=== PATIENT | female | born 1935 | race African-American/Black ===

== ENCOUNTER → 2016-11-19 | Outpatient (CLI) | payer MEDICARE, OTHER ==
[~2016-11-19] VITALS: Ht 160 cm; Wt 87.5 kg
[~2016-11-19] MED LIST: ALBU8.5H IH; ATOR10TA84 PO; AUD NEB; CHOL200018 PO; DIGO125T PO; DILT120C48 PO; DOCU250C91 PO; ESOM20CA31 PO; FERR-89 PO; FLUT1BLS PO; FURO20 PO; INSU3INS3 SQ; INSU3INS5 SQ; IPRNEB IH; LATA2.5D2 OS; LEVO112T4 PO; LISI-662 PO; ONDA4 PO; OXYB5 PO; PARO10TA89 PO; PRED5 PO; PREDAOS OS; RIVA15T PO; UMEC62.5 PO
[2016-11-19 11:46] VITALS: BP 151/80
[2016-11-19 14:46] LABS: GLUCOSE COMMENT 1 Doctor Notified; GLUCOSE,POINT OF CARE 135 MG/DL (70-110)
== END | disposition home or self-care (01) ==
LOC: SRCNTR 11:10
PROVIDERS: ATTEND Hospitalist
DX: J44.9 Chronic obstructive pulmonary disease, unspecified (principal); I10 Essential (primary) hypertension; E04.1 Nontoxic single thyroid nodule; E11.40 Type 2 diabetes mellitus with diabetic neuropathy, unspecified; I73.9 Peripheral vascular disease, unspecified; I48.91 Unspecified atrial fibrillation; Z85.038 Personal history of other malignant neoplasm of large intestine; N63 Unspecified lump in breast; R91.1 Solitary pulmonary nodule; N39.0 Urinary tract infection, site not specified; E78.5 Hyperlipidemia, unspecified; I77.1 Stricture of artery
CPT/HCPCS: 82962; G0463

== ENCOUNTER → 2016-11-30 | Outpatient (CLI) | payer MEDICARE, OTHER ==
[~2016-11-30] MED LIST changes: -PREDAOS OS
[2016-11-30 11:04] VITALS: BP 105/82
[2016-11-30 14:07] LABS: GLUCOSE COMMENT 1 Doctor Notified; GLUCOSE,POINT OF CARE 149 MG/DL (70-110)
== END | disposition home or self-care (01) ==
LOC: SRCNTR 10:52
PROVIDERS: ATTEND Hospitalist
DX: J44.9 Chronic obstructive pulmonary disease, unspecified (principal); I10 Essential (primary) hypertension; I48.91 Unspecified atrial fibrillation; E11.9 Type 2 diabetes mellitus without complications; E03.9 Hypothyroidism, unspecified; E78.5 Hyperlipidemia, unspecified
CPT/HCPCS: 82962; G0463

== ENCOUNTER → 2016-11-30 | Outpatient (CLI) | payer MEDICARE, OTHER | END | disposition home or self-care (01) | LOC: RADPV 09:02 | PROVIDERS: ATTEND Hospitalist | DX: J18.9 Pneumonia, unspecified organism (principal); I70.0 Atherosclerosis of aorta; I89.8 Other specified noninfective disorders of lymphatic vessels and lymph nodes; L92.8 Other granulomatous disorders of the skin and subcutaneous tissue | CPT/HCPCS: 71020 ==

== ENCOUNTER → 2016-11-30 | Outpatient (CLI) | payer MEDICARE, OTHER ==
[~2016-11-30] MED LIST changes: -FERR-89 PO; +FERS325 PO
[2016-11-30 12:26] LABS: BASOPHILS % (AUTO) 0.4 % (0.0-2.0); EOSINOPHILS % (AUTO) 2.4 % (1.0-6.0); HEMATOCRIT 42.7 % (36-46); HEMOGLOBIN 13.4 g/dL (12.0-16.0); LYMPHOCYTES # (AUTO) 1.9 K/uL (1.0-4.8); LYMPHOCYTES % (AUTO) 12.1 % (22.0-44.0); MEAN CORPUSCULAR HEMOGLOBIN 25.4 pg (26.0-34.0); MEAN CORPUSCULAR HGB CONC 31.3 G/dL (31.0-37.0); MEAN CORPUSCULAR VOLUME 81 fL (80-100); MONOCYTES # (AUTO) 0.7 K/uL (0.1-1.0); MONOCYTES % (AUTO) 4.6 % (2.0-9.0); NEUTROPHILS # (AUTO) 12.5 K/uL (1.8-7.7); NEUTROPHILS % (AUTO) 80.5 % (40.0-70.0); PLATELET COUNT (AUTO) 286 K/uL (150-450); RED BLOOD CELL COUNT(AUTO) 5.26 MIL/uL (4.00-5.20); RED CELL DISTRIBUTION WIDTH 19.4 % (11.5-14.5); WHITE BLOOD COUNT (AUTO) 15.5 K/uL (4.5-11.0)
[2016-11-30 12:40] LABS: ALANINE AMINOTRANSFERASE 17 U/L (12-78); ALBUMIN 2.5 g/dL (3.4-5.0); ANION GAP 5 mmol/L (8-16); ASPARTATE AMINOTRANSFERASE 34 U/L (15-37); BILIRUBIN,TOTAL 0.5 mg/dL (0.1-1.0); CALCIUM, TOTAL 9.1 mg/dL (8.8-10.5); CARBON DIOXIDE 32 mmol/L (22-29); CHLORIDE 101 mmol/L (98-107); CHOL/HDL RATIO 3.2 (3.9-5.7); CREATININE 1.03 mg/dL (0.60-1.30); GLOMERULAR FILTR. RATE CALC > 60 mL/min (>60); POTASSIUM 4.4 mmol/L (3.5-5.1); SODIUM SERUM 138 mmol/L (136-145); THYROID STIMULATING HORMONE 5.99 uIU/mL (0.36-3.74); UREA NITROGEN, BLOOD 10 mg/dL (7-18)
[2016-11-30 12:44] LABS: RBC MORPHOLOGY COMMENT ABNORMAL RBC MORPH
[2016-11-30 13:12] LABS: HEMOGLOBIN A1C 8.1 % (4.5-6.2)
== END | disposition home or self-care (01) ==
LOC: LABPV 08:59
PROVIDERS: ATTEND Internal Medicine Cardiovascular Disease
DX: I11.0 Hypertensive heart disease with heart failure (principal); I50.9 Heart failure, unspecified; E11.8 Type 2 diabetes mellitus with unspecified complications; M81.0 Age-related osteoporosis without current pathological fracture
CPT/HCPCS: 82306; 83036; 84439; 84443

== ENCOUNTER → 2016-12-13 | Outpatient (CLI) | payer MEDICARE, OTHER ==
[~2016-12-13] VITALS: Ht 160 cm; Wt 82.0 kg
[~2016-12-13] MED LIST changes: +FERR-89 PO; -FERS325 PO
[2016-12-13 11:16] VITALS: BP 89/67
== END | disposition home or self-care (01) ==
LOC: SRCNTR 11:09
PROVIDERS: ATTEND Internal Medicine Critical Care Medicine
DX: I10 Essential (primary) hypertension (principal); J44.9 Chronic obstructive pulmonary disease, unspecified; G47.33 Obstructive sleep apnea (adult) (pediatric); J96.10 Chronic respiratory failure, unspecified whether with hypoxia or hypercapnia; E03.9 Hypothyroidism, unspecified; E11.9 Type 2 diabetes mellitus without complications; C18.9 Malignant neoplasm of colon, unspecified; E66.01 Morbid (severe) obesity due to excess calories
CPT/HCPCS: G0463

== ENCOUNTER → 2016-12-31 | Outpatient (CLI) | payer MEDICARE, OTHER ==
[2016-12-31 11:21] VITALS: BP 136/62
[2016-12-31 14:07] LABS: GLUCOSE,POINT OF CARE 106 MG/DL (70-110)
== END | disposition home or self-care (01) ==
LOC: SRCNTR 11:07
PROVIDERS: ATTEND Hospitalist
DX: J44.9 Chronic obstructive pulmonary disease, unspecified (principal); I10 Essential (primary) hypertension; E03.9 Hypothyroidism, unspecified; E66.01 Morbid (severe) obesity due to excess calories; G47.33 Obstructive sleep apnea (adult) (pediatric); E78.5 Hyperlipidemia, unspecified; E11.40 Type 2 diabetes mellitus with diabetic neuropathy, unspecified; I73.9 Peripheral vascular disease, unspecified; I48.91 Unspecified atrial fibrillation; R91.1 Solitary pulmonary nodule; N63 Unspecified lump in breast; N39.0 Urinary tract infection, site not specified; I77.1 Stricture of artery; Z85.038 Personal history of other malignant neoplasm of large intestine
CPT/HCPCS: 82962; G0463

== ENCOUNTER → 2017-02-11 | Outpatient (CLI) | payer MEDICARE, OTHER ==
[~2017-02-11] VITALS: Ht 160 cm; Wt 81.5 kg
[2017-02-11 10:20] VITALS: BP 113/65
[2017-02-11 10:42] LABS: GLUCOSE,POINT OF CARE 118 MG/DL (70-110)
== END | disposition home or self-care (01) ==
LOC: SRCNTR 10:11
PROVIDERS: ATTEND Hospitalist
DX: E11.65 Type 2 diabetes mellitus with hyperglycemia (principal); J44.9 Chronic obstructive pulmonary disease, unspecified; I10 Essential (primary) hypertension; E78.5 Hyperlipidemia, unspecified; E11.40 Type 2 diabetes mellitus with diabetic neuropathy, unspecified; I73.9 Peripheral vascular disease, unspecified; I48.91 Unspecified atrial fibrillation; E04.1 Nontoxic single thyroid nodule; N63 Unspecified lump in breast; G47.33 Obstructive sleep apnea (adult) (pediatric); R91.8 Other nonspecific abnormal finding of lung field; Z99.81 Dependence on supplemental oxygen; Z85.038 Personal history of other malignant neoplasm of large intestine
CPT/HCPCS: 82962; G0463

== ENCOUNTER → 2017-03-18 | Outpatient (CLI) | payer MEDICARE, OTHER ==
[2017-03-18 12:59] LABS: HEMOGLOBIN A1C 7.3 % (4.5-6.2)
[2017-03-18 13:02] LABS: EOSINOPHILS % (AUTO) 0.3 % (1.0-6.0); HEMATOCRIT 48.3 % (36-46); HEMOGLOBIN 15.4 g/dL (12.0-16.0); LYMPHOCYTES # (AUTO) 0.9 K/uL (1.0-4.8); MEAN CORPUSCULAR HEMOGLOBIN 25.5 pg (26.0-34.0); MEAN CORPUSCULAR HGB CONC 31.9 G/dL (31.0-37.0); MEAN CORPUSCULAR VOLUME 80 fL (80-100); MONOCYTES # (AUTO) 0.5 K/uL (0.1-1.0); MONOCYTES % (AUTO) 2.3 % (2.0-9.0); NEUTROPHILS # (AUTO) 21.7 K/uL (1.8-7.7); NEUTROPHILS % (AUTO) 93.4 % (40.0-70.0); PLATELET COUNT (AUTO) 331 K/uL (150-450); RBC MORPHOLOGY COMMENT ABNORMAL RBC MORPH; RED BLOOD CELL COUNT(AUTO) 6.04 MIL/uL (4.00-5.20); RED CELL DISTRIBUTION WIDTH 19.7 % (11.5-14.5); WHITE BLOOD COUNT (AUTO) 23.2 K/uL (4.5-11.0)
[2017-03-18 13:48] LABS: ALANINE AMINOTRANSFERASE 40 U/L (12-78); ALBUMIN 2.6 g/dL (3.4-5.0); ANION GAP 5 mmol/L (8-16); ASPARTATE AMINOTRANSFERASE 28 U/L (15-37); BILIRUBIN,TOTAL 0.5 mg/dL (0.1-1.0); CALCIUM, TOTAL 9.3 mg/dL (8.8-10.5); CARBON DIOXIDE 32 mmol/L (22-29); CHLORIDE 101 mmol/L (98-107); CHOL/HDL RATIO 3.6 (3.9-5.7); CREATININE 0.91 mg/dL (0.60-1.30); GLOMERULAR FILTR. RATE CALC > 60 mL/min (>60); POTASSIUM 3.8 mmol/L (3.5-5.1); SODIUM SERUM 138 mmol/L (136-145); THYROID STIMULATING HORMONE 1.04 uIU/mL (0.36-3.74); TOTAL PROTEIN, SERUM 7.7 g/dL (6.4-8.2); UREA NITROGEN, BLOOD 18 mg/dL (7-18)
[2017-03-18 13:49] LABS: DIGOXIN < 0.20 ng/mL (0.90-2.00)
== END | disposition home or self-care (01) ==
LOC: LABPV 11:31
PROVIDERS: ATTEND Internal Medicine Cardiovascular Disease
DX: I11.0 Hypertensive heart disease with heart failure (principal); I50.9 Heart failure, unspecified; E55.9 Vitamin D deficiency, unspecified; E11.8 Type 2 diabetes mellitus with unspecified complications
CPT/HCPCS: 82306; 83036; 83735; 84439; 84443

== ENCOUNTER → 2017-03-25 | Outpatient (CLI) | payer MEDICARE, OTHER ==
[~2017-03-25] VITALS: Ht 160 cm; Wt 76.8 kg
[2017-03-25 11:21] VITALS: BP 114/66
[2017-03-25 16:32] LABS: GLUCOSE COMMENT 1 Received Meds; GLUCOSE COMMENT 3 Doctor Notified; GLUCOSE,POINT OF CARE 197 MG/DL (70-110)
== END | disposition home or self-care (01) ==
LOC: SRCNTR 11:12
PROVIDERS: ATTEND Hospitalist
DX: I10 Essential (primary) hypertension (principal); J44.9 Chronic obstructive pulmonary disease, unspecified; E11.65 Type 2 diabetes mellitus with hyperglycemia; E78.5 Hyperlipidemia, unspecified
CPT/HCPCS: 82962; G0463

== ENCOUNTER → 2017-05-03 | Outpatient (CLI) | payer MEDICARE, OTHER ==
[~2017-05-03] MED LIST changes: -LATA2.5D2 OS
[2017-05-03 13:36] LABS: BASOPHILS # (AUTO) 0.01 K/uL (0.00-0.20); BASOPHILS % (AUTO) 0.1 % (0.0-2.0); EOSINOPHILS # (AUTO) 0.15 K/uL (0.00-0.70); EOSINOPHILS % (AUTO) 0.72 % (1.0-6.0); HEMATOCRIT 43.3 % (36-46); HEMOGLOBIN 13.8 g/dL (12.0-16.0); LYMPHOCYTES # (AUTO) 1.3 K/uL (1.0-4.8); LYMPHOCYTES % (AUTO) 6.3 % (22.0-44.0); MEAN CORPUSCULAR HEMOGLOBIN 26.6 pg (26.0-34.0); MEAN CORPUSCULAR HGB CONC 31.9 G/dL (31.0-37.0); MEAN CORPUSCULAR VOLUME 83 fL (80-100); MONOCYTES # (AUTO) 0.9 K/uL (0.1-1.0); MONOCYTES % (AUTO) 4.5 % (2.0-9.0); NEUTROPHILS # (AUTO) 18.1 K/uL (1.8-7.7); PLATELET COUNT (AUTO) 267 K/uL (150-450); RED CELL DISTRIBUTION WIDTH 21.8 % (11.5-14.5); WHITE BLOOD COUNT (AUTO) 20.5 K/uL (4.5-11.0)
[2017-05-03 13:37] LABS: NEUTROPHILS % (AUTO) 88.4 % (40.0-70.0); RBC MORPHOLOGY COMMENT ABNORMAL RBC MORPH
[2017-05-03 13:50] LABS: HEMOGLOBIN A1C 9.1 % (4.5-6.2)
[2017-05-03 13:53] LABS: ALANINE AMINOTRANSFERASE 25 U/L (12-78); ALBUMIN 2.7 g/dL (3.4-5.0); ANION GAP 7 mmol/L (8-16); ASPARTATE AMINOTRANSFERASE 21 U/L (15-37); BILIRUBIN,TOTAL 0.5 mg/dL (0.1-1.0); CALCIUM, TOTAL 9.6 mg/dL (8.8-10.5); CARBON DIOXIDE 31 mmol/L (22-29); CHLORIDE 101 mmol/L (98-107); CHOL/HDL RATIO 2.7 (3.9-5.7); CREATININE 0.85 mg/dL (0.60-1.30); GLOMERULAR FILTR. RATE CALC > 60 mL/min (>60); POTASSIUM 3.7 mmol/L (3.5-5.1); SODIUM SERUM 139 mmol/L (136-145); THYROID STIMULATING HORMONE 3.85 uIU/mL (0.36-3.74); TOTAL PROTEIN, SERUM 7.8 g/dL (6.4-8.2); UREA NITROGEN, BLOOD 9 mg/dL (7-18)
== END | disposition home or self-care (01) ==
LOC: LABPV 11:31
PROVIDERS: ATTEND Internal Medicine Cardiovascular Disease
DX: I11.0 Hypertensive heart disease with heart failure (principal); I50.9 Heart failure, unspecified; E11.8 Type 2 diabetes mellitus with unspecified complications; E55.9 Vitamin D deficiency, unspecified
CPT/HCPCS: 82306; 83036; 83735; 84439; 84443

== ENCOUNTER 2017-07-18 09:49 | Inpatient (IN) | payer MEDICARE, OTHER ==
[~2017-07-18] VITALS: Ht 154.9 cm; Wt 83.7 kg
[~2017-07-18 09:49] MED LIST changes: +ACET-784 PO; -ALBU8.5H IH; +ALBU8.5H8 IH; -ATOR10TA84 PO; +CARB15DR94 OD; +CEFA1IV IV; +NTP TD; +ROSU10 PO
[2017-07-18 10:44] LABS: HEMATOCRIT 32.9 % (36-46); HEMOGLOBIN 10.7 g/dL (12.0-16.0); MEAN CORPUSCULAR HEMOGLOBIN 27.5 pg (26.0-34.0); MEAN CORPUSCULAR HGB CONC 32.5 G/dL (31.0-37.0); MEAN CORPUSCULAR VOLUME 85 fL (80-100); PLATELET COUNT (AUTO) 249 K/uL (150-450); RED BLOOD CELL COUNT(AUTO) 3.89 MIL/uL (4.00-5.20); RED CELL DISTRIBUTION WIDTH 17.9 % (11.5-14.5)
[2017-07-18 10:47] LABS: WHITE BLOOD COUNT (AUTO) 33.4 K/uL (4.5-11.0)
[2017-07-18 10:54] LABS: ANION GAP 2 mmol/L (8-16); CALCIUM, TOTAL 8.9 mg/dL (8.8-10.5); CARBON DIOXIDE 31 mmol/L (22-29); CHLORIDE 99 mmol/L (98-107); CREATININE 0.77 mg/dL (0.60-1.30); GLOMERULAR FILTR. RATE CALC > 60 mL/min (>60); POTASSIUM 4.4 mmol/L (3.5-5.1); SODIUM SERUM 132 mmol/L (136-145); UREA NITROGEN, BLOOD 18 mg/dL (7-18)
[2017-07-18 10:59] LABS: ALANINE AMINOTRANSFERASE 18 U/L (12-78); ALBUMIN 1.9 g/dL (3.4-5.0); ASPARTATE AMINOTRANSFERASE 13 U/L (15-37); BILIRUBIN,TOTAL 0.4 mg/dL (0.1-1.0)
[2017-07-18 11:01] LABS: BAND NEUTROPHILS % (MANUAL) 8 % (1-5); LYMPHOCYTES % (MANUAL) 4 % (22-44); TOTAL CELLS COUNTED 100
[2017-07-18 11:02] LABS: RBC MORPHOLOGY COMMENT ABNORMAL RBC MORPH
[2017-07-18 11:03] LABS: GLUCOSE,POINT OF CARE 217 MG/DL (70-110)
[2017-07-18 11:04] LABS: LACTIC ACID 1.3 mmol/L (0.4-2.0)
[2017-07-18 11:12] LABS: APPEARANCE,URINE CLOUDY (CLEAR); GLUCOSE, URINE (UA) NEGATIVE (NEGATIVE); KETONES,URINE NEGATIVE (NEGATIVE); LEUKOCYTE ESTERASE ,URINE LARGE (NEGATIVE); OCCULT BLOOD,URINE SMALL (NEGATIVE); PH,URINE 5.5 (5.0-8.0); PROTEIN,URINE SEE CONFIRM (NEGATIVE)
[2017-07-18 11:22] LABS: SULFOSALICYLIC ACID,URINE 3+ (Negative)
[2017-07-18 11:23] LABS: SQUAMOUS EPITHELIAL CELL,UR Few /LPF (None Seen); WBC,URINE 51-100 /HPF (0-5)
[2017-07-18] MEDS ORDERED: CefTRIAXone 1 GM/DEXTROSE 50 ML IV ONE (11:45)
[2017-07-18] MEDS ORDERED: ACETAMINOPHEN 325 MG TABLET PO PRN ×2 (13:15→13:45)
[2017-07-18] MEDS ORDERED: ONDANSETRON HCL 4 MG/2 ML VIAL IVP PRN (13:15)
[2017-07-18] MEDS ORDERED: ALBUTEROL SULFATE 2.5 MG/0.5 ML NEB SOLUTION NEB PRN (13:45)
[2017-07-18] MEDS ORDERED: POTASSIUM CHL 10 MEQ/WATER 50 ML IV PRN (13:45)
[2017-07-18] MEDS ORDERED: DEXTROSE 50%-WATER 25 GM/50 ML SYRINGE IVP PRN (13:45)
[2017-07-18] MEDS ORDERED: POTASSIUM CHLORIDE 20 MEQ ER TABLET PO PRN (13:45)
[2017-07-18 14:26] VITALS: BP 100/73
[2017-07-18] MEDS: DILTIAZEM HCL CD 120 MG ER CAPSULE PO SCH (14:53)
[2017-07-18 15:54] VITALS: BP 110/69
[2017-07-18] MEDS: RIVAROXABAN 15 MG TABLET PO SCH (17:39)
[2017-07-18] MEDS: INSULIN ASPART 100 UNITS/ML SQ PRN ×2 (17:46→22:04)
[2017-07-18 19:26] VITALS: BP 120/74
[2017-07-18] MEDS: DOCUSATE SODIUM 100 MG CAPSULE PO SCH (20:11)
[2017-07-18] MEDS: ROSUVASTATIN CALCIUM 10 MG TABLET PO SCH (20:11)
[2017-07-18 23:13] VITALS: BP 105/88
[2017-07-19 05:09] VITALS: BP 112/68
[2017-07-19] MEDS: INSULIN ASPART 100 UNITS/ML SQ PRN ×3 (05:59→18:03)
[2017-07-19 06:53] LABS: GLUCOSE COMMENT 1 Juice/Food/D50 Given; GLUCOSE,POINT OF CARE 177 MG/DL (70-110)
[2017-07-19 06:53] LABS: GLUCOSE,POINT OF CARE 162 MG/DL (70-110)
[2017-07-19 07:50] VITALS: BP 130/73
[2017-07-19] MEDS: PANTOPRAZOLE SODIUM 40 MG DR TABLET PO SCH (09:20)
[2017-07-19] MEDS: DOCUSATE SODIUM 100 MG CAPSULE PO SCH ×2 (09:20→20:31)
[2017-07-19] MEDS: DILTIAZEM HCL CD 120 MG ER CAPSULE PO SCH (09:20)
[2017-07-19] MEDS: CHOLECALCIFEROL (VIT D3) 1,000 UNITS TABLET PO SCH (09:20)
[2017-07-19] MEDS: DIGOXIN 125 MCG TABLET PO SCH (09:20)
[2017-07-19] MEDS ORDERED: SODIUM CHLORIDE 0.9% 250 ML IV ONE (09:22)
[2017-07-19] MEDS: CefTRIAXone 1 GM/DEXTROSE 50 ML IV SCH (09:23)
[2017-07-19 11:15] VITALS: BP 133/73
[2017-07-19] MEDS ORDERED: INFLUENZA VIRUS VACCINE QVS 2017-18 (3YR+)/PF 60 MCG/0.5 ML SYRINGE IM ONE (16:00)
[2017-07-19] MEDS: RIVAROXABAN 15 MG TABLET PO SCH (18:01)
[2017-07-19 20:00] VITALS: BP 156/63
[2017-07-19] MEDS: MAGNESIUM HYDROXIDE SUSPENSION 30 ML UDCUP PO PRN (20:30)
[2017-07-19] MEDS: ROSUVASTATIN CALCIUM 10 MG TABLET PO SCH (20:30)
[2017-07-20] VITALS (7 sets, daily range): BP systolic 128–173; BP diastolic 56–94
[2017-07-20 06:07] LABS: EOSINOPHILS % (AUTO) 1.2 % (1.0-6.0); HEMATOCRIT 34.6 % (36-46); HEMOGLOBIN 11.2 g/dL (12.0-16.0); LYMPHOCYTES # (AUTO) 1.4 K/uL (1.0-4.8); LYMPHOCYTES % (AUTO) 6.7 % (22.0-44.0); MEAN CORPUSCULAR HEMOGLOBIN 27.4 pg (26.0-34.0); MEAN CORPUSCULAR HGB CONC 32.4 G/dL (31.0-37.0); MEAN CORPUSCULAR VOLUME 85 fL (80-100); MONOCYTES # (AUTO) 0.7 K/uL (0.1-1.0); MONOCYTES % (AUTO) 3.3 % (2.0-9.0); NEUTROPHILS # (AUTO) 18.2 K/uL (1.8-7.7); PLATELET COUNT (AUTO) 276 K/uL (150-450); RED BLOOD CELL COUNT(AUTO) 4.08 MIL/uL (4.00-5.20); RED CELL DISTRIBUTION WIDTH 17.7 % (11.5-14.5); WHITE BLOOD COUNT (AUTO) 20.6 K/uL (4.5-11.0)
[2017-07-20] MEDS: INSULIN ASPART 100 UNITS/ML SQ PRN ×4 (06:35→20:52)
[2017-07-20 06:36] LABS: ANION GAP 3 mmol/L (8-16); CALCIUM, TOTAL 8.5 mg/dL (8.8-10.5); CARBON DIOXIDE 32 mmol/L (22-29); CHLORIDE 98 mmol/L (98-107); GLOMERULAR FILTR. RATE CALC > 60 mL/min (>60); POTASSIUM 3.9 mmol/L (3.5-5.1); SODIUM SERUM 133 mmol/L (136-145); UREA NITROGEN, BLOOD 9 mg/dL (7-18)
[2017-07-20 06:38] LABS: GLUCOSE,POINT OF CARE 205 MG/DL (70-110)
[2017-07-20 06:48] LABS: GLUCOSE,POINT OF CARE 169 MG/DL (70-110)
[2017-07-20 06:48] LABS: GLUCOSE,POINT OF CARE 225 MG/DL (70-110)
[2017-07-20 06:48] LABS: GLUCOSE,POINT OF CARE 189 MG/DL (70-110)
[2017-07-20 06:59] LABS: NEUTROPHILS % (AUTO) 88.8 % (40.0-70.0)
[2017-07-20] MEDS: DOCUSATE SODIUM 100 MG CAPSULE PO SCH ×2 (08:04→20:43)
[2017-07-20] MEDS: DILTIAZEM HCL CD 120 MG ER CAPSULE PO SCH (08:06)
[2017-07-20] MEDS: PANTOPRAZOLE SODIUM 40 MG DR TABLET PO SCH (08:06)
[2017-07-20] MEDS: CHOLECALCIFEROL (VIT D3) 1,000 UNITS TABLET PO SCH (08:06)
[2017-07-20] MEDS: DIGOXIN 125 MCG TABLET PO SCH (08:07)
[2017-07-20 08:50] LABS: RBC MORPHOLOGY COMMENT ABNORMAL RBC MORPH
[2017-07-20] MEDS: CefTRIAXone 1 GM/DEXTROSE 50 ML IV SCH (09:58)
[2017-07-20] MEDS: RIVAROXABAN 15 MG TABLET PO SCH (17:07)
[2017-07-20 17:13] LABS: GLUCOSE,POINT OF CARE 330 MG/DL (70-110)
[2017-07-20] MEDS ORDERED: BISACODYL 5 MG EC TABLET PO PRN (18:15)
[2017-07-20] MEDS: MAGNESIUM HYDROXIDE SUSPENSION 30 ML UDCUP PO PRN (20:43)
[2017-07-20] MEDS: ROSUVASTATIN CALCIUM 10 MG TABLET PO SCH (22:00)
[2017-07-20 23:33] LABS: GLUCOSE,POINT OF CARE 299 MG/DL (70-110)
[2017-07-21 05:06] VITALS: BP 124/88
[2017-07-21] MEDS: INSULIN ASPART 100 UNITS/ML SQ PRN ×4 (06:26→20:27)
[2017-07-21 06:27] LABS: BASOPHILS % (AUTO) 0.2 % (0.0-2.0); EOSINOPHILS % (AUTO) 1.2 % (1.0-6.0); HEMATOCRIT 36.3 % (36-46); HEMOGLOBIN 11.6 g/dL (12.0-16.0); LYMPHOCYTES # (AUTO) 2.2 K/uL (1.0-4.8); LYMPHOCYTES % (AUTO) 10.3 % (22.0-44.0); MEAN CORPUSCULAR HEMOGLOBIN 27.2 pg (26.0-34.0); MEAN CORPUSCULAR VOLUME 85 fL (80-100); MONOCYTES # (AUTO) 1.2 K/uL (0.1-1.0); MONOCYTES % (AUTO) 5.5 % (2.0-9.0); NEUTROPHILS # (AUTO) 17.6 K/uL (1.8-7.7); NEUTROPHILS % (AUTO) 82.8 % (40.0-70.0); PLATELET COUNT (AUTO) 299 K/uL (150-450); RED BLOOD CELL COUNT(AUTO) 4.27 MIL/uL (4.00-5.20); RED CELL DISTRIBUTION WIDTH 17.7 % (11.5-14.5); WHITE BLOOD COUNT (AUTO) 21.3 K/uL (4.5-11.0)
[2017-07-21 07:33] VITALS: BP 116/68
[2017-07-21] MEDS: DOCUSATE SODIUM 100 MG CAPSULE PO SCH ×2 (08:18→20:23)
[2017-07-21] MEDS: CHOLECALCIFEROL (VIT D3) 1,000 UNITS TABLET PO SCH (08:18)
[2017-07-21] MEDS: PANTOPRAZOLE SODIUM 40 MG DR TABLET PO SCH (08:18)
[2017-07-21] MEDS: DIGOXIN 125 MCG TABLET PO SCH (08:18)
[2017-07-21] MEDS: DILTIAZEM HCL CD 120 MG ER CAPSULE PO SCH (08:18)
[2017-07-21 08:51] LABS: RBC MORPHOLOGY COMMENT ABNORMAL RBC MORPH
[2017-07-21 10:02] LABS: GLUCOSE,POINT OF CARE 235 MG/DL (70-110)
[2017-07-21] MEDS: CefTRIAXone 1 GM/DEXTROSE 50 ML IV SCH (10:46)
[2017-07-21] MEDS: INSULIN DETEMIR 100 UNITS/ML SQ SCH (10:52)
[2017-07-21 11:11] LABS: GLUCOSE,POINT OF CARE 191 MG/DL (70-110)
[2017-07-21 11:46] VITALS: BP 99/62
[2017-07-21 15:50] VITALS: BP 154/62
[2017-07-21] MEDS: RIVAROXABAN 15 MG TABLET PO SCH (16:34)
[2017-07-21 16:48] LABS: GLUCOSE,POINT OF CARE 234 MG/DL (70-110)
[2017-07-21 19:31] VITALS: BP 153/70
[2017-07-21] MEDS: ROSUVASTATIN CALCIUM 10 MG TABLET PO SCH (20:23)
[2017-07-21 22:02] LABS: GLUCOSE,POINT OF CARE 247 MG/DL (70-110)
[2017-07-21 23:40] VITALS: BP 154/57
[2017-07-22 04:49] VITALS: BP 160/73
[2017-07-22] MEDS: INSULIN ASPART 100 UNITS/ML SQ PRN ×2 (05:44→12:26)
[2017-07-22 06:40] LABS: BASOPHILS % (AUTO) 0.1 % (0.0-2.0); EOSINOPHILS % (AUTO) 2.3 % (1.0-6.0); HEMATOCRIT 36.1 % (36-46); HEMOGLOBIN 11.6 g/dL (12.0-16.0); LYMPHOCYTES # (AUTO) 1.7 K/uL (1.0-4.8); LYMPHOCYTES % (AUTO) 10.2 % (22.0-44.0); MEAN CORPUSCULAR HEMOGLOBIN 27.1 pg (26.0-34.0); MEAN CORPUSCULAR HGB CONC 32.1 G/dL (31.0-37.0); MEAN CORPUSCULAR VOLUME 85 fL (80-100); MONOCYTES # (AUTO) 0.7 K/uL (0.1-1.0); MONOCYTES % (AUTO) 4.4 % (2.0-9.0); NEUTROPHILS # (AUTO) 13.8 K/uL (1.8-7.7); PLATELET COUNT (AUTO) 284 K/uL (150-450); RED BLOOD CELL COUNT(AUTO) 4.27 MIL/uL (4.00-5.20); RED CELL DISTRIBUTION WIDTH 17.7 % (11.5-14.5); WHITE BLOOD COUNT (AUTO) 16.7 K/uL (4.5-11.0)
[2017-07-22 07:55] VITALS: BP 162/69
[2017-07-22] MEDS: CHOLECALCIFEROL (VIT D3) 1,000 UNITS TABLET PO SCH (08:41)
[2017-07-22] MEDS: PANTOPRAZOLE SODIUM 40 MG DR TABLET PO SCH (08:41)
[2017-07-22] MEDS: DILTIAZEM HCL CD 120 MG ER CAPSULE PO SCH (08:41)
[2017-07-22] MEDS: DOCUSATE SODIUM 100 MG CAPSULE PO SCH (08:41)
[2017-07-22] MEDS: DIGOXIN 125 MCG TABLET PO SCH (08:41)
[2017-07-22] MEDS: INSULIN DETEMIR 100 UNITS/ML SQ SCH (08:42)
[2017-07-22 09:06] LABS: RBC MORPHOLOGY COMMENT ABNORMAL RBC MORPH
[2017-07-22] MEDS: CefTRIAXone 1 GM/DEXTROSE 50 ML IV SCH (11:17)
[2017-07-22 11:18] LABS: GLUCOSE COMMENT 1 Received Meds; GLUCOSE,POINT OF CARE 173 MG/DL (70-110)
[2017-07-22 11:18] LABS: GLUCOSE,POINT OF CARE 249 MG/DL (70-110)
[2017-07-22 11:20] VITALS: BP 153/74
[2017-07-22] MEDS ORDERED: SODIUM CHLORIDE 0.9% 250 ML IV ONE (11:20)
[2017-07-23] MEDS ORDERED: INSULIN DETEMIR 100 UNITS/ML SQ SCH (09:00)
[2017-09-09] MEDS ORDERED: INSU3INS3 SQ (13:20)
[2017-09-09] MEDS ORDERED: INSU100I3 SQ (13:20)
[2017-09-09] MEDS ORDERED: UMEC62.5 PO (13:20)
[2017-09-09] MEDS ORDERED: FLUT1BLS IH (13:20)
[2017-09-09] MEDS ORDERED: OXYB5 PO (13:20)
[2017-09-09] MEDS ORDERED: FURO20 PO (13:20)
[2017-09-09] MEDS ORDERED: ALBU8.5H8 IH (13:27)
[2017-09-09] MEDS ORDERED: ESOM20CA31 PO (13:27)
[2017-09-09] MEDS ORDERED: ONDA4 PO (13:27)
[2017-09-09] MEDS ORDERED: FERR-89 PO (13:27)
[2017-09-09] MEDS ORDERED: PARO10TA89 PO (13:27)
[2017-09-09] MEDS ORDERED: LISI-662 PO (13:27)
[2017-09-09] MEDS ORDERED: PRED5 PO (13:27)
[2017-09-09] MEDS ORDERED: ROSU10 PO (13:32)
[2017-09-09] MEDS ORDERED: CALC-1038 PO (13:32)
[2017-09-09] MEDS ORDERED: ASCO500 PO (13:32)
== END 2017-07-22 17:15 | DRG 689 ==
LOC: EMS 09:51 → 6N 12:45
PROVIDERS: ADMIT Internal Medicine; ATTEND Internal Medicine
DX: N39.0 Urinary tract infection, site not specified (principal); G92 Toxic encephalopathy; E43 Unspecified severe protein-calorie malnutrition; I50.42 Chronic combined systolic (congestive) and diastolic (congestive) heart failure; E11.40 Type 2 diabetes mellitus with diabetic neuropathy, unspecified; I11.0 Hypertensive heart disease with heart failure; I48.2 Chronic atrial fibrillation; J44.9 Chronic obstructive pulmonary disease, unspecified; B96.20 Unspecified Escherichia coli [E. coli] as the cause of diseases classified elsewhere; E03.9 Hypothyroidism, unspecified; E55.9 Vitamin D deficiency, unspecified; E78.00 Pure hypercholesterolemia, unspecified; Z79.4 Long term (current) use of insulin; Z87.891 Personal history of nicotine dependence; Z79.01 Long term (current) use of anticoagulants; Z79.899 Other long term (current) drug therapy; Z90.49 Acquired absence of other specified parts of digestive tract; Z87.81 Personal history of (healed) traumatic fracture; Z68.34 Body mass index [BMI] 34.0-34.9, adult
CPT/HCPCS: 51701; 82962; 83605; 87081; 87086; 93005; 96374; 97163; 97530; 99285; J0696; J7050

== ENCOUNTER → 2017-09-09 | Outpatient (CLI) | payer MEDICARE, OTHER ==
[~2017-09-09] MED LIST changes: +ASCO500 PO; +CALC-1038 PO; -CEFA1IV IV; +FLUT1BLS IH; -FLUT1BLS PO; +INSU100I3 SQ; -INSU3INS5 SQ; -NTP TD
[2017-09-09 12:26] VITALS: BP 92/56
[2017-09-09 16:27] LABS: GLUCOSE,POINT OF CARE 113 MG/DL (70-110)
== END | disposition home or self-care (01) ==
LOC: SRCNTR 11:57
PROVIDERS: ATTEND Hospitalist
DX: I11.0 Hypertensive heart disease with heart failure (principal); I50.9 Heart failure, unspecified; J44.9 Chronic obstructive pulmonary disease, unspecified; G47.30 Sleep apnea, unspecified; E11.9 Type 2 diabetes mellitus without complications; I48.0 Paroxysmal atrial fibrillation; E11.40 Type 2 diabetes mellitus with diabetic neuropathy, unspecified; E04.1 Nontoxic single thyroid nodule; N63.10 Unspecified lump in the right breast, unspecified quadrant; Z90.49 Acquired absence of other specified parts of digestive tract; Z85.038 Personal history of other malignant neoplasm of large intestine
CPT/HCPCS: 82962; G0463

== ENCOUNTER → 2017-11-05 | Outpatient (CLI) | payer MEDICARE, OTHER ==
[~2017-11-05] VITALS: Ht 160 cm; Wt 76.0 kg
[2017-11-05 10:52] VITALS: BP 111/87
== END | disposition home or self-care (01) ==
LOC: SRCNTR 10:31
PROVIDERS: ATTEND Internal Medicine Critical Care Medicine
DX: G47.33 Obstructive sleep apnea (adult) (pediatric) (principal); I10 Essential (primary) hypertension; J44.1 Chronic obstructive pulmonary disease with (acute) exacerbation; J96.10 Chronic respiratory failure, unspecified whether with hypoxia or hypercapnia; E03.9 Hypothyroidism, unspecified; E11.9 Type 2 diabetes mellitus without complications; C18.9 Malignant neoplasm of colon, unspecified; E66.01 Morbid (severe) obesity due to excess calories
CPT/HCPCS: G0463

== ENCOUNTER → 2017-11-14 | Outpatient (CLI) | payer MEDICARE, OTHER ==
[~2017-11-14] VITALS: Ht 160 cm; Wt 76.0 kg
[~2017-11-14] MED LIST changes: +DIGO-44 PO; -DIGO125T PO
[2017-11-14 10:30] VITALS: BP 129/60
[2017-11-14 14:27] LABS: GLUCOMETER DEV NAME(LOC) SHC; GLUCOSE,POINT OF CARE 206 MG/DL (70-110)
== END | disposition home or self-care (01) ==
LOC: SRCNTR 10:04
PROVIDERS: ATTEND Hospitalist
DX: E11.65 Type 2 diabetes mellitus with hyperglycemia (principal); J44.9 Chronic obstructive pulmonary disease, unspecified; I10 Essential (primary) hypertension; E03.9 Hypothyroidism, unspecified; K21.9 Gastro-esophageal reflux disease without esophagitis; E66.9 Obesity, unspecified; G47.33 Obstructive sleep apnea (adult) (pediatric); I48.91 Unspecified atrial fibrillation; E11.51 Type 2 diabetes mellitus with diabetic peripheral angiopathy without gangrene; E04.1 Nontoxic single thyroid nodule; N63.11 Unspecified lump in the right breast, upper outer quadrant; S72.009A Fracture of unspecified part of neck of unspecified femur, initial encounter for closed fracture; X58.XXXA Exposure to other specified factors, initial encounter; Y93.89 Activity, other specified; Y92.89 Other specified places as the place of occurrence of the external cause; Y99.8 Other external cause status; Z85.038 Personal history of other malignant neoplasm of large intestine
CPT/HCPCS: 82962; G0463

== ENCOUNTER → 2017-11-14 | Outpatient (CLI) | payer MEDICARE, OTHER ==
[2017-11-14 10:52] LABS: BASOPHILS % (AUTO) 0.4 % (0.0-2.0); EOSINOPHILS % (AUTO) 1.8 % (1.0-6.0); HEMOGLOBIN 12.5 g/dL (12.0-16.0); LYMPHOCYTES # (AUTO) 2.2 K/uL (1.0-4.8); LYMPHOCYTES % (AUTO) 14.9 % (22.0-44.0); MEAN CORPUSCULAR HEMOGLOBIN 24.4 pg (26.0-34.0); MEAN CORPUSCULAR HGB CONC 31.2 G/dL (31.0-37.0); MEAN CORPUSCULAR VOLUME 78 fL (80-100); MONOCYTES # (AUTO) 0.8 K/uL (0.1-1.0); MONOCYTES % (AUTO) 5.3 % (2.0-9.0); NEUTROPHILS # (AUTO) 11.3 K/uL (1.8-7.7); NEUTROPHILS % (AUTO) 77.6 % (40.0-70.0); PLATELET COUNT (AUTO) 252 K/uL (150-450); RED BLOOD CELL COUNT(AUTO) 5.12 MIL/uL (4.00-5.20); RED CELL DISTRIBUTION WIDTH 19.7 % (11.5-14.5)
[2017-11-14 11:18] LABS: ALANINE AMINOTRANSFERASE 18 U/L (12-78); ALBUMIN 2.5 g/dL (3.4-5.0); ALKALINE PHOSPHATASE 109 U/L (46-116); ANION GAP 4 mmol/L (8-16); ASPARTATE AMINOTRANSFERASE 26 U/L (15-37); BILIRUBIN,TOTAL 0.3 mg/dL (0.1-1.0); CALCIUM, TOTAL 9.4 mg/dL (8.8-10.5); CARBON DIOXIDE 33 mmol/L (22-29); CHLORIDE 102 mmol/L (98-107); CHOL/HDL RATIO 2.6 (3.9-5.7); CHOLESTEROL 145 mg/dL (131-200); DIGOXIN 0.81 ng/mL (0.90-2.00); FREE T4 (FREE THYROXINE) 1.37 ng/dL (0.76-1.46); GLOMERULAR FILTR. RATE CALC > 60 mL/min (>60); GLUCOSE,RANDOM 186 mg/dL (70-110); HDL CHOLESTEROL 56 mg/dL (40-60); LDL CHOL (CALC.) 75 mg/dL (0-130); POTASSIUM 4.4 mmol/L (3.5-5.1); SODIUM SERUM 139 mmol/L (136-145); THYROID STIMULATING HORMONE 8.17 uIU/mL (0.36-3.74); TOTAL PROTEIN, SERUM 7.9 g/dL (6.4-8.2); TRIGLYCERIDES 72 mg/dL (15-150); UREA NITROGEN, BLOOD 13 mg/dL (7-18)
[2017-11-14 11:49] LABS: HEMOGLOBIN A1C 10.5 % (4.5-6.2)
== END | disposition home or self-care (01) ==
LOC: LABPV 08:55
PROVIDERS: ATTEND Internal Medicine Cardiovascular Disease
DX: I11.0 Hypertensive heart disease with heart failure (principal); I50.9 Heart failure, unspecified; E11.8 Type 2 diabetes mellitus with unspecified complications; E55.9 Vitamin D deficiency, unspecified
CPT/HCPCS: 82306; 83036; 83735; 84439; 84443

== ENCOUNTER 2018-02-01 12:45 | Inpatient (IN) | payer MEDICARE, OTHER ==
[~2018-02-01] VITALS: Ht 162.6 cm; Wt 78.8 kg
[2018-02-01] MEDS ORDERED: ESOM40CA54 PO (13:02)
[2018-02-01] MEDS ORDERED: SODIUM CHLORIDE 0.9% 1,000 ML IV ONE ×2 (13:15→15:45)
[2018-02-01 14:19] LABS: BASOPHILS % (AUTO) 0.9 % (0.0-2.0); EOSINOPHILS % (AUTO) 3.2 % (1.0-6.0); HEMATOCRIT 44.8 % (36-46); HEMOGLOBIN 14.4 g/dL (12.0-16.0); LYMPHOCYTES # (AUTO) 1.6 K/uL (1.0-4.8); LYMPHOCYTES % (AUTO) 12.8 % (22.0-44.0); MEAN CORPUSCULAR HEMOGLOBIN 25.3 pg (26.0-34.0); MEAN CORPUSCULAR HGB CONC 32.2 G/dL (31.0-37.0); MEAN CORPUSCULAR VOLUME 79 fL (80-100); MONOCYTES # (AUTO) 0.7 K/uL (0.1-1.0); MONOCYTES % (AUTO) 5.8 % (2.0-9.0); NEUTROPHILS # (AUTO) 9.8 K/uL (1.8-7.7); NEUTROPHILS % (AUTO) 77.3 % (40.0-70.0); PLATELET COUNT (AUTO) 252 K/uL (150-450); RED BLOOD CELL COUNT(AUTO) 5.69 MIL/uL (4.00-5.20); RED CELL DISTRIBUTION WIDTH 18.8 % (11.5-14.5)
[2018-02-01 14:30] LABS: ANION GAP 2 mmol/L (8-16); CALCIUM, TOTAL 9.3 mg/dL (8.8-10.5); CARBON DIOXIDE 34 mmol/L (22-29); CHLORIDE 100 mmol/L (98-107); CREATININE 0.82 mg/dL (0.60-1.30); GLOMERULAR FILTR. RATE CALC > 60 mL/min (>60); GLUCOSE,RANDOM 176 mg/dL (70-110); POTASSIUM 3.6 mmol/L (3.5-5.1); SODIUM SERUM 136 mmol/L (136-145); UREA NITROGEN, BLOOD 10 mg/dL (7-18)
[2018-02-01 14:36] LABS: ALANINE AMINOTRANSFERASE 19 U/L (12-78); ALBUMIN 2.3 g/dL (3.4-5.0); ALKALINE PHOSPHATASE 92 U/L (46-116); ASPARTATE AMINOTRANSFERASE 25 U/L (15-37); BILIRUBIN,TOTAL 0.5 mg/dL (0.1-1.0); CREATINE KINASE, TOTAL 31 U/L (26-192); TOTAL PROTEIN, SERUM 7.9 g/dL (6.4-8.2)
[2018-02-01 15:10] LABS: APPEARANCE,URINE TURBID (CLEAR); BILIRUBIN,URINE NEGATIVE (NEGATIVE); GLUCOSE, URINE (UA) NEGATIVE (NEGATIVE); KETONES,URINE TRACE mg/dL (NEGATIVE); LEUKOCYTE ESTERASE ,URINE SMALL (NEGATIVE); NITRATE,URINE NEGATIVE (NEGATIVE); OCCULT BLOOD,URINE SMALL (NEGATIVE); PROTEIN,URINE SEE CONFIRM (NEGATIVE)
[2018-02-01 15:17] LABS: BACTERIA,URINE Many /HPF (None Seen); SQUAMOUS EPITHELIAL CELL,UR Few /LPF (None Seen); SULFOSALICYLIC ACID,URINE 3+ (Negative)
[2018-02-01] MEDS ORDERED: CefTRIAXone SODIUM 1 GM in DEXTROSE 5%-WATER 10 ML IV ONE ×2 (15:30→18:30)
[2018-02-01] MEDS ORDERED: ONDANSETRON HCL 4 MG/2 ML VIAL IVP PRN (15:45)
[2018-02-01] MEDS ORDERED: ACETAMINOPHEN 325 MG TABLET PO PRN ×2 (15:45→16:15)
[2018-02-01] MEDS ORDERED: POTASSIUM CHLORIDE 20 MEQ ER TABLET PO ONE (16:00)
[2018-02-01] MEDS ORDERED: ALBUTEROL SULFATE HFA 90 MCG/PUFF 8 GM INHALER IH PRN (16:15)
[2018-02-01] MEDS ORDERED: ONDANSETRON HCL 4 MG TABLET PO PRN (16:15)
[2018-02-01] MEDS ORDERED: BISACODYL 10 MG RECTAL RECTAL SUPPOSITORY PR PRN (16:30)
[2018-02-01] MEDS ORDERED: MAGNESIUM HYDROXIDE SUSPENSION 30 ML UDCUP PO PRN (16:30)
[2018-02-01 16:34] LABS: DIGOXIN 2.73 ng/mL (0.90-2.00)
[2018-02-01 16:50] LABS: THYROID STIMULATING HORMONE 5.58 uIU/mL (0.36-3.74)
[2018-02-01] MEDS: SODIUM CHLORIDE 0.9% IV SCH (16:54)
[2018-02-01] MEDS: POTASSIUM CHLORIDE IV SCH (16:54)
[2018-02-01] MEDS ORDERED: CefTRIAXone SODIUM 1 GM/VIAL IM SCH (17:15)
[2018-02-01] MEDS ORDERED: [UNRECOGNIZED DRUG - OTHER] SQ SCH (17:30)
[2018-02-01] MEDS: RIVAROXABAN 15 MG TABLET PO SCH (17:32)
[2018-02-01] MEDS ORDERED: DEXTROSE 50%-WATER 25 GM/50 ML SYRINGE IVP PRN (18:00)
[2018-02-01 18:06] VITALS: BP 139/76
[2018-02-01 18:12] LABS: GLUCOMETER DEV NAME(LOC) 5N 1P; GLUCOSE,POINT OF CARE 173 MG/DL (70-110)
[2018-02-01 18:21] VITALS: BP 139/76
[2018-02-01 20:23] VITALS: BP 143/84
[2018-02-01] MEDS: CARBOXYMETHYLCELLULOSE SODIUM 0.4 ML OPHTHALMIC SOLUTION [PF] OD SCH (20:47)
[2018-02-01] MEDS: ROSUVASTATIN CALCIUM 10 MG TABLET PO SCH (20:48)
[2018-02-01] MEDS: DOCUSATE SODIUM 250 MG CAPSULE PO SCH (20:48)
[2018-02-01] MEDS: INSULIN LISPRO 100 UNITS/ML SQ PRN (20:58)
[2018-02-01] MEDS: IPRATROPIUM BROMIDE 0.5 MG/2.5 ML NEB SOLUTION NEB SCH (21:00)
[2018-02-01] MEDS: ALBUTEROL SULFATE 2.5 MG/0.5 ML NEB SOLUTION NEB SCH (21:00)
[2018-02-01 23:21] VITALS: BP 149/84
[2018-02-01] MEDS ORDERED: INFLUENZA VIRUS VACCINE QVS 2017-18 (3YR+)/PF 60 MCG/0.5 ML SYRINGE IM ONE (23:45)
[2018-02-02] VITALS (7 sets, daily range): BP systolic 106–165; BP diastolic 64–87
[2018-02-02] MEDS: OXYBUTYNIN CHLORIDE 5 MG TABLET PO SCH ×3 (00:18→20:18)
[2018-02-02] MEDS: POTASSIUM CHLORIDE IV SCH ×2 (02:48→12:37)
[2018-02-02] MEDS: SODIUM CHLORIDE 0.9% IV SCH ×2 (02:48→12:37)
[2018-02-02 05:08] LABS: BASOPHILS % (AUTO) 1.2 % (0.0-2.0); EOSINOPHILS % (AUTO) 3.3 % (1.0-6.0); HEMATOCRIT 44.5 % (36-46); HEMOGLOBIN 14.2 g/dL (12.0-16.0); LYMPHOCYTES % (AUTO) 8.4 % (22.0-44.0); MEAN CORPUSCULAR HEMOGLOBIN 25.3 pg (26.0-34.0); MEAN CORPUSCULAR HGB CONC 31.9 G/dL (31.0-37.0); MEAN CORPUSCULAR VOLUME 79 fL (80-100); MONOCYTES # (AUTO) 0.8 K/uL (0.1-1.0); MONOCYTES % (AUTO) 6.2 % (2.0-9.0); NEUTROPHILS # (AUTO) 10.1 K/uL (1.8-7.7); NEUTROPHILS % (AUTO) 80.9 % (40.0-70.0); PLATELET COUNT (AUTO) 236 K/uL (150-450); RED BLOOD CELL COUNT(AUTO) 5.61 MIL/uL (4.00-5.20); RED CELL DISTRIBUTION WIDTH 19.4 % (11.5-14.5)
[2018-02-02 05:28] LABS: ALANINE AMINOTRANSFERASE 20 U/L (12-78); ALKALINE PHOSPHATASE 85 U/L (46-116); ANION GAP 5 mmol/L (8-16); ASPARTATE AMINOTRANSFERASE 29 U/L (15-37); BILIRUBIN,TOTAL 0.3 mg/dL (0.1-1.0); CALCIUM, TOTAL 8.4 mg/dL (8.8-10.5); CARBON DIOXIDE 30 mmol/L (22-29); CHLORIDE 102 mmol/L (98-107); CHOL/HDL RATIO 3.3 (3.9-5.7); CHOLESTEROL 128 mg/dL (131-200); CREATININE 0.66 mg/dL (0.60-1.30); FREE T4 (FREE THYROXINE) 1.22 ng/dL (0.76-1.46); GLOMERULAR FILTR. RATE CALC > 60 mL/min (>60); GLUCOSE,RANDOM 167 mg/dL (70-110); HDL CHOLESTEROL 39 mg/dL (40-60); LDL CHOL (CALC.) 72 mg/dL (0-130); PHOSPHORUS 2.8 mg/dL (2.5-4.9); POTASSIUM 3.6 mmol/L (3.5-5.1); SODIUM SERUM 137 mmol/L (136-145); TOTAL PROTEIN, SERUM 7.3 g/dL (6.4-8.2); TRIGLYCERIDES 87 mg/dL (15-150); UREA NITROGEN, BLOOD 8 mg/dL (7-18)
[2018-02-02] MEDS: LEVOTHYROXINE SODIUM 112 MCG TABLET PO SCH (06:03)
[2018-02-02] MEDS: INSULIN LISPRO 100 UNITS/ML SQ PRN ×4 (06:07→21:46)
[2018-02-02 07:43] LABS: GLUCOMETER DEV NAME(LOC) 5S 1M; GLUCOSE,POINT OF CARE 172 MG/DL (70-110)
[2018-02-02 07:43] LABS: GLUCOMETER DEV NAME(LOC) 5S 1M; GLUCOSE,POINT OF CARE 252 MG/DL (70-110)
[2018-02-02] MEDS: DOCUSATE SODIUM 250 MG CAPSULE PO SCH ×2 (08:07→20:18)
[2018-02-02] MEDS: FERROUS SULFATE 325 MG EC TABLET PO SCH (08:07)
[2018-02-02] MEDS: CHOLECALCIFEROL (VIT D3) 1,000 UNITS TABLET PO SCH (08:07)
[2018-02-02] MEDS: ESOMEPRAZOLE MAG TRIHYDRATE 20 MG CAPSULE PO SCH (08:08)
[2018-02-02] MEDS: CARBOXYMETHYLCELLULOSE SODIUM 0.4 ML OPHTHALMIC SOLUTION [PF] OD SCH ×2 (08:08→20:18)
[2018-02-02] MEDS: PARoxetine HCL 10 MG TABLET PO SCH (08:08)
[2018-02-02] MEDS: FLUTICASONE/VILANTEROL 200-25 MCG/INH INHALER [14] IH SCH (08:09)
[2018-02-02] MEDS: INSULIN GLARGINE,HUM.REC.ANLOG 100 UNITS/ML SQ SCH (08:16)
[2018-02-02] MEDS: ASCORBIC ACID 500 MG TABLET PO SCH (08:30)
[2018-02-02] MEDS: IPRATROPIUM BROMIDE 0.5 MG/2.5 ML NEB SOLUTION NEB SCH ×4 (09:00→21:40)
[2018-02-02] MEDS: ALBUTEROL SULFATE 2.5 MG/0.5 ML NEB SOLUTION NEB SCH ×4 (09:00→21:40)
[2018-02-02] MEDS ORDERED: MISC MED-CONVERTED FROM AMBULATORY (Umeclidinium Bromide (Incruse Ellipta) 1 INH) PO SCH (09:00)
[2018-02-02] MEDS: CALCIUM OYSTER SHELL 500 MG TABLET PO SCH (09:55)
[2018-02-02] MEDS ORDERED: MAGNESIUM SULFATE 2 GM in DEXTROSE 5%-WATER 50 ML IV PRN (10:45)
[2018-02-02] MEDS ORDERED: MAGNESIUM SULFATE 4 GM/WATER 100 ML IV PRN (10:45)
[2018-02-02 14:58] LABS: GLUCOMETER DEV NAME(LOC) 5N 1P; GLUCOSE,POINT OF CARE 289 MG/DL (70-110)
[2018-02-02] MEDS: DILTIAZEM HCL 30 MG TABLET PO SCH ×3 (15:41→23:25)
[2018-02-02] MEDS: CefTRIAXone SODIUM 2 GM in DEXTROSE 5%-WATER 20 ML IV SCH (15:42)
[2018-02-02] MEDS: RIVAROXABAN 15 MG TABLET PO SCH (18:09)
[2018-02-02] MEDS: ROSUVASTATIN CALCIUM 10 MG TABLET PO SCH (20:19)
[2018-02-02 21:58] LABS: GLUCOMETER DEV NAME(LOC) 5S 1M; GLUCOSE,POINT OF CARE 325 MG/DL (70-110)
[2018-02-02 21:58] LABS: GLUCOMETER DEV NAME(LOC) 5S 1M; GLUCOSE,POINT OF CARE 291 MG/DL (70-110)
[2018-02-03 04:40] VITALS: BP 163/69
[2018-02-03] MEDS: DILTIAZEM HCL 30 MG TABLET PO SCH ×4 (05:53→23:37)
[2018-02-03] MEDS: LEVOTHYROXINE SODIUM 112 MCG TABLET PO SCH (05:53)
[2018-02-03] MEDS: INSULIN LISPRO 100 UNITS/ML SQ PRN ×4 (05:55→20:56)
[2018-02-03] MEDS: POTASSIUM CHLORIDE IV SCH ×2 (06:31→15:40)
[2018-02-03] MEDS: SODIUM CHLORIDE 0.9% IV SCH ×2 (06:31→15:40)
[2018-02-03 07:03] LABS: MAGNESIUM 1.7 mg/dL (1.80-2.40)
[2018-02-03 07:32] LABS: GLUCOMETER DEV NAME(LOC) 5S 1M; GLUCOSE,POINT OF CARE 160 MG/DL (70-110)
[2018-02-03 07:54] VITALS: BP 142/73
[2018-02-03 08:46] LABS: DIGOXIN 1.26 ng/mL (0.90-2.00)
[2018-02-03] MEDS: IPRATROPIUM BROMIDE 0.5 MG/2.5 ML NEB SOLUTION NEB SCH ×4 (08:54→20:06)
[2018-02-03] MEDS: ALBUTEROL SULFATE 2.5 MG/0.5 ML NEB SOLUTION NEB SCH ×4 (08:54→20:06)
[2018-02-03] MEDS: DOCUSATE SODIUM 250 MG CAPSULE PO SCH ×2 (09:00→20:54)
[2018-02-03] MEDS: CHOLECALCIFEROL (VIT D3) 1,000 UNITS TABLET PO SCH (10:17)
[2018-02-03] MEDS: OXYBUTYNIN CHLORIDE 5 MG TABLET PO SCH ×2 (10:17→20:54)
[2018-02-03] MEDS: FERROUS SULFATE 325 MG EC TABLET PO SCH (10:17)
[2018-02-03] MEDS: PARoxetine HCL 10 MG TABLET PO SCH (10:17)
[2018-02-03] MEDS: CARBOXYMETHYLCELLULOSE SODIUM 0.4 ML OPHTHALMIC SOLUTION [PF] OD SCH ×2 (10:18→20:54)
[2018-02-03] MEDS: INSULIN GLARGINE,HUM.REC.ANLOG 100 UNITS/ML SQ SCH (10:19)
[2018-02-03] MEDS: FLUTICASONE/VILANTEROL 200-25 MCG/INH INHALER [14] IH SCH (10:19)
[2018-02-03] MEDS: ESOMEPRAZOLE MAG TRIHYDRATE 20 MG CAPSULE PO SCH (10:37)
[2018-02-03 11:37] VITALS: BP 125/60
[2018-02-03] MEDS: CALCIUM OYSTER SHELL 500 MG TABLET PO SCH (12:31)
[2018-02-03] MEDS: ASCORBIC ACID 500 MG TABLET PO SCH (12:31)
[2018-02-03 14:28] LABS: GLUCOMETER DEV NAME(LOC) 5N 1P; GLUCOSE,POINT OF CARE 176 MG/DL (70-110)
[2018-02-03 14:28] LABS: GLUCOMETER DEV NAME(LOC) 5N 1P; GLUCOSE,POINT OF CARE 190 MG/DL (70-110)
[2018-02-03 16:04] VITALS: BP 130/82
[2018-02-03] MEDS: CefTRIAXone SODIUM 2 GM in DEXTROSE 5%-WATER 20 ML IV SCH (16:49)
[2018-02-03] MEDS: RIVAROXABAN 15 MG TABLET PO SCH (18:18)
[2018-02-03] MEDS: MAGNESIUM OXIDE 400 MG TABLET PO PRN ×3 (18:36→23:37)
[2018-02-03 20:25] VITALS: BP 114/79
[2018-02-03] MEDS: ROSUVASTATIN CALCIUM 10 MG TABLET PO SCH (20:54)
[2018-02-03 23:03] LABS: GLUCOMETER DEV NAME(LOC) 5N 1P; GLUCOSE,POINT OF CARE 168 MG/DL (70-110)
[2018-02-03 23:03] LABS: GLUCOMETER DEV NAME(LOC) 5N 1P; GLUCOSE,POINT OF CARE 151 MG/DL (70-110)
[2018-02-04 00:07] VITALS: BP 146/64
[2018-02-04] MEDS: POTASSIUM CHLORIDE IV SCH ×2 (03:59→14:44)
[2018-02-04] MEDS: SODIUM CHLORIDE 0.9% IV SCH ×2 (03:59→14:44)
[2018-02-04 05:38] VITALS: BP 136/74
[2018-02-04] MEDS: LEVOTHYROXINE SODIUM 112 MCG TABLET PO SCH (05:41)
[2018-02-04] MEDS: DILTIAZEM HCL 30 MG TABLET PO SCH ×2 (05:42→11:32)
[2018-02-04 07:28] VITALS: BP 108/47
[2018-02-04] MEDS: ALBUTEROL SULFATE 2.5 MG/0.5 ML NEB SOLUTION NEB SCH ×3 (08:34→15:07)
[2018-02-04] MEDS: IPRATROPIUM BROMIDE 0.5 MG/2.5 ML NEB SOLUTION NEB SCH ×3 (08:34→15:07)
[2018-02-04] MEDS: OXYBUTYNIN CHLORIDE 5 MG TABLET PO SCH (09:56)
[2018-02-04] MEDS: DOCUSATE SODIUM 250 MG CAPSULE PO SCH (09:56)
[2018-02-04] MEDS: ASCORBIC ACID 500 MG TABLET PO SCH (09:56)
[2018-02-04] MEDS: CALCIUM OYSTER SHELL 500 MG TABLET PO SCH (09:56)
[2018-02-04] MEDS: CHOLECALCIFEROL (VIT D3) 1,000 UNITS TABLET PO SCH (09:56)
[2018-02-04] MEDS: ESOMEPRAZOLE MAG TRIHYDRATE 20 MG CAPSULE PO SCH (09:56)
[2018-02-04] MEDS: FLUTICASONE/VILANTEROL 200-25 MCG/INH INHALER [14] IH SCH (09:57)
[2018-02-04] MEDS: CARBOXYMETHYLCELLULOSE SODIUM 0.4 ML OPHTHALMIC SOLUTION [PF] OD SCH (09:57)
[2018-02-04] MEDS: PARoxetine HCL 10 MG TABLET PO SCH (09:57)
[2018-02-04] MEDS: FERROUS SULFATE 325 MG EC TABLET PO SCH (09:57)
[2018-02-04] MEDS: INSULIN GLARGINE,HUM.REC.ANLOG 100 UNITS/ML SQ SCH (10:04)
[2018-02-04] MEDS: MAGNESIUM OXIDE 400 MG TABLET PO PRN (11:27)
[2018-02-04] MEDS: INSULIN LISPRO 100 UNITS/ML SQ PRN (11:37)
[2018-02-04 11:51] VITALS: BP 121/68
[2018-02-04 15:36] VITALS: BP 155/73
[2018-02-04] MEDS: CefTRIAXone SODIUM 2 GM in DEXTROSE 5%-WATER 20 ML IV SCH (16:00)
[2018-02-04 16:39] LABS: GLUCOMETER DEV NAME(LOC) 5N 1P; GLUCOSE,POINT OF CARE 141 MG/DL (70-110)
[2018-02-04 16:39] LABS: GLUCOMETER DEV NAME(LOC) 5N 1P; GLUCOSE,POINT OF CARE 90 MG/DL (70-110)
[2018-02-04 16:39] LABS: GLUCOMETER DEV NAME(LOC) 5N 1P; GLUCOSE,POINT OF CARE 145 MG/DL (70-110)
[2018-02-04] MEDS ORDERED: CEFU250T58 PO (17:51)
[2018-02-05 15:08] LABS: GLUCOMETER DEV NAME(LOC) 5S 1M; GLUCOSE,POINT OF CARE 106 MG/DL (70-110)
== END 2018-02-04 16:30 | disposition home or self-care (01) | DRG 871 ==
LOC: EMS 12:46 → 6N 16:00 → UNDOADMIN 16:00 → 5S 16:00
PROVIDERS: ADMIT Internal Medicine; ATTEND Internal Medicine
DX: A41.9 Sepsis, unspecified organism (principal); G93.40 Encephalopathy, unspecified; E11.51 Type 2 diabetes mellitus with diabetic peripheral angiopathy without gangrene; I11.0 Hypertensive heart disease with heart failure; E86.0 Dehydration; I48.2 Chronic atrial fibrillation; I50.32 Chronic diastolic (congestive) heart failure; J44.9 Chronic obstructive pulmonary disease, unspecified; E03.9 Hypothyroidism, unspecified; E78.00 Pure hypercholesterolemia, unspecified; N39.0 Urinary tract infection, site not specified; K59.00 Constipation, unspecified; Z66 Do not resuscitate; T46.0X5A Adverse effect of cardiac-stimulant glycosides and drugs of similar action, initial encounter; Z85.038 Personal history of other malignant neoplasm of large intestine; Z87.891 Personal history of nicotine dependence; Z79.899 Other long term (current) drug therapy; Z90.49 Acquired absence of other specified parts of digestive tract; Y92.89 Other specified places as the place of occurrence of the external cause
CPT/HCPCS: 51702; 70450; 82962; 83735; 84100; 84439; 84443; 87040; 87086; 92610; 93005; 94640; 96361; 96365; 97162; 97165; 97530; 97535; 99285; J0696; J1815; J3475; J3480; J7030; J7060

== ENCOUNTER 2018-02-08 15:44 | Inpatient (IN) | payer MEDICARE, OTHER ==
[~2018-02-08] VITALS: Ht 165.1 cm; Wt 75.0 kg
[~2018-02-08 15:44] MED LIST changes: +CEFU250T58 PO; -DIGO-44 PO
[2018-02-08] MEDS ORDERED: DIGO-44 PO (16:04)
[2018-02-08 16:12] LABS: GLUCOSE,POINT OF CARE 190 MG/DL (70-110)
[2018-02-08 17:37] LABS: APPEARANCE,URINE CLEAR (CLEAR); BILIRUBIN,URINE NEGATIVE (NEGATIVE); GLUCOSE, URINE (UA) NEGATIVE (NEGATIVE); KETONES,URINE 15 mg/dL (NEGATIVE); LEUKOCYTE ESTERASE ,URINE NEGATIVE (NEGATIVE); NITRATE,URINE NEGATIVE (NEGATIVE); OCCULT BLOOD,URINE SMALL (NEGATIVE); PH,URINE 6.5 (5.0-8.0); PROTEIN,URINE SEE CONFIRM (NEGATIVE); UROBILINOGEN,URINE 0.2 mg/dL (<=1.0)
[2018-02-08 17:48] LABS: SULFOSALICYLIC ACID,URINE 4+ (Negative)
[2018-02-08 17:50] LABS: BACTERIA,URINE Rare /HPF (None Seen); WBC,URINE 0-2 /HPF (0-5)
[2018-02-08 17:51] LABS: BASOPHILS % (AUTO) 0.8 % (0.0-2.0); HEMATOCRIT 39.5 % (36-46); HEMOGLOBIN 12.8 g/dL (12.0-16.0); LYMPHOCYTES # (AUTO) 1.4 K/uL (1.0-4.8); LYMPHOCYTES % (AUTO) 11.1 % (22.0-44.0); MEAN CORPUSCULAR HEMOGLOBIN 25.3 pg (26.0-34.0); MEAN CORPUSCULAR HGB CONC 32.5 G/dL (31.0-37.0); MEAN CORPUSCULAR VOLUME 78 fL (80-100); NEUTROPHILS # (AUTO) 9.9 K/uL (1.8-7.7); NEUTROPHILS % (AUTO) 77.1 % (40.0-70.0); PLATELET COUNT (AUTO) 260 K/uL (150-450); RED BLOOD CELL COUNT(AUTO) 5.07 MIL/uL (4.00-5.20); RED CELL DISTRIBUTION WIDTH 18.7 % (11.5-14.5)
[2018-02-08 17:51] LABS: RBC,URINE 0-2 /HPF (0-2); SQUAMOUS EPITHELIAL CELL,UR Few /LPF (None Seen)
[2018-02-08 18:00] LABS: INR 1.4 (0.9-1.1); PROTHROMBIN TIME 14.9 SEC (9.4-11.6)
[2018-02-08 18:08] LABS: ANION GAP 4 mmol/L (8-16); CALCIUM, TOTAL 8.5 mg/dL (8.8-10.5); CARBON DIOXIDE 34 mmol/L (22-29); CHLORIDE 99 mmol/L (98-107); CREATININE 0.82 mg/dL (0.60-1.30); GLOMERULAR FILTR. RATE CALC > 60 mL/min (>60); GLUCOSE,RANDOM 164 mg/dL (70-110); POTASSIUM 3.2 mmol/L (3.5-5.1); SODIUM SERUM 137 mmol/L (136-145); UREA NITROGEN, BLOOD 15 mg/dL (7-18)
[2018-02-08 18:15] LABS: B-TYPE NATRIURETIC PEPTIDE 782 pg/mL (0-100)
[2018-02-08] MEDS ORDERED: POTASSIUM CHLORIDE 20 MEQ ER TABLET PO ONE (18:30)
[2018-02-08 18:31] LABS: ALANINE AMINOTRANSFERASE 17 U/L (12-78); ALBUMIN 1.8 g/dL (3.4-5.0); ALKALINE PHOSPHATASE 89 U/L (46-116); ASPARTATE AMINOTRANSFERASE 35 U/L (15-37); BILIRUBIN,TOTAL 0.3 mg/dL (0.1-1.0); CREATINE KINASE MB 1.5 ng/mL (0-5); CREATINE KINASE, TOTAL 102 U/L (26-192); DIGOXIN 1.16 ng/mL (0.90-2.00); THYROID STIMULATING HORMONE 10.76 uIU/mL (0.36-3.74)
[2018-02-08 21:08] VITALS: BP 131/67
[2018-02-08] MEDS ORDERED: ONDANSETRON HCL 4 MG TABLET PO PRN (21:45)
[2018-02-08 22:57] LABS: GLUCOMETER DEV NAME(LOC) 5S 1M; GLUCOSE,POINT OF CARE 136 MG/DL (70-110)
[2018-02-08 23:51] VITALS: BP 144/69
[2018-02-09] VITALS (7 sets, daily range): BP systolic 109–156; BP diastolic 46–82
[2018-02-09] MEDS: ALBUTEROL SULFATE 2.5 MG/0.5 ML NEB SOLUTION NEB SCH ×4 (02:00→20:38)
[2018-02-09] MEDS ORDERED: LEVOTHYROXINE SODIUM 112 MCG TABLET PO SCH (06:30)
[2018-02-09 06:45] LABS: ANION GAP 4 mmol/L (8-16); CALCIUM, TOTAL 8.5 mg/dL (8.8-10.5); CARBON DIOXIDE 32 mmol/L (22-29); CHLORIDE 101 mmol/L (98-107); CREATININE 0.73 mg/dL (0.60-1.30); GLOMERULAR FILTR. RATE CALC > 60 mL/min (>60); SODIUM SERUM 137 mmol/L (136-145); UREA NITROGEN, BLOOD 15 mg/dL (7-18)
[2018-02-09 07:06] LABS: GLUCOSE,RANDOM 126 mg/dL (70-110)
[2018-02-09 07:37] LABS: GLUCOMETER DEV NAME(LOC) 5S 2P; GLUCOSE,POINT OF CARE 125 MG/DL (70-110)
[2018-02-09] MEDS ORDERED: 0.9% SODIUM CHLORIDE 5 ML NEB SOLUTION NEB ONE ×3 (07:57→20:37)
[2018-02-09] MEDS: DOCUSATE SODIUM 250 MG CAPSULE PO SCH ×2 (08:06→20:54)
[2018-02-09] MEDS: PredniSONE 5 MG TABLET PO SCH (08:07)
[2018-02-09] MEDS: FLUTICASONE/VILANTEROL 200-25 MCG/INH INHALER [14] IH SCH (08:07)
[2018-02-09] MEDS: FUROSEMIDE 40 MG/4 ML VIAL IVP SCH (08:07)
[2018-02-09] MEDS: CALCIUM OYSTER SHELL 500 MG TABLET PO SCH (08:14)
[2018-02-09] MEDS: FERROUS SULFATE 325 MG EC TABLET PO SCH (08:14)
[2018-02-09] MEDS: CHOLECALCIFEROL (VIT D3) 2,000 UNITS TABLET PO SCH (08:14)
[2018-02-09] MEDS: OXYBUTYNIN CHLORIDE 5 MG TABLET PO SCH ×2 (08:14→20:54)
[2018-02-09] MEDS: ASCORBIC ACID 500 MG TABLET PO SCH (08:14)
[2018-02-09] MEDS: PARoxetine HCL 10 MG TABLET PO SCH (08:14)
[2018-02-09] MEDS ORDERED: DILTIAZEM HCL CD 120 MG ER CAPSULE PO SCH (09:00)
[2018-02-09] MEDS ORDERED: FUROSEMIDE 20 MG TABLET PO SCH (09:00)
[2018-02-09] MEDS ORDERED: MISC MED-CONVERTED FROM AMBULATORY (Umeclidinium Bromide (Incruse Ellipta) 1 INH) PO SCH (09:00)
[2018-02-09] MEDS ORDERED: DEXTROSE 50%-WATER 25 GM/50 ML SYRINGE IVP PRN (09:30)
[2018-02-09] MEDS: LISINOPRIL 20 MG TABLET PO SCH (10:14)
[2018-02-09] MEDS: INSULIN LISPRO 100 UNITS/ML SQ PRN ×3 (12:16→20:57)
[2018-02-09] MEDS: RIVAROXABAN 15 MG TABLET PO SCH (18:19)
[2018-02-09] MEDS: ROSUVASTATIN CALCIUM 10 MG TABLET PO SCH (20:54)
[2018-02-09 22:32] LABS: GLUCOMETER DEV NAME(LOC) 5S 2P; GLUCOSE,POINT OF CARE 180 MG/DL (70-110)
[2018-02-09 22:32] LABS: GLUCOMETER DEV NAME(LOC) 5S 2P; GLUCOSE,POINT OF CARE 209 MG/DL (70-110)
[2018-02-09 22:32] LABS: GLUCOMETER DEV NAME(LOC) 5S 2P; GLUCOSE,POINT OF CARE 147 MG/DL (70-110)
[2018-02-10] MEDS ORDERED: 0.9% SODIUM CHLORIDE 5 ML NEB SOLUTION NEB ONE ×4 (02:32→18:50)
[2018-02-10] MEDS: ALBUTEROL SULFATE 2.5 MG/0.5 ML NEB SOLUTION NEB SCH ×4 (02:33→19:06)
[2018-02-10 06:07] VITALS: BP 152/74
[2018-02-10] MEDS: INSULIN LISPRO 100 UNITS/ML SQ PRN ×4 (06:14→20:07)
[2018-02-10] MEDS: LEVOTHYROXINE SODIUM 125 MCG TABLET PO SCH (06:15)
[2018-02-10 06:56] LABS: BASOPHILS % (AUTO) 0.5 % (0.0-2.0); EOSINOPHILS % (AUTO) 2.5 % (1.0-6.0); HEMATOCRIT 37.3 % (36-46); HEMOGLOBIN 12.1 g/dL (12.0-16.0); LYMPHOCYTES # (AUTO) 1.9 K/uL (1.0-4.8); LYMPHOCYTES % (AUTO) 13.9 % (22.0-44.0); MEAN CORPUSCULAR HEMOGLOBIN 25.4 pg (26.0-34.0); MEAN CORPUSCULAR HGB CONC 32.5 G/dL (31.0-37.0); MEAN CORPUSCULAR VOLUME 78 fL (80-100); MONOCYTES % (AUTO) 7.3 % (2.0-9.0); NEUTROPHILS # (AUTO) 10.1 K/uL (1.8-7.7); NEUTROPHILS % (AUTO) 75.8 % (40.0-70.0); PLATELET COUNT (AUTO) 269 K/uL (150-450); RED BLOOD CELL COUNT(AUTO) 4.76 MIL/uL (4.00-5.20); RED CELL DISTRIBUTION WIDTH 19.1 % (11.5-14.5)
[2018-02-10 07:01] VITALS: BP 151/74
[2018-02-10 07:34] LABS: ALANINE AMINOTRANSFERASE 19 U/L (12-78); ALBUMIN 1.9 g/dL (3.4-5.0); ALKALINE PHOSPHATASE 86 U/L (46-116); ANION GAP 6 mmol/L (8-16); ASPARTATE AMINOTRANSFERASE 34 U/L (15-37); BILIRUBIN,TOTAL 0.3 mg/dL (0.1-1.0); CALCIUM, TOTAL 8.9 mg/dL (8.8-10.5); CARBON DIOXIDE 32 mmol/L (22-29); CHLORIDE 99 mmol/L (98-107); CREATININE 0.81 mg/dL (0.60-1.30); GLOMERULAR FILTR. RATE CALC > 60 mL/min (>60); GLUCOSE,RANDOM 115 mg/dL (70-110); POTASSIUM 3.2 mmol/L (3.5-5.1); SODIUM SERUM 137 mmol/L (136-145); TOTAL PROTEIN, SERUM 7.1 g/dL (6.4-8.2); UREA NITROGEN, BLOOD 14 mg/dL (7-18)
[2018-02-10] MEDS ORDERED: POTASSIUM CHLORIDE 20 MEQ ER TABLET PO PRN (08:15)
[2018-02-10] MEDS ORDERED: POTASSIUM CHL 10 MEQ/WATER 50 ML IV PRN (08:15)
[2018-02-10] MEDS: CHOLECALCIFEROL (VIT D3) 2,000 UNITS TABLET PO SCH (08:53)
[2018-02-10] MEDS: FERROUS SULFATE 325 MG EC TABLET PO SCH (08:53)
[2018-02-10] MEDS: PARoxetine HCL 10 MG TABLET PO SCH (08:53)
[2018-02-10] MEDS: CALCIUM OYSTER SHELL 500 MG TABLET PO SCH (08:53)
[2018-02-10] MEDS: ASCORBIC ACID 500 MG TABLET PO SCH (08:53)
[2018-02-10] MEDS: LISINOPRIL 20 MG TABLET PO SCH (08:53)
[2018-02-10] MEDS: OXYBUTYNIN CHLORIDE 5 MG TABLET PO SCH ×2 (08:56→20:03)
[2018-02-10] MEDS: PredniSONE 5 MG TABLET PO SCH (08:57)
[2018-02-10] MEDS: DOCUSATE SODIUM 250 MG CAPSULE PO SCH ×2 (08:57→20:04)
[2018-02-10] MEDS: FUROSEMIDE 40 MG/4 ML VIAL IVP SCH (08:57)
[2018-02-10] MEDS: FLUTICASONE/VILANTEROL 200-25 MCG/INH INHALER [14] IH SCH (08:58)
[2018-02-10] MEDS: DILTIAZEM HCL CD 180 MG ER CAPSULE PO SCH (11:43)
[2018-02-10 11:44] VITALS: BP 151/73
[2018-02-10 16:02] LABS: GLUCOMETER DEV NAME(LOC) 5N 1P; GLUCOSE,POINT OF CARE 127 MG/DL (70-110)
[2018-02-10 16:11] VITALS: BP 149/68
[2018-02-10] MEDS: RIVAROXABAN 15 MG TABLET PO SCH (18:21)
[2018-02-10 19:45] VITALS: BP 119/54
[2018-02-10] MEDS: ROSUVASTATIN CALCIUM 10 MG TABLET PO SCH (20:03)
[2018-02-10 21:48] LABS: GLUCOMETER DEV NAME(LOC) 5S 1M; GLUCOSE,POINT OF CARE 201 MG/DL (70-110)
[2018-02-10 21:48] LABS: GLUCOMETER DEV NAME(LOC) 5S 1M; GLUCOSE,POINT OF CARE 190 MG/DL (70-110)
[2018-02-10 21:48] LABS: GLUCOMETER DEV NAME(LOC) 5S 1M; GLUCOSE,POINT OF CARE 209 MG/DL (70-110)
[2018-02-10 23:51] VITALS: BP 125/64
[2018-02-11] MEDS ORDERED: 0.9% SODIUM CHLORIDE 5 ML NEB SOLUTION NEB ONE ×4 (02:26→19:02)
[2018-02-11] MEDS: ALBUTEROL SULFATE 2.5 MG/0.5 ML NEB SOLUTION NEB SCH ×4 (02:38→19:07)
[2018-02-11 04:08] VITALS: BP 146/71
[2018-02-11] MEDS: LEVOTHYROXINE SODIUM 125 MCG TABLET PO SCH (05:45)
[2018-02-11] MEDS ORDERED: DEXTROSE 50%-WATER 25 GM/50 ML SYRINGE IVP PRN (07:00)
[2018-02-11] MEDS ORDERED: INSULIN LISPRO 100 UNITS/ML SQ PRN (07:00)
[2018-02-11 07:17] LABS: GLUCOMETER DEV NAME(LOC) 5S 2P; GLUCOSE,POINT OF CARE 127 MG/DL (70-110)
[2018-02-11 07:35] VITALS: BP 157/62
[2018-02-11] MEDS ORDERED: VANCOMYCIN HCL 1.5 GM in DEXTROSE 5%-WATER 250 ML IV ONE (08:00)
[2018-02-11] MEDS ORDERED: SODIUM CHLORIDE 0.9% 250 ML IV ONE (08:39)
[2018-02-11] MEDS: VANCOMYCIN HCL 1 GM/D5% WATER 200 ML IV SCH ×2 (08:51→19:45)
[2018-02-11] MEDS: FUROSEMIDE 40 MG/4 ML VIAL IVP SCH (08:51)
[2018-02-11] MEDS: DOCUSATE SODIUM 250 MG CAPSULE PO SCH ×2 (10:04→19:45)
[2018-02-11] MEDS: CALCIUM OYSTER SHELL 500 MG TABLET PO SCH (10:04)
[2018-02-11] MEDS: FERROUS SULFATE 325 MG EC TABLET PO SCH (10:04)
[2018-02-11] MEDS: LISINOPRIL 20 MG TABLET PO SCH (10:04)
[2018-02-11] MEDS: OXYBUTYNIN CHLORIDE 5 MG TABLET PO SCH (10:04)
[2018-02-11] MEDS: PredniSONE 5 MG TABLET PO SCH (10:05)
[2018-02-11] MEDS: ASCORBIC ACID 500 MG TABLET PO SCH (10:05)
[2018-02-11] MEDS: DILTIAZEM HCL CD 180 MG ER CAPSULE PO SCH (10:05)
[2018-02-11] MEDS: FLUTICASONE/VILANTEROL 200-25 MCG/INH INHALER [14] IH SCH (10:05)
[2018-02-11] MEDS: PARoxetine HCL 10 MG TABLET PO SCH (10:05)
[2018-02-11] MEDS: CHOLECALCIFEROL (VIT D3) 2,000 UNITS TABLET PO SCH (10:05)
[2018-02-11 11:47] VITALS: BP 158/70
[2018-02-11 15:47] VITALS: BP 145/54
[2018-02-11] MEDS: RIVAROXABAN 15 MG TABLET PO SCH (17:51)
[2018-02-11] MEDS: INSULIN LISPRO 100 UNITS/ML SQ PRN ×2 (17:57→20:00)
[2018-02-11 19:04] LABS: GLUCOMETER DEV NAME(LOC) 5S 2P; GLUCOSE,POINT OF CARE 147 MG/DL (70-110)
[2018-02-11 19:04] LABS: GLUCOMETER DEV NAME(LOC) 5S 2P; GLUCOSE,POINT OF CARE 279 MG/DL (70-110)
[2018-02-11] MEDS: ROSUVASTATIN CALCIUM 10 MG TABLET PO SCH (19:46)
[2018-02-11 20:18] VITALS: BP 148/58
[2018-02-11] MEDS ORDERED: INSULIN GLARGINE,HUM.REC.ANLOG 100 UNITS/ML SQ SCH (21:00)
[2018-02-12 00:17] VITALS: BP 154/62
[2018-02-12] MEDS ORDERED: 0.9% SODIUM CHLORIDE 5 ML NEB SOLUTION NEB ONE ×2 (01:48→09:07)
[2018-02-12] MEDS: ALBUTEROL SULFATE 2.5 MG/0.5 ML NEB SOLUTION NEB SCH ×2 (01:52→09:08)
[2018-02-12 05:06] VITALS: BP 158/67
[2018-02-12 05:55] LABS: BASOPHILS % (AUTO) 0.6 % (0.0-2.0); EOSINOPHILS % (AUTO) 2.9 % (1.0-6.0); HEMATOCRIT 35.6 % (36-46); LYMPHOCYTES # (AUTO) 1.7 K/uL (1.0-4.8); LYMPHOCYTES % (AUTO) 13.7 % (22.0-44.0); MEAN CORPUSCULAR HEMOGLOBIN 26.1 pg (26.0-34.0); MEAN CORPUSCULAR HGB CONC 33.7 G/dL (31.0-37.0); MEAN CORPUSCULAR VOLUME 77 fL (80-100); MONOCYTES # (AUTO) 0.7 K/uL (0.1-1.0); MONOCYTES % (AUTO) 5.6 % (2.0-9.0); NEUTROPHILS # (AUTO) 9.9 K/uL (1.8-7.7); NEUTROPHILS % (AUTO) 77.2 % (40.0-70.0); PLATELET COUNT (AUTO) 265 K/uL (150-450); RED BLOOD CELL COUNT(AUTO) 4.59 MIL/uL (4.00-5.20); RED CELL DISTRIBUTION WIDTH 18.7 % (11.5-14.5)
[2018-02-12 06:02] LABS: ANION GAP 1 mmol/L (8-16); CALCIUM, TOTAL 9.2 mg/dL (8.8-10.5); CARBON DIOXIDE 34 mmol/L (22-29); CHLORIDE 100 mmol/L (98-107); CREATININE 0.84 mg/dL (0.60-1.30); GLOMERULAR FILTR. RATE CALC > 60 mL/min (>60); GLUCOSE,RANDOM 118 mg/dL (70-110); POTASSIUM 3.6 mmol/L (3.5-5.1); SODIUM SERUM 135 mmol/L (136-145); UREA NITROGEN, BLOOD 11 mg/dL (7-18)
[2018-02-12] MEDS: LEVOTHYROXINE SODIUM 125 MCG TABLET PO SCH (06:10)
[2018-02-12 07:56] VITALS: BP 120/73
[2018-02-12] MEDS: VANCOMYCIN HCL 1 GM/D5% WATER 200 ML IV SCH (08:12)
[2018-02-12] MEDS: FERROUS SULFATE 325 MG EC TABLET PO SCH (08:50)
[2018-02-12] MEDS: FLUTICASONE/VILANTEROL 200-25 MCG/INH INHALER [14] IH SCH (08:50)
[2018-02-12] MEDS: FUROSEMIDE 40 MG/4 ML VIAL IVP SCH (08:52)
[2018-02-12] MEDS: DOCUSATE SODIUM 250 MG CAPSULE PO SCH (08:53)
[2018-02-12] MEDS: PredniSONE 5 MG TABLET PO SCH (08:53)
[2018-02-12] MEDS: PARoxetine HCL 10 MG TABLET PO SCH (08:54)
[2018-02-12] MEDS: CALCIUM OYSTER SHELL 500 MG TABLET PO SCH (08:54)
[2018-02-12] MEDS: CHOLECALCIFEROL (VIT D3) 2,000 UNITS TABLET PO SCH (08:55)
[2018-02-12] MEDS: ASCORBIC ACID 500 MG TABLET PO SCH (08:55)
[2018-02-12 09:00] VITALS: BP 149/67
[2018-02-12] MEDS: LISINOPRIL 20 MG TABLET PO SCH (09:00)
[2018-02-12 11:27] VITALS: BP 161/75
[2018-02-12 11:52] LABS: GLUCOMETER DEV NAME(LOC) 5S 1M; GLUCOSE,POINT OF CARE 247 MG/DL (70-110)
[2018-02-12 11:53] LABS: GLUCOMETER DEV NAME(LOC) 5S 1M; GLUCOSE,POINT OF CARE 121 MG/DL (70-110)
[2018-02-12 11:53] LABS: GLUCOMETER DEV NAME(LOC) 5S 1M; GLUCOSE,POINT OF CARE 155 MG/DL (70-110)
[2018-02-12] MEDS: INSULIN LISPRO 100 UNITS/ML SQ PRN (11:55)
[2018-02-12] MEDS ORDERED: SLOWK8 PO (14:57)
== END 2018-02-12 15:25 | disposition home health service (06) | DRG 291 ==
LOC: EMS 15:45 → 5S 20:25 → 5N 02-10 10:40
PROVIDERS: ADMIT Hospitalist; ATTEND Hospitalist
DX: I11.0 Hypertensive heart disease with heart failure (principal); E43 Unspecified severe protein-calorie malnutrition; I27.20 Pulmonary hypertension, unspecified; I48.2 Chronic atrial fibrillation; I07.1 Rheumatic tricuspid insufficiency; I49.5 Sick sinus syndrome; Z99.81 Dependence on supplemental oxygen; E11.9 Type 2 diabetes mellitus without complications; D72.829 Elevated white blood cell count, unspecified; N39.0 Urinary tract infection, site not specified; I50.33 Acute on chronic diastolic (congestive) heart failure; J44.9 Chronic obstructive pulmonary disease, unspecified; E03.9 Hypothyroidism, unspecified; F32.9 Major depressive disorder, single episode, unspecified; E78.00 Pure hypercholesterolemia, unspecified; E55.9 Vitamin D deficiency, unspecified; I20.8 Other forms of angina pectoris; M47.814 Spondylosis without myelopathy or radiculopathy, thoracic region; I70.0 Atherosclerosis of aorta; E78.5 Hyperlipidemia, unspecified; E87.6 Hypokalemia; N63.0 Unspecified lump in unspecified breast; F17.210 Nicotine dependence, cigarettes, uncomplicated; Z66 Do not resuscitate; Z90.49 Acquired absence of other specified parts of digestive tract; Z79.899 Other long term (current) drug therapy; Z79.4 Long term (current) use of insulin; Z79.01 Long term (current) use of anticoagulants; Z74.01 Bed confinement status; Z85.038 Personal history of other malignant neoplasm of large intestine; Z68.27 Body mass index [BMI] 27.0-27.9, adult
CPT/HCPCS: 51701; 83605; 83735; 84132; 84443; 87040; 87081; 87205; 93005; 93306; 94640; 97161; 97166; 97530; 97535; 99285; J1815; J1940; J3370; J7050; J7060

== ENCOUNTER → 2018-04-14 | Outpatient (CLI) | payer MEDICARE, OTHER ==
[~2018-04-14] MED LIST changes: +BUDE10.2 IH; -CEFU250T58 PO; +CIPR-278 PO; +CRAN500C5 PO; +INSU100I26 SQ; -INSU3INS3 SQ; +OMEP20 PO; -OXYB5 PO; +OXYB5XL PO; +SLOWK8 PO; -UMEC62.5 PO; +VIT1CAPS21 PO
[2018-04-14 11:58] LABS: GLUCOMETER DEV NAME(LOC) SHC; GLUCOSE,POINT OF CARE 295 MG/DL (70-110)
[2018-04-14 12:09] VITALS: BP 165/92
== END | disposition home or self-care (01) ==
LOC: SRCNTR 10:58
PROVIDERS: ATTEND Hospitalist
DX: E11.65 Type 2 diabetes mellitus with hyperglycemia (principal); R10.9 Unspecified abdominal pain; E11.40 Type 2 diabetes mellitus with diabetic neuropathy, unspecified; I48.91 Unspecified atrial fibrillation; J44.9 Chronic obstructive pulmonary disease, unspecified; I11.0 Hypertensive heart disease with heart failure; I50.9 Heart failure, unspecified; N63.10 Unspecified lump in the right breast, unspecified quadrant; E04.1 Nontoxic single thyroid nodule; E11.51 Type 2 diabetes mellitus with diabetic peripheral angiopathy without gangrene; Z99.81 Dependence on supplemental oxygen; R91.8 Other nonspecific abnormal finding of lung field; Z85.038 Personal history of other malignant neoplasm of large intestine; Z87.81 Personal history of (healed) traumatic fracture; E03.9 Hypothyroidism, unspecified
CPT/HCPCS: 82962 ×2; G0463

== ENCOUNTER → 2018-04-30 | Outpatient (CLI) | payer MEDICARE, OTHER ==
[~2018-04-30] MED LIST changes: -BUDE10.2 IH; -CIPR-278 PO; -CRAN500C5 PO; -FERR-89 PO; -INSU100I26 SQ; -OMEP20 PO; -ONDA4 PO; -OXYB5XL PO; -PARO10TA89 PO; -VIT1CAPS21 PO
[2018-04-30 11:35] VITALS: BP 112/63
== END | disposition home or self-care (01) ==
LOC: SRCNTR 11:23
PROVIDERS: ATTEND Internal Medicine Critical Care Medicine
DX: G47.33 Obstructive sleep apnea (adult) (pediatric) (principal); I10 Essential (primary) hypertension; J44.1 Chronic obstructive pulmonary disease with (acute) exacerbation; J96.10 Chronic respiratory failure, unspecified whether with hypoxia or hypercapnia; E11.9 Type 2 diabetes mellitus without complications; E03.9 Hypothyroidism, unspecified; C18.9 Malignant neoplasm of colon, unspecified; E66.01 Morbid (severe) obesity due to excess calories
CPT/HCPCS: G0463

== ENCOUNTER → 2018-06-26 | Outpatient (CLI) | payer MEDICARE, OTHER ==
[~2018-06-26] VITALS: Ht 160 cm; Wt 77.0 kg
[~2018-06-26] MED LIST changes: +ALBO180CR TP; +BUDE10.2 IH; +CIPR-278 PO; +CRAN500C5 PO; +DILT120C88 PO; +DILT240C96 PO; +ESOM40CA PO; +FERR-89 PO; +INSLAN SQ; +INSNOV SQ; +INSU100I26 SQ; +INSU100V SQ; +IPRA3AMP24 NEB; +LATA2.5D2 OU; +LEVO150 PO; +MIRALAX PO; +OMEP20 PO; +ONDA4 PO; +OS500 PO; +OXYB5XL PO; +PARO10TA89 PO; +TAMS0.4C32 PO; +VIT1CAPS21 PO; +[UNRECOGNIZED DRUG - CODE] PO
[2018-06-26 12:36] VITALS: BP 145/82
[2018-06-26 13:54] LABS: GLUCOMETER DEV NAME(LOC) SHC; GLUCOSE,POINT OF CARE 160 MG/DL (70-110)
== END | disposition home or self-care (01) ==
LOC: SRCNTR 12:02
PROVIDERS: ATTEND Hospitalist
DX: J44.9 Chronic obstructive pulmonary disease, unspecified (principal); E78.5 Hyperlipidemia, unspecified; E11.51 Type 2 diabetes mellitus with diabetic peripheral angiopathy without gangrene; E11.40 Type 2 diabetes mellitus with diabetic neuropathy, unspecified; I48.91 Unspecified atrial fibrillation; I49.9 Cardiac arrhythmia, unspecified; N63.10 Unspecified lump in the right breast, unspecified quadrant; E04.1 Nontoxic single thyroid nodule; I10 Essential (primary) hypertension; Z85.038 Personal history of other malignant neoplasm of large intestine; Z87.81 Personal history of (healed) traumatic fracture
CPT/HCPCS: 82962 ×2; G0463

== ENCOUNTER 2018-07-22 17:41 | Inpatient (IN) | payer MEDICARE, OTHER ==
[~2018-07-22] VITALS: Ht 162.6 cm; Wt 76.2 kg
[~2018-07-22 17:41] MED LIST changes: -ALBO180CR TP; -CARB15DR94 OD; -CIPR-278 PO; -DILT120C88 PO; -DILT240C96 PO; -ESOM20CA31 PO; -ESOM40CA PO; -FLUT1BLS IH; -INSLAN SQ; -INSNOV SQ; -INSU100V SQ; -LATA2.5D2 OU; -LEVO150 PO; -MIRALAX PO; -OS500 PO; -PARO10TA89 PO; -PRED5 PO; -ROSU10 PO; -TAMS0.4C32 PO
[2018-07-22 18:00] VITALS: BP 120/55
[2018-07-22] MEDS ORDERED: ACETAMINOPHEN 325 MG TABLET PO PRN ×2 (19:30)
[2018-07-22] MEDS ORDERED: DOCUSATE SODIUM 283 MG/5 ML MINI-ENEMA PR PRN (19:30)
[2018-07-22] MEDS ORDERED: ALBUTEROL SULFATE HFA 90 MCG/PUFF 8 GM INHALER IH PRN (19:30)
[2018-07-22] MEDS ORDERED: ONDANSETRON HCL 4 MG TABLET PO PRN (19:30)
[2018-07-22] MEDS ORDERED: PNEUMOCOCCAL VACCINE POLYVALENT 0.5 ML VIAL [PPSV23] IM ONE (19:30)
[2018-07-22] MEDS ORDERED: ALBUTEROL SULFATE 2.5 MG/0.5 ML NEB SOLUTION NEB PRN (20:15)
[2018-07-22] MEDS ORDERED: 0.9% SODIUM CHLORIDE 5 ML NEB SOLUTION NEB ONE (20:28)
[2018-07-22] MEDS: ALBUTEROL SULFATE 2.5 MG/0.5 ML NEB SOLUTION NEB SCH (20:30)
[2018-07-22] MEDS: BUDESONIDE/FORMOTEROL FUMARATE 160-4.5 MCG/PUFF 6.9 GM INHALER IH SCH (21:00)
[2018-07-22] MEDS: ERYTHROMYCIN E SUCC 200 MG/5 ML PO SCH (21:11)
[2018-07-22] MEDS: OXYBUTYNIN CHLORIDE 5 MG TABLET PO SCH (21:11)
[2018-07-22] MEDS: SENNA 187 MG TABLET PO SCH (21:12)
[2018-07-22] MEDS: DOCUSATE SODIUM 250 MG CAPSULE PO SCH (21:14)
[2018-07-22] MEDS: OXYGEN THERAPY IH SCH (21:16)
[2018-07-22 21:49] LABS: GLUCOMETER DEV NAME(LOC) 2WR 2E; GLUCOSE,POINT OF CARE 100 MG/DL (70-110)
[2018-07-22] MEDS: 0.9% SODIUM CHLORIDE 10 ML SYRINGE IVP SCH (23:24)
[2018-07-22 23:58] VITALS: BP 138/63
[2018-07-23] MEDS: LEVOTHYROXINE SODIUM 150 MCG TABLET PO SCH (05:53)
[2018-07-23 06:35] LABS: GLUCOMETER DEV NAME(LOC) 2WR 2E; GLUCOSE,POINT OF CARE 41 MG/DL (70-110)
[2018-07-23 06:35] LABS: GLUCOMETER DEV NAME(LOC) 2WR 2E; GLUCOSE,POINT OF CARE 37 MG/DL (70-110)
[2018-07-23 06:39] LABS: GLUCOMETER DEV NAME(LOC) 2WR 2E; GLUCOSE,POINT OF CARE 51 MG/DL (70-110)
[2018-07-23 07:04] LABS: GLUCOMETER DEV NAME(LOC) 2WR 1C; GLUCOSE,POINT OF CARE 101 MG/DL (70-110)
[2018-07-23 07:12] LABS: ALANINE AMINOTRANSFERASE 33 U/L (12-78); ALBUMIN 2.4 g/dL (3.4-5.0); ALKALINE PHOSPHATASE 98 U/L (46-116); ANION GAP 3 mmol/L (8-16); ASPARTATE AMINOTRANSFERASE 54 U/L (15-37); BILIRUBIN,TOTAL 0.5 mg/dL (0.1-1.0); CALCIUM, TOTAL 9.2 mg/dL (8.8-10.5); CARBON DIOXIDE 33 mmol/L (22-29); CHLORIDE 102 mmol/L (98-107); CREATININE 0.76 mg/dL (0.60-1.30); POTASSIUM 4.4 mmol/L (3.5-5.1); SODIUM SERUM 138 mmol/L (136-145); TOTAL PROTEIN, SERUM 8.6 g/dL (6.4-8.2); UREA NITROGEN, BLOOD 13 mg/dL (7-18)
[2018-07-23 07:13] LABS: EOSINOPHILS % (AUTO) 1.7 % (1.0-6.0); HEMATOCRIT 41.5 % (36-46); LYMPHOCYTES # (AUTO) 1.5 K/uL (1.0-4.8); LYMPHOCYTES % (AUTO) 9.7 % (22.0-44.0); MEAN CORPUSCULAR HEMOGLOBIN 28.1 pg (26.0-34.0); MEAN CORPUSCULAR HGB CONC 33.7 G/dL (31.0-37.0); MEAN CORPUSCULAR VOLUME 83 fL (80-100); MONOCYTES # (AUTO) 0.7 K/uL (0.1-1.0); MONOCYTES % (AUTO) 4.8 % (2.0-9.0); NEUTROPHILS # (AUTO) 12.6 K/uL (1.8-7.7); NEUTROPHILS % (AUTO) 82.8 % (40.0-70.0); PLATELET COUNT (AUTO) 337 K/uL (150-450); RED BLOOD CELL COUNT(AUTO) 4.99 MIL/uL (4.00-5.20); RED CELL DISTRIBUTION WIDTH 15.5 % (11.5-14.5)
[2018-07-23 07:20] LABS: GLOMERULAR FILTR. RATE CALC > 60 mL/min (>60); GLUCOSE,RANDOM 46 mg/dL (70-110)
[2018-07-23] MEDS ORDERED: FUROSEMIDE 40 MG TABLET PO SCH (09:00)
[2018-07-23] MEDS ORDERED: INSULIN GLARGINE,HUM.REC.ANLOG 100 UNITS/ML SQ SCH (09:00)
[2018-07-23] MEDS: OXYGEN THERAPY IH SCH ×2 (09:24→20:11)
[2018-07-23] MEDS: ALBUTEROL SULFATE 2.5 MG/0.5 ML NEB SOLUTION NEB SCH ×4 (09:24→21:01)
[2018-07-23] MEDS: IPRATROPIUM BROMIDE 0.5 MG/2.5 ML NEB SOLUTION NEB PRN ×4 (09:24→21:01)
[2018-07-23 09:45] VITALS: BP 101/47
[2018-07-23 10:00] VITALS: BP 157/72
[2018-07-23 10:01] VITALS: BP 138/65
[2018-07-23] MEDS: OXYBUTYNIN CHLORIDE 5 MG TABLET PO SCH ×2 (10:13→20:12)
[2018-07-23] MEDS: LISINOPRIL 20 MG TABLET PO SCH (10:14)
[2018-07-23] MEDS: DILTIAZEM HCL CD 240 MG ER CAPSULE PO SCH (10:14)
[2018-07-23] MEDS: DOCUSATE SODIUM 250 MG CAPSULE PO SCH ×2 (10:15→20:12)
[2018-07-23] MEDS: CHOLECALCIFEROL (VIT D3) 1,000 UNITS TABLET PO SCH (10:15)
[2018-07-23] MEDS: VIT A,C & E/LUTEIN/MINERALS TABLET PO SCH (10:16)
[2018-07-23] MEDS: POTASSIUM CHLORIDE 8 MEQ ER TABLET PO SCH (10:16)
[2018-07-23] MEDS: ASCORBIC ACID 500 MG TABLET PO SCH (10:16)
[2018-07-23] MEDS: OMEPRAZOLE 20 MG CAPSULE PO SCH (10:16)
[2018-07-23] MEDS: 0.9% SODIUM CHLORIDE 10 ML SYRINGE IVP SCH ×2 (10:17→16:04)
[2018-07-23] MEDS: CALCIUM OYSTER SHELL 500 MG TABLET PO SCH (10:17)
[2018-07-23] MEDS: BUDESONIDE/FORMOTEROL FUMARATE 160-4.5 MCG/PUFF 6.9 GM INHALER IH SCH ×2 (10:19→20:12)
[2018-07-23] MEDS: ERYTHROMYCIN E SUCC 200 MG/5 ML PO SCH ×2 (10:24→20:13)
[2018-07-23] MEDS ORDERED: DEXTROSE 50%-WATER 25 GM/50 ML SYRINGE IVP PRN (12:00)
[2018-07-23] MEDS: INSULIN LISPRO 100 UNITS/ML SQ PRN ×2 (12:55→19:00)
[2018-07-23 14:19] LABS: GLUCOMETER DEV NAME(LOC) 2WR 1C; GLUCOSE,POINT OF CARE 178 MG/DL (70-110)
[2018-07-23 14:19] LABS: GLUCOMETER DEV NAME(LOC) 2WR 1C; GLUCOSE,POINT OF CARE 110 MG/DL (70-110)
[2018-07-23 15:58] VITALS: BP 117/67
[2018-07-23 17:39] LABS: GLUCOMETER DEV NAME(LOC) 2WR 2E; GLUCOSE,POINT OF CARE 159 MG/DL (70-110)
[2018-07-23 20:10] VITALS: BP 123/64
[2018-07-23] MEDS: COLD CREAM, SKIN EMOLLIENT 340 GM JAR TP SCH (20:12)
[2018-07-23] MEDS: SENNA 187 MG TABLET PO SCH (20:12)
[2018-07-23 22:14] LABS: GLUCOMETER DEV NAME(LOC) 2WR 1C; GLUCOSE,POINT OF CARE 90 MG/DL (70-110)
[2018-07-24] MEDS: 0.9% SODIUM CHLORIDE 10 ML SYRINGE IVP SCH
[2018-07-24 00:32] VITALS: BP 103/65
[2018-07-24 01:47] LABS: APPEARANCE,URINE CLOUDY (CLEAR); GLUCOSE, URINE (UA) NEGATIVE (NEGATIVE); KETONES,URINE TRACE mg/dL (NEGATIVE); LEUKOCYTE ESTERASE ,URINE MODERATE (NEGATIVE); NITRATE,URINE POSITIVE (NEGATIVE); OCCULT BLOOD,URINE NEGATIVE (NEGATIVE); PH,URINE 8.5 (5.0-8.0); PROTEIN,URINE SEE CONFIRM (NEGATIVE)
[2018-07-24 01:48] LABS: BILIRUBIN,URINE PRELIM. POSITIVE (NEGATIVE)
[2018-07-24 02:03] LABS: RBC,URINE 0-2 /HPF (0-2)
[2018-07-24 02:04] LABS: BACTERIA,URINE Many /HPF (None Seen); RENAL EPITHELIAL CELLS,URINE Moderate /LPF (None Seen); SQUAMOUS EPITHELIAL CELL,UR Rare /LPF (None Seen)
[2018-07-24 02:06] LABS: SULFOSALICYLIC ACID,URINE Trace (Negative); TRIPLE PHOSPHATE CRYSTAL,UR Rare /LPF (None Seen)
[2018-07-24] MEDS: LEVOTHYROXINE SODIUM 150 MCG TABLET PO SCH (05:38)
[2018-07-24 05:54] LABS: GLUCOMETER DEV NAME(LOC) 2WR 1C; GLUCOSE,POINT OF CARE 58 MG/DL (70-110)
[2018-07-24 06:40] LABS: GLUCOMETER DEV NAME(LOC) 2WR 1C; GLUCOSE,POINT OF CARE 116 MG/DL (70-110)
[2018-07-24 07:36] VITALS: BP 111/71
[2018-07-24] MEDS: DILTIAZEM HCL CD 240 MG ER CAPSULE PO SCH (07:57)
[2018-07-24] MEDS: DOCUSATE SODIUM 250 MG CAPSULE PO SCH ×2 (07:59→20:38)
[2018-07-24] MEDS: VIT A,C & E/LUTEIN/MINERALS TABLET PO SCH (07:59)
[2018-07-24] MEDS: OMEPRAZOLE 20 MG CAPSULE PO SCH (07:59)
[2018-07-24] MEDS: POTASSIUM CHLORIDE 8 MEQ ER TABLET PO SCH (08:00)
[2018-07-24] MEDS: CHOLECALCIFEROL (VIT D3) 1,000 UNITS TABLET PO SCH (08:00)
[2018-07-24] MEDS: CALCIUM OYSTER SHELL 500 MG TABLET PO SCH (08:00)
[2018-07-24] MEDS: OXYBUTYNIN CHLORIDE 5 MG TABLET PO SCH ×2 (08:01→20:39)
[2018-07-24] MEDS: ASCORBIC ACID 500 MG TABLET PO SCH (08:01)
[2018-07-24] MEDS: LISINOPRIL 20 MG TABLET PO SCH (08:01)
[2018-07-24] MEDS: FUROSEMIDE 20 MG TABLET PO SCH (08:01)
[2018-07-24] MEDS ORDERED: 0.9% SODIUM CHLORIDE 5 ML NEB SOLUTION NEB ONE ×2 (09:59→13:54)
[2018-07-24] MEDS: ALBUTEROL SULFATE 2.5 MG/0.5 ML NEB SOLUTION NEB SCH ×4 (10:02→21:00)
[2018-07-24] MEDS: ERYTHROMYCIN E SUCC 200 MG/5 ML PO SCH ×2 (10:36→20:38)
[2018-07-24] MEDS: BUDESONIDE/FORMOTEROL FUMARATE 160-4.5 MCG/PUFF 6.9 GM INHALER IH SCH ×2 (10:36→20:39)
[2018-07-24] MEDS: INSULIN GLARGINE,HUM.REC.ANLOG 100 UNITS/ML SQ SCH (10:41)
[2018-07-24] MEDS: OXYGEN THERAPY IH SCH ×2 (10:43→20:38)
[2018-07-24 13:54] LABS: GLUCOMETER DEV NAME(LOC) 2WR 1C; GLUCOSE,POINT OF CARE 115 MG/DL (70-110)
[2018-07-24 16:01] VITALS: BP 109/60
[2018-07-24] MEDS: IPRATROPIUM BROMIDE 0.5 MG/2.5 ML NEB SOLUTION NEB PRN ×2 (17:01→21:00)
[2018-07-24 18:04] LABS: GLUCOMETER DEV NAME(LOC) 2WR 1C; GLUCOSE,POINT OF CARE 189 MG/DL (70-110)
[2018-07-24] MEDS: INSULIN LISPRO 100 UNITS/ML SQ PRN ×2 (19:08→21:33)
[2018-07-24 20:36] VITALS: BP 111/63
[2018-07-24] MEDS: SENNA 187 MG TABLET PO SCH (20:38)
[2018-07-24] MEDS: COLD CREAM, SKIN EMOLLIENT 340 GM JAR TP SCH (20:39)
[2018-07-24 22:13] LABS: GLUCOMETER DEV NAME(LOC) 2WR 2E; GLUCOSE,POINT OF CARE 151 MG/DL (70-110)
[2018-07-24 23:52] VITALS: BP 104/59
[2018-07-25 05:55] LABS: GLUCOMETER DEV NAME(LOC) 2WR 2E; GLUCOSE,POINT OF CARE 111 MG/DL (70-110)
[2018-07-25] MEDS: LEVOTHYROXINE SODIUM 150 MCG TABLET PO SCH (06:28)
[2018-07-25 06:43] LABS: BASOPHILS % (AUTO) 0.5 % (0.0-2.0); EOSINOPHILS % (AUTO) 2.6 % (1.0-6.0); HEMATOCRIT 35.4 % (36-46); HEMOGLOBIN 11.6 g/dL (12.0-16.0); LYMPHOCYTES # (AUTO) 1.5 K/uL (1.0-4.8); LYMPHOCYTES % (AUTO) 11.4 % (22.0-44.0); MEAN CORPUSCULAR HEMOGLOBIN 27.3 pg (26.0-34.0); MEAN CORPUSCULAR HGB CONC 32.7 G/dL (31.0-37.0); MEAN CORPUSCULAR VOLUME 84 fL (80-100); MONOCYTES # (AUTO) 0.6 K/uL (0.1-1.0); MONOCYTES % (AUTO) 4.4 % (2.0-9.0); NEUTROPHILS # (AUTO) 10.7 K/uL (1.8-7.7); NEUTROPHILS % (AUTO) 81.1 % (40.0-70.0); PLATELET COUNT (AUTO) 326 K/uL (150-450); RED BLOOD CELL COUNT(AUTO) 4.24 MIL/uL (4.00-5.20); RED CELL DISTRIBUTION WIDTH 15.7 % (11.5-14.5)
[2018-07-25 07:03] LABS: ALANINE AMINOTRANSFERASE 23 U/L (12-78); ALBUMIN 2.3 g/dL (3.4-5.0); ALKALINE PHOSPHATASE 93 U/L (46-116); ANION GAP 6 mmol/L (8-16); ASPARTATE AMINOTRANSFERASE 29 U/L (15-37); BILIRUBIN,TOTAL 0.4 mg/dL (0.1-1.0); CALCIUM, TOTAL 8.6 mg/dL (8.8-10.5); CARBON DIOXIDE 32 mmol/L (22-29); CHLORIDE 102 mmol/L (98-107); CREATININE 0.73 mg/dL (0.60-1.30); GLUCOSE,RANDOM 96 mg/dL (70-110); POTASSIUM 3.9 mmol/L (3.5-5.1); SODIUM SERUM 140 mmol/L (136-145); TOTAL PROTEIN, SERUM 6.9 g/dL (6.4-8.2); UREA NITROGEN, BLOOD 12 mg/dL (7-18)
[2018-07-25 07:06] LABS: GLOMERULAR FILTR. RATE CALC > 60 mL/min (>60)
[2018-07-25 08:43] VITALS: BP 132/68
[2018-07-25] MEDS: FUROSEMIDE 20 MG TABLET PO SCH (08:51)
[2018-07-25] MEDS: OXYGEN THERAPY IH SCH ×2 (08:51→20:54)
[2018-07-25] MEDS: CALCIUM OYSTER SHELL 500 MG TABLET PO SCH (08:51)
[2018-07-25] MEDS: CHOLECALCIFEROL (VIT D3) 1,000 UNITS TABLET PO SCH (08:51)
[2018-07-25] MEDS: OMEPRAZOLE 20 MG CAPSULE PO SCH (08:52)
[2018-07-25] MEDS: VIT A,C & E/LUTEIN/MINERALS TABLET PO SCH (08:52)
[2018-07-25] MEDS: LISINOPRIL 20 MG TABLET PO SCH (08:52)
[2018-07-25] MEDS: DILTIAZEM HCL CD 240 MG ER CAPSULE PO SCH (08:52)
[2018-07-25] MEDS: DOCUSATE SODIUM 250 MG CAPSULE PO SCH ×2 (08:52→20:54)
[2018-07-25] MEDS: POTASSIUM CHLORIDE 8 MEQ ER TABLET PO SCH (08:52)
[2018-07-25] MEDS: ASCORBIC ACID 500 MG TABLET PO SCH (08:52)
[2018-07-25] MEDS: OXYBUTYNIN CHLORIDE 5 MG TABLET PO SCH ×2 (08:53→20:55)
[2018-07-25] MEDS: BUDESONIDE/FORMOTEROL FUMARATE 160-4.5 MCG/PUFF 6.9 GM INHALER IH SCH ×2 (08:54→20:54)
[2018-07-25] MEDS ORDERED: 0.9% SODIUM CHLORIDE 5 ML NEB SOLUTION NEB ONE ×2 (10:15→21:00)
[2018-07-25] MEDS: ALBUTEROL SULFATE 2.5 MG/0.5 ML NEB SOLUTION NEB SCH ×4 (10:18→21:29)
[2018-07-25] MEDS: IPRATROPIUM BROMIDE 0.5 MG/2.5 ML NEB SOLUTION NEB PRN ×3 (10:18→16:19)
[2018-07-25 13:09] LABS: GLUCOMETER DEV NAME(LOC) 2WR 2E; GLUCOSE,POINT OF CARE 126 MG/DL (70-110)
[2018-07-25 15:43] VITALS: BP 108/58
[2018-07-25 18:24] LABS: GLUCOMETER DEV NAME(LOC) 2WR 2E; GLUCOSE,POINT OF CARE 207 MG/DL (70-110)
[2018-07-25] MEDS: INSULIN LISPRO 100 UNITS/ML SQ PRN ×2 (18:27→21:11)
[2018-07-25 20:51] VITALS: BP 130/78
[2018-07-25] MEDS: SENNA 187 MG TABLET PO SCH (20:54)
[2018-07-25] MEDS: COLD CREAM, SKIN EMOLLIENT 340 GM JAR TP SCH (20:56)
[2018-07-25 21:48] LABS: GLUCOMETER DEV NAME(LOC) 2WR 1C; GLUCOSE,POINT OF CARE 144 MG/DL (70-110)
[2018-07-26 00:15] VITALS: BP 121/66
[2018-07-26] MEDS: LEVOTHYROXINE SODIUM 150 MCG TABLET PO SCH (05:42)
[2018-07-26 05:44] LABS: GLUCOMETER DEV NAME(LOC) 2WR 2E; GLUCOSE,POINT OF CARE 126 MG/DL (70-110)
[2018-07-26 07:45] VITALS: BP 133/73
[2018-07-26] MEDS: OMEPRAZOLE 20 MG CAPSULE PO SCH (08:33)
[2018-07-26] MEDS: ASCORBIC ACID 500 MG TABLET PO SCH (08:33)
[2018-07-26] MEDS: CALCIUM OYSTER SHELL 500 MG TABLET PO SCH (08:33)
[2018-07-26] MEDS: POTASSIUM CHLORIDE 8 MEQ ER TABLET PO SCH (08:33)
[2018-07-26] MEDS: DOCUSATE SODIUM 250 MG CAPSULE PO SCH ×2 (08:33→20:31)
[2018-07-26] MEDS: VIT A,C & E/LUTEIN/MINERALS TABLET PO SCH (08:33)
[2018-07-26] MEDS: CHOLECALCIFEROL (VIT D3) 1,000 UNITS TABLET PO SCH (08:33)
[2018-07-26] MEDS: OXYBUTYNIN CHLORIDE 5 MG TABLET PO SCH ×2 (08:34→20:31)
[2018-07-26] MEDS: LISINOPRIL 20 MG TABLET PO SCH (08:34)
[2018-07-26] MEDS: BUDESONIDE/FORMOTEROL FUMARATE 160-4.5 MCG/PUFF 6.9 GM INHALER IH SCH ×2 (08:35→20:31)
[2018-07-26] MEDS: DILTIAZEM HCL CD 240 MG ER CAPSULE PO SCH (08:35)
[2018-07-26] MEDS: FUROSEMIDE 20 MG TABLET PO SCH (08:35)
[2018-07-26] MEDS: OXYGEN THERAPY IH SCH ×2 (08:38→20:31)
[2018-07-26] MEDS ORDERED: 0.9% SODIUM CHLORIDE 5 ML NEB SOLUTION NEB ONE ×3 (08:50→21:11)
[2018-07-26] MEDS: ALBUTEROL SULFATE 2.5 MG/0.5 ML NEB SOLUTION NEB SCH ×4 (09:24→21:13)
[2018-07-26] MEDS: INSULIN GLARGINE,HUM.REC.ANLOG 100 UNITS/ML SQ SCH (09:51)
[2018-07-26 13:49] LABS: GLUCOMETER DEV NAME(LOC) 2WR 2E; GLUCOSE,POINT OF CARE 130 MG/DL (70-110)
[2018-07-26 16:12] VITALS: BP 118/62
[2018-07-26 17:34] LABS: GLUCOMETER DEV NAME(LOC) 2WR 2E; GLUCOSE,POINT OF CARE 92 MG/DL (70-110)
[2018-07-26] MEDS: COLD CREAM, SKIN EMOLLIENT 340 GM JAR TP SCH (20:30)
[2018-07-26] MEDS: SENNA 187 MG TABLET PO SCH (20:31)
[2018-07-26 21:34] LABS: GLUCOMETER DEV NAME(LOC) 2WR 2E; GLUCOSE,POINT OF CARE 109 MG/DL (70-110)
[2018-07-27 02:39] VITALS: BP 131/75
[2018-07-27] MEDS: MAGNESIUM HYDROXIDE SUSPENSION 30 ML UDCUP PO PRN (06:36)
[2018-07-27] MEDS: LEVOTHYROXINE SODIUM 150 MCG TABLET PO SCH (06:36)
[2018-07-27 06:39] LABS: GLUCOMETER DEV NAME(LOC) 2WR 1C; GLUCOSE,POINT OF CARE 82 MG/DL (70-110)
[2018-07-27 07:30] VITALS: BP 127/81
[2018-07-27] MEDS: OXYGEN THERAPY IH SCH ×2 (08:51→20:28)
[2018-07-27] MEDS: POTASSIUM CHLORIDE 8 MEQ ER TABLET PO SCH (09:02)
[2018-07-27] MEDS: CHOLECALCIFEROL (VIT D3) 1,000 UNITS TABLET PO SCH (09:02)
[2018-07-27] MEDS: LISINOPRIL 20 MG TABLET PO SCH (09:02)
[2018-07-27] MEDS: DOCUSATE SODIUM 250 MG CAPSULE PO SCH ×2 (09:02→20:28)
[2018-07-27] MEDS: DILTIAZEM HCL CD 240 MG ER CAPSULE PO SCH (09:02)
[2018-07-27] MEDS: OMEPRAZOLE 20 MG CAPSULE PO SCH (09:02)
[2018-07-27] MEDS: OXYBUTYNIN CHLORIDE 5 MG TABLET PO SCH ×2 (09:03→20:28)
[2018-07-27] MEDS: FUROSEMIDE 20 MG TABLET PO SCH (09:03)
[2018-07-27] MEDS: VIT A,C & E/LUTEIN/MINERALS TABLET PO SCH (09:03)
[2018-07-27] MEDS: ASCORBIC ACID 500 MG TABLET PO SCH (09:03)
[2018-07-27] MEDS: CALCIUM OYSTER SHELL 500 MG TABLET PO SCH (09:03)
[2018-07-27] MEDS: BUDESONIDE/FORMOTEROL FUMARATE 160-4.5 MCG/PUFF 6.9 GM INHALER IH SCH ×2 (09:04→20:28)
[2018-07-27] MEDS: INSULIN GLARGINE,HUM.REC.ANLOG 100 UNITS/ML SQ SCH (09:11)
[2018-07-27] MEDS: ALBUTEROL SULFATE 2.5 MG/0.5 ML NEB SOLUTION NEB SCH ×4 (09:14→20:37)
[2018-07-27] MEDS: IPRATROPIUM BROMIDE 0.5 MG/2.5 ML NEB SOLUTION NEB PRN ×2 (09:14→13:48)
[2018-07-27 12:35] LABS: GLUCOMETER DEV NAME(LOC) 2WR 1C; GLUCOSE,POINT OF CARE 80 MG/DL (70-110)
[2018-07-27 15:27] VITALS: BP 117/76
[2018-07-27 15:42] LABS: APPEARANCE,URINE CLOUDY (CLEAR); BILIRUBIN,URINE NEGATIVE (NEGATIVE); GLUCOSE, URINE (UA) NEGATIVE (NEGATIVE); KETONES,URINE NEGATIVE (NEGATIVE); LEUKOCYTE ESTERASE ,URINE NEGATIVE (NEGATIVE); NITRATE,URINE POSITIVE (NEGATIVE); OCCULT BLOOD,URINE NEGATIVE (NEGATIVE); PROTEIN,URINE POS 1+ (NEGATIVE); UROBILINOGEN,URINE 0.2 mg/dL (<=1.0)
[2018-07-27] MEDS ORDERED: 0.9% SODIUM CHLORIDE 5 ML NEB SOLUTION NEB ONE ×2 (16:11→20:33)
[2018-07-27 16:31] LABS: AMORPHOUS SEDIMENT,UR Few /LPF (None Seen); BACTERIA,URINE Many /HPF (None Seen); RBC,URINE None Seen /HPF (0-2); SQUAMOUS EPITHELIAL CELL,UR Few /LPF (None Seen); WBC,URINE 0-2 /HPF (0-5)
[2018-07-27 18:00] LABS: GLUCOMETER DEV NAME(LOC) 2WR 2E; GLUCOSE,POINT OF CARE 106 MG/DL (70-110)
[2018-07-27 20:23] VITALS: BP 113/62
[2018-07-27] MEDS: SENNA 187 MG TABLET PO SCH (20:27)
[2018-07-27] MEDS: COLD CREAM, SKIN EMOLLIENT 340 GM JAR TP SCH (20:28)
[2018-07-27 20:54] LABS: GLUCOMETER DEV NAME(LOC) 2WR 2E; GLUCOSE,POINT OF CARE 112 MG/DL (70-110)
[2018-07-28 01:00] VITALS: BP 121/70
[2018-07-28 05:55] LABS: GLUCOMETER DEV NAME(LOC) 2WR 2E; GLUCOSE,POINT OF CARE 114 MG/DL (70-110)
[2018-07-28 06:08] LABS: BASOPHILS % (AUTO) 0.9 % (0.0-2.0); EOSINOPHILS % (AUTO) 3.1 % (1.0-6.0); HEMATOCRIT 35.2 % (36-46); HEMOGLOBIN 11.7 g/dL (12.0-16.0); LYMPHOCYTES # (AUTO) 1.3 K/uL (1.0-4.8); LYMPHOCYTES % (AUTO) 12.2 % (22.0-44.0); MEAN CORPUSCULAR HEMOGLOBIN 27.9 pg (26.0-34.0); MEAN CORPUSCULAR HGB CONC 33.3 G/dL (31.0-37.0); MEAN CORPUSCULAR VOLUME 84 fL (80-100); MONOCYTES # (AUTO) 0.6 K/uL (0.1-1.0); MONOCYTES % (AUTO) 5.5 % (2.0-9.0); NEUTROPHILS # (AUTO) 8.2 K/uL (1.8-7.7); NEUTROPHILS % (AUTO) 78.3 % (40.0-70.0); PLATELET COUNT (AUTO) 265 K/uL (150-450); RED CELL DISTRIBUTION WIDTH 15.6 % (11.5-14.5)
[2018-07-28] MEDS: LEVOTHYROXINE SODIUM 150 MCG TABLET PO SCH (06:10)
[2018-07-28 06:23] LABS: ANION GAP 2 mmol/L (8-16); CALCIUM, TOTAL 8.6 mg/dL (8.8-10.5); CARBON DIOXIDE 33 mmol/L (22-29); CHLORIDE 102 mmol/L (98-107); CREATININE 0.66 mg/dL (0.60-1.30); GLUCOSE,RANDOM 119 mg/dL (70-110); POTASSIUM 3.8 mmol/L (3.5-5.1); SODIUM SERUM 137 mmol/L (136-145); UREA NITROGEN, BLOOD 13 mg/dL (7-18)
[2018-07-28 06:44] LABS: GLOMERULAR FILTR. RATE CALC > 60 mL/min (>60)
[2018-07-28 07:10] VITALS: BP 119/61
[2018-07-28] MEDS: BUDESONIDE/FORMOTEROL FUMARATE 160-4.5 MCG/PUFF 6.9 GM INHALER IH SCH ×2 (07:51→21:11)
[2018-07-28] MEDS: DOCUSATE SODIUM 250 MG CAPSULE PO SCH ×2 (07:51→21:11)
[2018-07-28] MEDS: OMEPRAZOLE 20 MG CAPSULE PO SCH (07:51)
[2018-07-28] MEDS: VIT A,C & E/LUTEIN/MINERALS TABLET PO SCH (07:51)
[2018-07-28] MEDS: CHOLECALCIFEROL (VIT D3) 1,000 UNITS TABLET PO SCH (07:52)
[2018-07-28] MEDS: CALCIUM OYSTER SHELL 500 MG TABLET PO SCH (07:52)
[2018-07-28] MEDS: DILTIAZEM HCL CD 240 MG ER CAPSULE PO SCH (07:52)
[2018-07-28] MEDS: LISINOPRIL 20 MG TABLET PO SCH (07:52)
[2018-07-28] MEDS: FUROSEMIDE 20 MG TABLET PO SCH (07:52)
[2018-07-28] MEDS: ASCORBIC ACID 500 MG TABLET PO SCH (07:52)
[2018-07-28] MEDS: POTASSIUM CHLORIDE 8 MEQ ER TABLET PO SCH (07:52)
[2018-07-28] MEDS: OXYBUTYNIN CHLORIDE 5 MG TABLET PO SCH ×2 (07:52→21:11)
[2018-07-28] MEDS: OXYGEN THERAPY IH SCH ×2 (07:53→21:11)
[2018-07-28] MEDS: INSULIN GLARGINE,HUM.REC.ANLOG 100 UNITS/ML SQ SCH (08:34)
[2018-07-28] MEDS: ALBUTEROL SULFATE 2.5 MG/0.5 ML NEB SOLUTION NEB SCH ×4 (09:00→22:03)
[2018-07-28 15:36] VITALS: BP 150/64
[2018-07-28 18:11] VITALS: BP 132/71
[2018-07-28] MEDS: TAMSULOSIN HCL 0.4 MG CAPSULE PO SCH (21:11)
[2018-07-28] MEDS: POLYETHYLENE GLYCOL 3350 17 GM PACKET PO SCH (21:12)
[2018-07-28] MEDS: COLD CREAM, SKIN EMOLLIENT 340 GM JAR TP SCH (21:12)
[2018-07-28] MEDS: INSULIN LISPRO 100 UNITS/ML SQ PRN (21:24)
[2018-07-28 21:59] LABS: GLUCOMETER DEV NAME(LOC) 2WR 2E; GLUCOSE,POINT OF CARE 73 MG/DL (70-110)
[2018-07-28 21:59] LABS: GLUCOMETER DEV NAME(LOC) 2WR 2E; GLUCOSE,POINT OF CARE 113 MG/DL (70-110)
[2018-07-28] MEDS ORDERED: 0.9% SODIUM CHLORIDE 5 ML NEB SOLUTION NEB ONE (22:02)
[2018-07-29] VITALS: BP 138/63
[2018-07-29 00:40] LABS: GLUCOMETER DEV NAME(LOC) 2WR 1C; GLUCOSE,POINT OF CARE 182 MG/DL (70-110)
[2018-07-29] MEDS: LEVOTHYROXINE SODIUM 150 MCG TABLET PO SCH (05:38)
[2018-07-29 06:19] LABS: GLUCOMETER DEV NAME(LOC) 2WR 1C; GLUCOSE,POINT OF CARE 107 MG/DL (70-110)
[2018-07-29 07:30] VITALS: BP 157/76
[2018-07-29] MEDS: OXYGEN THERAPY IH SCH ×2 (08:40→20:21)
[2018-07-29] MEDS: IPRATROPIUM BROMIDE 0.5 MG/2.5 ML NEB SOLUTION NEB PRN ×2 (08:41→21:02)
[2018-07-29] MEDS: ALBUTEROL SULFATE 2.5 MG/0.5 ML NEB SOLUTION NEB SCH ×4 (08:41→21:02)
[2018-07-29] MEDS: POLYETHYLENE GLYCOL 3350 17 GM PACKET PO SCH ×2 (08:57→20:23)
[2018-07-29] MEDS: OXYBUTYNIN CHLORIDE 5 MG TABLET PO SCH ×2 (08:57→20:22)
[2018-07-29] MEDS: BUDESONIDE/FORMOTEROL FUMARATE 160-4.5 MCG/PUFF 6.9 GM INHALER IH SCH ×2 (08:57→20:21)
[2018-07-29] MEDS: VIT A,C & E/LUTEIN/MINERALS TABLET PO SCH (08:57)
[2018-07-29] MEDS: CALCIUM OYSTER SHELL 500 MG TABLET PO SCH (08:58)
[2018-07-29] MEDS: CHOLECALCIFEROL (VIT D3) 1,000 UNITS TABLET PO SCH (08:58)
[2018-07-29] MEDS: POTASSIUM CHLORIDE 8 MEQ ER TABLET PO SCH (08:58)
[2018-07-29] MEDS: ASCORBIC ACID 500 MG TABLET PO SCH (08:58)
[2018-07-29] MEDS: DOCUSATE SODIUM 250 MG CAPSULE PO SCH ×2 (08:58→20:22)
[2018-07-29] MEDS: FUROSEMIDE 20 MG TABLET PO SCH (08:58)
[2018-07-29] MEDS: OMEPRAZOLE 20 MG CAPSULE PO SCH (08:58)
[2018-07-29] MEDS: LISINOPRIL 20 MG TABLET PO SCH (08:58)
[2018-07-29] MEDS: DILTIAZEM HCL CD 240 MG ER CAPSULE PO SCH (08:58)
[2018-07-29] MEDS: INSULIN GLARGINE,HUM.REC.ANLOG 100 UNITS/ML SQ SCH (09:56)
[2018-07-29 12:49] LABS: GLUCOMETER DEV NAME(LOC) 2WR 1C; GLUCOSE,POINT OF CARE 124 MG/DL (70-110)
[2018-07-29] MEDS ORDERED: 0.9% SODIUM CHLORIDE 5 ML NEB SOLUTION NEB ONE ×2 (13:13→16:44)
[2018-07-29 16:00] VITALS: BP 125/95
[2018-07-29 18:14] LABS: GLUCOMETER DEV NAME(LOC) 2WR 1C; GLUCOSE,POINT OF CARE 112 MG/DL (70-110)
[2018-07-29] MEDS: TAMSULOSIN HCL 0.4 MG CAPSULE PO SCH (20:22)
[2018-07-29] MEDS: COLD CREAM, SKIN EMOLLIENT 340 GM JAR TP SCH (20:23)
[2018-07-29 21:07] LABS: GLUCOMETER DEV NAME(LOC) 2WR 1C; GLUCOSE,POINT OF CARE 122 MG/DL (70-110)
[2018-07-30 01:09] VITALS: BP 143/71
[2018-07-30] MEDS: LEVOTHYROXINE SODIUM 150 MCG TABLET PO SCH (05:58)
[2018-07-30 06:10] LABS: GLUCOMETER DEV NAME(LOC) 2WR 1C; GLUCOSE,POINT OF CARE 111 MG/DL (70-110)
[2018-07-30 07:10] VITALS: BP 111/48
[2018-07-30] MEDS: OXYGEN THERAPY IH SCH ×2 (08:00→20:39)
[2018-07-30] MEDS ORDERED: 0.9% SODIUM CHLORIDE 5 ML NEB SOLUTION NEB ONE ×3 (08:58→16:10)
[2018-07-30] MEDS: ALBUTEROL SULFATE 2.5 MG/0.5 ML NEB SOLUTION NEB SCH ×5 (09:00→21:07)
[2018-07-30 09:05] LABS: GLUCOMETER DEV NAME(LOC) 2WR 1C; GLUCOSE,POINT OF CARE 75 MG/DL (70-110)
[2018-07-30] MEDS: INSULIN GLARGINE,HUM.REC.ANLOG 100 UNITS/ML SQ SCH (10:03)
[2018-07-30] MEDS: CHOLECALCIFEROL (VIT D3) 1,000 UNITS TABLET PO SCH (10:06)
[2018-07-30] MEDS: CALCIUM OYSTER SHELL 500 MG TABLET PO SCH (10:06)
[2018-07-30] MEDS: VIT A,C & E/LUTEIN/MINERALS TABLET PO SCH (10:06)
[2018-07-30] MEDS: LISINOPRIL 20 MG TABLET PO SCH (10:06)
[2018-07-30] MEDS: DOCUSATE SODIUM 250 MG CAPSULE PO SCH ×2 (10:06→20:40)
[2018-07-30] MEDS: FUROSEMIDE 20 MG TABLET PO SCH (10:07)
[2018-07-30] MEDS: DILTIAZEM HCL CD 240 MG ER CAPSULE PO SCH (10:07)
[2018-07-30] MEDS: OMEPRAZOLE 20 MG CAPSULE PO SCH (10:07)
[2018-07-30] MEDS: POTASSIUM CHLORIDE 8 MEQ ER TABLET PO SCH (10:07)
[2018-07-30] MEDS: POLYETHYLENE GLYCOL 3350 17 GM PACKET PO SCH ×2 (10:07→20:39)
[2018-07-30] MEDS: BUDESONIDE/FORMOTEROL FUMARATE 160-4.5 MCG/PUFF 6.9 GM INHALER IH SCH ×2 (10:07→20:39)
[2018-07-30] MEDS: OXYBUTYNIN CHLORIDE 5 MG TABLET PO SCH (10:07)
[2018-07-30] MEDS: ASCORBIC ACID 500 MG TABLET PO SCH (10:07)
[2018-07-30 15:04] LABS: GLUCOMETER DEV NAME(LOC) 2WR 1C; GLUCOSE,POINT OF CARE 113 MG/DL (70-110)
[2018-07-30 15:40] VITALS: BP 110/61
[2018-07-30 18:29] LABS: GLUCOMETER DEV NAME(LOC) 2WR 1C; GLUCOSE,POINT OF CARE 72 MG/DL (70-110)
[2018-07-30 20:37] VITALS: BP 142/73
[2018-07-30] MEDS: COLD CREAM, SKIN EMOLLIENT 340 GM JAR TP SCH (20:39)
[2018-07-30] MEDS: TAMSULOSIN HCL 0.4 MG CAPSULE PO SCH (20:40)
[2018-07-30] MEDS: IPRATROPIUM BROMIDE 0.5 MG/2.5 ML NEB SOLUTION NEB PRN (21:07)
[2018-07-30 21:14] LABS: GLUCOMETER DEV NAME(LOC) 2WR 1C; GLUCOSE,POINT OF CARE 87 MG/DL (70-110)
[2018-07-31] VITALS: BP 130/70
[2018-07-31 01:49] LABS: APPEARANCE,URINE CLOUDY (CLEAR); BILIRUBIN,URINE NEGATIVE (NEGATIVE); GLUCOSE, URINE (UA) NEGATIVE (NEGATIVE); KETONES,URINE NEGATIVE (NEGATIVE); LEUKOCYTE ESTERASE ,URINE LARGE (NEGATIVE); NITRATE,URINE NEGATIVE (NEGATIVE); OCCULT BLOOD,URINE SMALL (NEGATIVE); PROTEIN,URINE POS 1+ (NEGATIVE); UROBILINOGEN,URINE 0.2 mg/dL (<=1.0)
[2018-07-31 02:10] LABS: BACTERIA,URINE Moderate /HPF (None Seen); SQUAMOUS EPITHELIAL CELL,UR None Seen /LPF (None Seen); WBC,URINE 26-50 /HPF (0-5)
[2018-07-31 06:09] LABS: GLUCOMETER DEV NAME(LOC) 2WR 2E; GLUCOSE,POINT OF CARE 112 MG/DL (70-110)
[2018-07-31] MEDS: LEVOTHYROXINE SODIUM 150 MCG TABLET PO SCH (06:10)
[2018-07-31 06:36] LABS: BASOPHILS % (AUTO) 1.1 % (0.0-2.0); EOSINOPHILS % (AUTO) 3.7 % (1.0-6.0); HEMATOCRIT 32.3 % (36-46); HEMOGLOBIN 10.8 g/dL (12.0-16.0); LYMPHOCYTES # (AUTO) 1.2 K/uL (1.0-4.8); LYMPHOCYTES % (AUTO) 12.7 % (22.0-44.0); MEAN CORPUSCULAR HGB CONC 33.4 G/dL (31.0-37.0); MEAN CORPUSCULAR VOLUME 84 fL (80-100); MONOCYTES # (AUTO) 0.5 K/uL (0.1-1.0); MONOCYTES % (AUTO) 5.5 % (2.0-9.0); NEUTROPHILS # (AUTO) 7.6 K/uL (1.8-7.7); PLATELET COUNT (AUTO) 252 K/uL (150-450); RED BLOOD CELL COUNT(AUTO) 3.85 MIL/uL (4.00-5.20)
[2018-07-31 06:55] LABS: ALANINE AMINOTRANSFERASE 33 U/L (12-78); ALBUMIN 2.3 g/dL (3.4-5.0); ALKALINE PHOSPHATASE 95 U/L (46-116); ANION GAP 5 mmol/L (8-16); ASPARTATE AMINOTRANSFERASE 31 U/L (15-37); BILIRUBIN,TOTAL 0.3 mg/dL (0.1-1.0); CALCIUM, TOTAL 8.7 mg/dL (8.8-10.5); CARBON DIOXIDE 31 mmol/L (22-29); CHLORIDE 101 mmol/L (98-107); CREATININE 0.73 mg/dL (0.60-1.30); GLUCOSE,RANDOM 95 mg/dL (70-110); POTASSIUM 3.7 mmol/L (3.5-5.1); SODIUM SERUM 137 mmol/L (136-145); TOTAL PROTEIN, SERUM 7.3 g/dL (6.4-8.2); UREA NITROGEN, BLOOD 13 mg/dL (7-18)
[2018-07-31 06:57] LABS: GLOMERULAR FILTR. RATE CALC > 60 mL/min (>60)
[2018-07-31 07:00] VITALS: BP 141/55
[2018-07-31] MEDS: POLYETHYLENE GLYCOL 3350 17 GM PACKET PO SCH ×2 (08:50→21:10)
[2018-07-31] MEDS: CHOLECALCIFEROL (VIT D3) 1,000 UNITS TABLET PO SCH (08:50)
[2018-07-31] MEDS: DOCUSATE SODIUM 250 MG CAPSULE PO SCH ×2 (08:50→21:10)
[2018-07-31] MEDS: VIT A,C & E/LUTEIN/MINERALS TABLET PO SCH (08:50)
[2018-07-31] MEDS: ASCORBIC ACID 500 MG TABLET PO SCH (08:50)
[2018-07-31] MEDS: CALCIUM OYSTER SHELL 500 MG TABLET PO SCH (08:50)
[2018-07-31] MEDS: FUROSEMIDE 20 MG TABLET PO SCH (08:51)
[2018-07-31] MEDS: OMEPRAZOLE 20 MG CAPSULE PO SCH (08:51)
[2018-07-31] MEDS: DILTIAZEM HCL CD 240 MG ER CAPSULE PO SCH (08:51)
[2018-07-31] MEDS: POTASSIUM CHLORIDE 8 MEQ ER TABLET PO SCH (08:51)
[2018-07-31] MEDS: LISINOPRIL 20 MG TABLET PO SCH (08:51)
[2018-07-31] MEDS: BUDESONIDE/FORMOTEROL FUMARATE 160-4.5 MCG/PUFF 6.9 GM INHALER IH SCH ×2 (08:51→21:09)
[2018-07-31] MEDS: OXYGEN THERAPY IH SCH ×2 (08:52→21:05)
[2018-07-31] MEDS: INSULIN GLARGINE,HUM.REC.ANLOG 100 UNITS/ML SQ SCH (09:00)
[2018-07-31] MEDS: ALBUTEROL SULFATE 2.5 MG/0.5 ML NEB SOLUTION NEB SCH ×4 (10:39→19:52)
[2018-07-31 15:00] VITALS: BP 143/72
[2018-07-31] MEDS ORDERED: 0.9% SODIUM CHLORIDE 5 ML NEB SOLUTION NEB ONE ×2 (16:04→19:32)
[2018-07-31] MEDS: INSULIN LISPRO 100 UNITS/ML SQ PRN (17:39)
[2018-07-31] MEDS: TAMSULOSIN HCL 0.4 MG CAPSULE PO SCH (21:10)
[2018-07-31] MEDS: COLD CREAM, SKIN EMOLLIENT 340 GM JAR TP SCH (21:10)
[2018-07-31 22:59] LABS: GLUCOMETER DEV NAME(LOC) 2WR 2E; GLUCOSE,POINT OF CARE 171 MG/DL (70-110)
[2018-07-31 22:59] LABS: GLUCOMETER DEV NAME(LOC) 2WR 1C; GLUCOSE,POINT OF CARE 75 MG/DL (70-110)
[2018-07-31 22:59] LABS: GLUCOMETER DEV NAME(LOC) 2WR 1C; GLUCOSE,POINT OF CARE 145 MG/DL (70-110)
[2018-08-01 05:00] VITALS: BP 131/60
[2018-08-01] MEDS: LEVOTHYROXINE SODIUM 150 MCG TABLET PO SCH (05:45)
[2018-08-01 06:25] LABS: GLUCOMETER DEV NAME(LOC) 2WR 1C; GLUCOSE,POINT OF CARE 103 MG/DL (70-110)
[2018-08-01 07:10] VITALS: BP 137/72
[2018-08-01] MEDS ORDERED: 0.9% SODIUM CHLORIDE 5 ML NEB SOLUTION NEB ONE ×2 (07:37→21:08)
[2018-08-01] MEDS: OXYGEN THERAPY IH SCH (07:38)
[2018-08-01] MEDS: ALBUTEROL SULFATE 2.5 MG/0.5 ML NEB SOLUTION NEB SCH ×4 (07:38→21:11)
[2018-08-01] MEDS: OMEPRAZOLE 20 MG CAPSULE PO SCH (09:40)
[2018-08-01] MEDS: POTASSIUM CHLORIDE 8 MEQ ER TABLET PO SCH (09:40)
[2018-08-01] MEDS: LISINOPRIL 20 MG TABLET PO SCH (09:40)
[2018-08-01] MEDS: ASCORBIC ACID 500 MG TABLET PO SCH (09:40)
[2018-08-01] MEDS: DILTIAZEM HCL CD 240 MG ER CAPSULE PO SCH (09:40)
[2018-08-01] MEDS: CHOLECALCIFEROL (VIT D3) 1,000 UNITS TABLET PO SCH (09:40)
[2018-08-01] MEDS: BUDESONIDE/FORMOTEROL FUMARATE 160-4.5 MCG/PUFF 6.9 GM INHALER IH SCH ×2 (09:40→20:31)
[2018-08-01] MEDS: DOCUSATE SODIUM 250 MG CAPSULE PO SCH ×2 (09:40→20:31)
[2018-08-01] MEDS: CALCIUM OYSTER SHELL 500 MG TABLET PO SCH (09:40)
[2018-08-01] MEDS: VIT A,C & E/LUTEIN/MINERALS TABLET PO SCH (09:40)
[2018-08-01] MEDS: FUROSEMIDE 20 MG TABLET PO SCH (09:40)
[2018-08-01] MEDS: POLYETHYLENE GLYCOL 3350 17 GM PACKET PO SCH ×2 (09:41→20:31)
[2018-08-01] MEDS: INSULIN GLARGINE,HUM.REC.ANLOG 100 UNITS/ML SQ SCH (09:43)
[2018-08-01] MEDS: IPRATROPIUM BROMIDE 0.5 MG/2.5 ML NEB SOLUTION NEB PRN ×2 (11:25→15:32)
[2018-08-01 13:19] LABS: GLUCOMETER DEV NAME(LOC) 2WR 2E; GLUCOSE,POINT OF CARE 140 MG/DL (70-110)
[2018-08-01 15:34] VITALS: BP 102/55
[2018-08-01 19:03] LABS: GLUCOMETER DEV NAME(LOC) 2WR 2E; GLUCOSE,POINT OF CARE 124 MG/DL (70-110)
[2018-08-01 20:29] VITALS: BP 132/59
[2018-08-01] MEDS: COLD CREAM, SKIN EMOLLIENT 340 GM JAR TP SCH (20:31)
[2018-08-01] MEDS: TAMSULOSIN HCL 0.4 MG CAPSULE PO SCH (20:31)
[2018-08-01] MEDS: INSULIN LISPRO 100 UNITS/ML SQ PRN (21:18)
[2018-08-01 21:38] LABS: GLUCOMETER DEV NAME(LOC) 2WR 2E; GLUCOSE,POINT OF CARE 179 MG/DL (70-110)
[2018-08-01] MEDS ORDERED: OS500 PO (22:21)
[2018-08-01] MEDS ORDERED: TAMS0.4C32 PO (22:29)
[2018-08-01] MEDS ORDERED: DILT240C96 PO (22:29)
[2018-08-01] MEDS ORDERED: INSU100V SQ (22:33)
[2018-08-01] MEDS ORDERED: INSLAN SQ (22:33)
[2018-08-02] VITALS: BP 141/74
[2018-08-02] MEDS ORDERED: DOCU250C91 PO (03:53)
[2018-08-02 06:28] LABS: GLUCOMETER DEV NAME(LOC) 2WR 1C; GLUCOSE,POINT OF CARE 126 MG/DL (70-110)
[2018-08-02 07:00] VITALS: BP 128/69
[2018-08-02] MEDS: LEVOTHYROXINE SODIUM 150 MCG TABLET PO SCH (07:00)
[2018-08-02] MEDS ORDERED: 0.9% SODIUM CHLORIDE 5 ML NEB SOLUTION NEB ONE ×3 (07:43→15:31)
[2018-08-02] MEDS: ALBUTEROL SULFATE 2.5 MG/0.5 ML NEB SOLUTION NEB SCH ×4 (08:01→19:56)
[2018-08-02] MEDS: OMEPRAZOLE 20 MG CAPSULE PO SCH (08:41)
[2018-08-02] MEDS: CHOLECALCIFEROL (VIT D3) 1,000 UNITS TABLET PO SCH (08:41)
[2018-08-02] MEDS: VIT A,C & E/LUTEIN/MINERALS TABLET PO SCH (08:42)
[2018-08-02] MEDS: CALCIUM OYSTER SHELL 500 MG TABLET PO SCH (08:42)
[2018-08-02] MEDS: POTASSIUM CHLORIDE 8 MEQ ER TABLET PO SCH (08:43)
[2018-08-02] MEDS: DOCUSATE SODIUM 250 MG CAPSULE PO SCH ×2 (08:43→20:38)
[2018-08-02] MEDS: ASCORBIC ACID 500 MG TABLET PO SCH (08:43)
[2018-08-02] MEDS: DILTIAZEM HCL CD 240 MG ER CAPSULE PO SCH (08:43)
[2018-08-02] MEDS: FUROSEMIDE 20 MG TABLET PO SCH (08:43)
[2018-08-02] MEDS: LISINOPRIL 20 MG TABLET PO SCH (08:43)
[2018-08-02] MEDS: BUDESONIDE/FORMOTEROL FUMARATE 160-4.5 MCG/PUFF 6.9 GM INHALER IH SCH ×2 (08:44→20:37)
[2018-08-02] MEDS: POLYETHYLENE GLYCOL 3350 17 GM PACKET PO SCH ×2 (08:46→20:37)
[2018-08-02] MEDS: INSULIN GLARGINE,HUM.REC.ANLOG 100 UNITS/ML SQ SCH (08:55)
[2018-08-02 12:29] LABS: GLUCOMETER DEV NAME(LOC) 2WR 2E; GLUCOSE,POINT OF CARE 122 MG/DL (70-110)
[2018-08-02] MEDS ORDERED: LEVO150 PO (14:20)
[2018-08-02 15:32] VITALS: BP 136/68
[2018-08-02 17:34] LABS: GLUCOMETER DEV NAME(LOC) 2WR 2E; GLUCOSE,POINT OF CARE 112 MG/DL (70-110)
[2018-08-02] MEDS: IPRATROPIUM BROMIDE 0.5 MG/2.5 ML NEB SOLUTION NEB PRN (19:56)
[2018-08-02] MEDS: TAMSULOSIN HCL 0.4 MG CAPSULE PO SCH (20:38)
[2018-08-02] MEDS: NITROFURANTOIN/NITROFURAN MAC 100 MG CAPSULE [MACROBID] PO SCH (20:38)
[2018-08-02] MEDS: COLD CREAM, SKIN EMOLLIENT 340 GM JAR TP SCH (20:38)
[2018-08-02 21:08] LABS: GLUCOMETER DEV NAME(LOC) 2WR 2E; GLUCOSE,POINT OF CARE 127 MG/DL (70-110)
[2018-08-03] VITALS: BP 139/68
[2018-08-03] MEDS ORDERED: MIRALAX PO (00:13)
[2018-08-03 05:53] LABS: GLUCOMETER DEV NAME(LOC) 2WR 2E; GLUCOSE,POINT OF CARE 75 MG/DL (70-110)
[2018-08-03] MEDS: LEVOTHYROXINE SODIUM 150 MCG TABLET PO SCH (06:23)
[2018-08-03 07:30] VITALS: BP 95/52
[2018-08-03] MEDS ORDERED: 0.9% SODIUM CHLORIDE 5 ML NEB SOLUTION NEB ONE ×3 (07:34→16:08)
[2018-08-03] MEDS: ALBUTEROL SULFATE 2.5 MG/0.5 ML NEB SOLUTION NEB SCH ×4 (08:01→20:55)
[2018-08-03 08:52] VITALS: BP 149/70
[2018-08-03] MEDS: POLYETHYLENE GLYCOL 3350 17 GM PACKET PO SCH ×3 (09:00→21:00)
[2018-08-03] MEDS: DILTIAZEM HCL CD 240 MG ER CAPSULE PO SCH (09:39)
[2018-08-03] MEDS: ASCORBIC ACID 500 MG TABLET PO SCH (09:39)
[2018-08-03] MEDS: LISINOPRIL 20 MG TABLET PO SCH (09:39)
[2018-08-03] MEDS: DOCUSATE SODIUM 250 MG CAPSULE PO SCH ×2 (09:39→21:00)
[2018-08-03] MEDS: CALCIUM OYSTER SHELL 500 MG TABLET PO SCH (09:39)
[2018-08-03] MEDS: VIT A,C & E/LUTEIN/MINERALS TABLET PO SCH (09:39)
[2018-08-03] MEDS: NITROFURANTOIN/NITROFURAN MAC 100 MG CAPSULE [MACROBID] PO SCH ×2 (09:39→21:15)
[2018-08-03] MEDS: CHOLECALCIFEROL (VIT D3) 1,000 UNITS TABLET PO SCH (09:39)
[2018-08-03] MEDS: FUROSEMIDE 20 MG TABLET PO SCH (09:39)
[2018-08-03] MEDS: OMEPRAZOLE 20 MG CAPSULE PO SCH (09:39)
[2018-08-03] MEDS: POTASSIUM CHLORIDE 8 MEQ ER TABLET PO SCH (09:39)
[2018-08-03] MEDS: BUDESONIDE/FORMOTEROL FUMARATE 160-4.5 MCG/PUFF 6.9 GM INHALER IH SCH ×2 (09:40→21:15)
[2018-08-03] MEDS: INSULIN GLARGINE,HUM.REC.ANLOG 100 UNITS/ML SQ SCH (09:49)
[2018-08-03 10:38] LABS: GLUCOMETER DEV NAME(LOC) 2WR 2E; GLUCOSE,POINT OF CARE 103 MG/DL (70-110)
[2018-08-03 12:48] LABS: GLUCOMETER DEV NAME(LOC) 2WR 2E; GLUCOSE,POINT OF CARE 146 MG/DL (70-110)
[2018-08-03] MEDS: INSULIN LISPRO 100 UNITS/ML SQ PRN (12:58)
[2018-08-03 15:15] VITALS: BP 116/62
[2018-08-03 17:48] LABS: GLUCOMETER DEV NAME(LOC) 2WR 1C; GLUCOSE,POINT OF CARE 63 MG/DL (70-110)
[2018-08-03 17:48] LABS: GLUCOMETER DEV NAME(LOC) 2WR 1C; GLUCOSE,POINT OF CARE 90 MG/DL (70-110)
[2018-08-03] MEDS: IPRATROPIUM BROMIDE 0.5 MG/2.5 ML NEB SOLUTION NEB PRN (20:55)
[2018-08-03] MEDS: COLD CREAM, SKIN EMOLLIENT 340 GM JAR TP SCH (21:15)
[2018-08-03] MEDS: TAMSULOSIN HCL 0.4 MG CAPSULE PO SCH (21:15)
[2018-08-03 21:33] LABS: GLUCOMETER DEV NAME(LOC) 2WR 1C; GLUCOSE,POINT OF CARE 112 MG/DL (70-110)
[2018-08-04 00:32] VITALS: BP 150/73
[2018-08-04] MEDS: LEVOTHYROXINE SODIUM 150 MCG TABLET PO SCH (05:38)
[2018-08-04 06:13] LABS: GLUCOMETER DEV NAME(LOC) 2WR 1C; GLUCOSE,POINT OF CARE 87 MG/DL (70-110)
[2018-08-04 07:00] VITALS: BP 124/81
[2018-08-04] MEDS: ASCORBIC ACID 500 MG TABLET PO SCH (07:48)
[2018-08-04] MEDS: BUDESONIDE/FORMOTEROL FUMARATE 160-4.5 MCG/PUFF 6.9 GM INHALER IH SCH ×2 (07:48→21:01)
[2018-08-04] MEDS: LISINOPRIL 20 MG TABLET PO SCH (07:48)
[2018-08-04] MEDS: VIT A,C & E/LUTEIN/MINERALS TABLET PO SCH (07:48)
[2018-08-04] MEDS: CHOLECALCIFEROL (VIT D3) 1,000 UNITS TABLET PO SCH (07:48)
[2018-08-04] MEDS: POLYETHYLENE GLYCOL 3350 17 GM PACKET PO SCH ×2 (07:48→21:00)
[2018-08-04] MEDS: OMEPRAZOLE 20 MG CAPSULE PO SCH (07:48)
[2018-08-04] MEDS: POTASSIUM CHLORIDE 8 MEQ ER TABLET PO SCH (07:48)
[2018-08-04] MEDS: NITROFURANTOIN/NITROFURAN MAC 100 MG CAPSULE [MACROBID] PO SCH ×2 (07:48→21:01)
[2018-08-04] MEDS: DOCUSATE SODIUM 250 MG CAPSULE PO SCH ×2 (07:48→21:01)
[2018-08-04] MEDS: DILTIAZEM HCL CD 240 MG ER CAPSULE PO SCH (07:48)
[2018-08-04] MEDS: CALCIUM OYSTER SHELL 500 MG TABLET PO SCH (07:48)
[2018-08-04] MEDS: FUROSEMIDE 20 MG TABLET PO SCH (07:48)
[2018-08-04] MEDS: INSULIN GLARGINE,HUM.REC.ANLOG 100 UNITS/ML SQ SCH (07:51)
[2018-08-04] MEDS ORDERED: 0.9% SODIUM CHLORIDE 5 ML NEB SOLUTION NEB ONE ×4 (08:59→19:59)
[2018-08-04] MEDS: ALBUTEROL SULFATE 2.5 MG/0.5 ML NEB SOLUTION NEB SCH ×4 (09:03→20:01)
[2018-08-04 13:33] LABS: GLUCOMETER DEV NAME(LOC) 2WR 1C; GLUCOSE,POINT OF CARE 99 MG/DL (70-110)
[2018-08-04 15:00] VITALS: BP 154/69
[2018-08-04 20:53] LABS: GLUCOMETER DEV NAME(LOC) 2WR 1C; GLUCOSE,POINT OF CARE 101 MG/DL (70-110)
[2018-08-04 20:55] VITALS: BP 153/58
[2018-08-04] MEDS: COLD CREAM, SKIN EMOLLIENT 340 GM JAR TP SCH (21:01)
[2018-08-04] MEDS: TAMSULOSIN HCL 0.4 MG CAPSULE PO SCH (21:01)
[2018-08-04] MEDS: INSULIN LISPRO 100 UNITS/ML SQ PRN (21:15)
[2018-08-04 22:03] LABS: GLUCOMETER DEV NAME(LOC) 2WR 2E; GLUCOSE,POINT OF CARE 192 MG/DL (70-110)
[2018-08-05 05:00] VITALS: BP 144/69
[2018-08-05] MEDS: LEVOTHYROXINE SODIUM 150 MCG TABLET PO SCH (05:38)
[2018-08-05 06:43] LABS: GLUCOMETER DEV NAME(LOC) 2WR 2E; GLUCOSE,POINT OF CARE 73 MG/DL (70-110)
[2018-08-05 07:00] VITALS: BP 156/74
[2018-08-05] MEDS: VIT A,C & E/LUTEIN/MINERALS TABLET PO SCH (07:48)
[2018-08-05] MEDS: NITROFURANTOIN/NITROFURAN MAC 100 MG CAPSULE [MACROBID] PO SCH ×2 (07:48→20:35)
[2018-08-05] MEDS: DILTIAZEM HCL CD 240 MG ER CAPSULE PO SCH (07:48)
[2018-08-05] MEDS: CALCIUM OYSTER SHELL 500 MG TABLET PO SCH (07:48)
[2018-08-05] MEDS: ASCORBIC ACID 500 MG TABLET PO SCH (07:48)
[2018-08-05] MEDS: POTASSIUM CHLORIDE 8 MEQ ER TABLET PO SCH (07:48)
[2018-08-05] MEDS: OMEPRAZOLE 20 MG CAPSULE PO SCH (07:48)
[2018-08-05] MEDS: POLYETHYLENE GLYCOL 3350 17 GM PACKET PO SCH ×2 (07:48→20:34)
[2018-08-05] MEDS: LISINOPRIL 20 MG TABLET PO SCH (07:48)
[2018-08-05] MEDS: FUROSEMIDE 20 MG TABLET PO SCH (07:48)
[2018-08-05] MEDS: CHOLECALCIFEROL (VIT D3) 1,000 UNITS TABLET PO SCH (07:48)
[2018-08-05] MEDS: BUDESONIDE/FORMOTEROL FUMARATE 160-4.5 MCG/PUFF 6.9 GM INHALER IH SCH ×2 (07:49→20:34)
[2018-08-05] MEDS: DOCUSATE SODIUM 250 MG CAPSULE PO SCH ×2 (07:49→20:35)
[2018-08-05] MEDS: ALBUTEROL SULFATE 2.5 MG/0.5 ML NEB SOLUTION NEB SCH ×4 (09:00→20:08)
[2018-08-05] MEDS: INSULIN GLARGINE,HUM.REC.ANLOG 100 UNITS/ML SQ SCH (09:00)
[2018-08-05 12:34] LABS: GLUCOMETER DEV NAME(LOC) 2WR 1C; GLUCOSE,POINT OF CARE 131 MG/DL (70-110)
[2018-08-05 15:00] VITALS: BP 143/79
[2018-08-05] MEDS ORDERED: 0.9% SODIUM CHLORIDE 5 ML NEB SOLUTION NEB ONE (17:08)
[2018-08-05] MEDS: INSULIN LISPRO 100 UNITS/ML SQ PRN (17:28)
[2018-08-05] MEDS: IPRATROPIUM BROMIDE 0.5 MG/2.5 ML NEB SOLUTION NEB PRN (20:08)
[2018-08-05] MEDS: TAMSULOSIN HCL 0.4 MG CAPSULE PO SCH (20:34)
[2018-08-05] MEDS: COLD CREAM, SKIN EMOLLIENT 340 GM JAR TP SCH (20:35)
[2018-08-05 22:23] LABS: GLUCOMETER DEV NAME(LOC) 2WR 1C; GLUCOSE,POINT OF CARE 119 MG/DL (70-110)
[2018-08-05 22:23] LABS: GLUCOMETER DEV NAME(LOC) 2WR 1C; GLUCOSE,POINT OF CARE 122 MG/DL (70-110)
[2018-08-06 00:30] VITALS: BP 153/67
[2018-08-06] MEDS: MAGNESIUM HYDROXIDE SUSPENSION 30 ML UDCUP PO PRN (06:03)
[2018-08-06] MEDS: LEVOTHYROXINE SODIUM 150 MCG TABLET PO SCH (06:03)
[2018-08-06 06:33] LABS: GLUCOMETER DEV NAME(LOC) 2WR 1C; GLUCOSE,POINT OF CARE 146 MG/DL (70-110)
[2018-08-06 06:56] LABS: BASOPHILS % (AUTO) 1.3 % (0.0-2.0); EOSINOPHILS % (AUTO) 3.5 % (1.0-6.0); HEMATOCRIT 34.1 % (36-46); HEMOGLOBIN 11.4 g/dL (12.0-16.0); LYMPHOCYTES # (AUTO) 1.2 K/uL (1.0-4.8); LYMPHOCYTES % (AUTO) 12.2 % (22.0-44.0); MEAN CORPUSCULAR HEMOGLOBIN 28.2 pg (26.0-34.0); MEAN CORPUSCULAR HGB CONC 33.4 G/dL (31.0-37.0); MEAN CORPUSCULAR VOLUME 85 fL (80-100); MONOCYTES # (AUTO) 0.6 K/uL (0.1-1.0); MONOCYTES % (AUTO) 5.6 % (2.0-9.0); NEUTROPHILS # (AUTO) 7.8 K/uL (1.8-7.7); NEUTROPHILS % (AUTO) 77.4 % (40.0-70.0); PLATELET COUNT (AUTO) 199 K/uL (150-450); RED BLOOD CELL COUNT(AUTO) 4.03 MIL/uL (4.00-5.20); RED CELL DISTRIBUTION WIDTH 17.3 % (11.5-14.5)
[2018-08-06 07:20] VITALS: BP 122/69
[2018-08-06 07:38] LABS: ALANINE AMINOTRANSFERASE 31 U/L (12-78); ALBUMIN 2.4 g/dL (3.4-5.0); ALKALINE PHOSPHATASE 104 U/L (46-116); ANION GAP 4 mmol/L (8-16); ASPARTATE AMINOTRANSFERASE 26 U/L (15-37); BILIRUBIN,TOTAL 0.4 mg/dL (0.1-1.0); CALCIUM, TOTAL 8.6 mg/dL (8.8-10.5); CARBON DIOXIDE 30 mmol/L (22-29); CHLORIDE 101 mmol/L (98-107); CREATININE 0.72 mg/dL (0.60-1.30); GLUCOSE,RANDOM 157 mg/dL (70-110); POTASSIUM 3.8 mmol/L (3.5-5.1); SODIUM SERUM 135 mmol/L (136-145); TOTAL PROTEIN, SERUM 6.8 g/dL (6.4-8.2); UREA NITROGEN, BLOOD 12 mg/dL (7-18)
[2018-08-06 07:40] LABS: GLOMERULAR FILTR. RATE CALC > 60 mL/min (>60)
[2018-08-06] MEDS: POLYETHYLENE GLYCOL 3350 17 GM PACKET PO SCH ×2 (08:57→20:11)
[2018-08-06] MEDS: CALCIUM OYSTER SHELL 500 MG TABLET PO SCH (08:57)
[2018-08-06] MEDS: CHOLECALCIFEROL (VIT D3) 1,000 UNITS TABLET PO SCH (08:57)
[2018-08-06] MEDS: VIT A,C & E/LUTEIN/MINERALS TABLET PO SCH (08:57)
[2018-08-06] MEDS: BUDESONIDE/FORMOTEROL FUMARATE 160-4.5 MCG/PUFF 6.9 GM INHALER IH SCH ×2 (08:57→20:12)
[2018-08-06] MEDS: LISINOPRIL 20 MG TABLET PO SCH (08:57)
[2018-08-06] MEDS: POTASSIUM CHLORIDE 8 MEQ ER TABLET PO SCH (08:57)
[2018-08-06] MEDS: DOCUSATE SODIUM 250 MG CAPSULE PO SCH ×2 (08:58→20:12)
[2018-08-06] MEDS: ASCORBIC ACID 500 MG TABLET PO SCH (08:58)
[2018-08-06] MEDS: OMEPRAZOLE 20 MG CAPSULE PO SCH (08:58)
[2018-08-06] MEDS: FUROSEMIDE 20 MG TABLET PO SCH (09:00)
[2018-08-06] MEDS: NITROFURANTOIN/NITROFURAN MAC 100 MG CAPSULE [MACROBID] PO SCH ×2 (09:00→20:12)
[2018-08-06] MEDS: INSULIN GLARGINE,HUM.REC.ANLOG 100 UNITS/ML SQ SCH (09:01)
[2018-08-06] MEDS: INSULIN LISPRO 100 UNITS/ML SQ PRN ×2 (09:01→21:11)
[2018-08-06] MEDS: DILTIAZEM HCL CD 240 MG ER CAPSULE PO SCH (09:01)
[2018-08-06] MEDS ORDERED: 0.9% SODIUM CHLORIDE 5 ML NEB SOLUTION NEB ONE ×3 (10:03→19:55)
[2018-08-06] MEDS: ALBUTEROL SULFATE 2.5 MG/0.5 ML NEB SOLUTION NEB SCH ×4 (10:07→20:16)
[2018-08-06 13:33] LABS: GLUCOMETER DEV NAME(LOC) 2WR 2E; GLUCOSE,POINT OF CARE 118 MG/DL (70-110)
[2018-08-06 15:56] VITALS: BP 159/85
[2018-08-06 17:43] LABS: GLUCOMETER DEV NAME(LOC) 2WR 1C; GLUCOSE,POINT OF CARE 121 MG/DL (70-110)
[2018-08-06] MEDS: TAMSULOSIN HCL 0.4 MG CAPSULE PO SCH (20:12)
[2018-08-06] MEDS: COLD CREAM, SKIN EMOLLIENT 340 GM JAR TP SCH (20:12)
[2018-08-06 21:00] VITALS: BP 154/56
[2018-08-06 21:38] LABS: GLUCOMETER DEV NAME(LOC) 2WR 1C; GLUCOSE,POINT OF CARE 144 MG/DL (70-110)
[2018-08-07 00:33] VITALS: BP 150/80
[2018-08-07 01:15] LABS: APPEARANCE,URINE CLEAR (CLEAR); BILIRUBIN,URINE NEGATIVE (NEGATIVE); GLUCOSE, URINE (UA) NEGATIVE (NEGATIVE); KETONES,URINE NEGATIVE (NEGATIVE); LEUKOCYTE ESTERASE ,URINE NEGATIVE (NEGATIVE); NITRATE,URINE NEGATIVE (NEGATIVE); OCCULT BLOOD,URINE NEGATIVE (NEGATIVE); PH,URINE 6.5 (5.0-8.0); PROTEIN,URINE POS 1+ (NEGATIVE); UROBILINOGEN,URINE 0.2 mg/dL (<=1.0)
[2018-08-07 02:03] LABS: BACTERIA,URINE None Seen /HPF (None Seen); RBC,URINE 0-2 /HPF (0-2); SQUAMOUS EPITHELIAL CELL,UR Rare /LPF (None Seen); WBC,URINE 0-2 /HPF (0-5)
[2018-08-07] MEDS: LEVOTHYROXINE SODIUM 150 MCG TABLET PO SCH (05:54)
[2018-08-07 06:18] LABS: GLUCOMETER DEV NAME(LOC) 2WR 1C; GLUCOSE,POINT OF CARE 101 MG/DL (70-110)
[2018-08-07] MEDS ORDERED: ALBO180CR TP (07:05)
[2018-08-07 08:00] VITALS: BP 140/67
[2018-08-07] MEDS: ALBUTEROL SULFATE 2.5 MG/0.5 ML NEB SOLUTION NEB SCH ×4 (08:38→20:17)
[2018-08-07] MEDS: DOCUSATE SODIUM 250 MG CAPSULE PO SCH ×2 (09:04→20:12)
[2018-08-07] MEDS: BUDESONIDE/FORMOTEROL FUMARATE 160-4.5 MCG/PUFF 6.9 GM INHALER IH SCH ×2 (09:04→20:12)
[2018-08-07] MEDS: FUROSEMIDE 20 MG TABLET PO SCH (09:04)
[2018-08-07] MEDS: NITROFURANTOIN/NITROFURAN MAC 100 MG CAPSULE [MACROBID] PO SCH (09:04)
[2018-08-07] MEDS: VIT A,C & E/LUTEIN/MINERALS TABLET PO SCH (09:05)
[2018-08-07] MEDS: OMEPRAZOLE 20 MG CAPSULE PO SCH (09:05)
[2018-08-07] MEDS: ASCORBIC ACID 500 MG TABLET PO SCH (09:05)
[2018-08-07] MEDS: CHOLECALCIFEROL (VIT D3) 1,000 UNITS TABLET PO SCH (09:05)
[2018-08-07] MEDS: DILTIAZEM HCL CD 240 MG ER CAPSULE PO SCH (09:05)
[2018-08-07] MEDS: POLYETHYLENE GLYCOL 3350 17 GM PACKET PO SCH ×2 (09:05→20:13)
[2018-08-07] MEDS: LISINOPRIL 20 MG TABLET PO SCH (09:06)
[2018-08-07] MEDS: POTASSIUM CHLORIDE 8 MEQ ER TABLET PO SCH (09:06)
[2018-08-07] MEDS: INSULIN GLARGINE,HUM.REC.ANLOG 100 UNITS/ML SQ SCH (09:07)
[2018-08-07] MEDS: CALCIUM OYSTER SHELL 500 MG TABLET PO SCH (09:09)
[2018-08-07 10:18] LABS: GLUCOMETER DEV NAME(LOC) 2WR 2E; GLUCOSE,POINT OF CARE 92 MG/DL (70-110)
[2018-08-07] MEDS ORDERED: 0.9% SODIUM CHLORIDE 5 ML NEB SOLUTION NEB ONE ×2 (14:02→20:12)
[2018-08-07 15:44] LABS: GLUCOMETER DEV NAME(LOC) 2WR 2E; GLUCOSE,POINT OF CARE 92 MG/DL (70-110)
[2018-08-07 16:03] VITALS: BP 131/60
[2018-08-07 18:02] LABS: GLUCOMETER DEV NAME(LOC) 2WR 1C; GLUCOSE,POINT OF CARE 89 MG/DL (70-110)
[2018-08-07] MEDS: TAMSULOSIN HCL 0.4 MG CAPSULE PO SCH (20:12)
[2018-08-07] MEDS: COLD CREAM, SKIN EMOLLIENT 340 GM JAR TP SCH (20:13)
[2018-08-07] MEDS: INSULIN LISPRO 100 UNITS/ML SQ PRN (21:11)
[2018-08-07 21:13] LABS: GLUCOMETER DEV NAME(LOC) 2WR 1C; GLUCOSE,POINT OF CARE 158 MG/DL (70-110)
[2018-08-07 23:55] VITALS: BP 132/55
[2018-08-08] MEDS: LEVOTHYROXINE SODIUM 150 MCG TABLET PO SCH (05:27)
[2018-08-08 05:38] LABS: GLUCOMETER DEV NAME(LOC) 2WR 2E; GLUCOSE,POINT OF CARE 99 MG/DL (70-110)
[2018-08-08 07:05] VITALS: BP 137/57
[2018-08-08 08:44] LABS: ANION GAP 0 mmol/L (8-16); CARBON DIOXIDE 34 mmol/L (22-29); CHLORIDE 103 mmol/L (98-107); CREATININE 0.69 mg/dL (0.60-1.30); GLUCOSE,RANDOM 93 mg/dL (70-110); POTASSIUM 4.1 mmol/L (3.5-5.1); SODIUM SERUM 137 mmol/L (136-145); UREA NITROGEN, BLOOD 14 mg/dL (7-18)
[2018-08-08 08:45] LABS: GLOMERULAR FILTR. RATE CALC > 60 mL/min (>60)
[2018-08-08] MEDS: ALBUTEROL SULFATE 2.5 MG/0.5 ML NEB SOLUTION NEB SCH ×2 (08:55→13:00)
[2018-08-08] MEDS: IPRATROPIUM BROMIDE 0.5 MG/2.5 ML NEB SOLUTION NEB PRN (08:55)
[2018-08-08] MEDS ORDERED: LISINOPRIL 20 MG TABLET PO SCH (09:00)
[2018-08-08] MEDS: CALCIUM OYSTER SHELL 500 MG TABLET PO SCH (09:18)
[2018-08-08] MEDS: DOCUSATE SODIUM 250 MG CAPSULE PO SCH (09:18)
[2018-08-08] MEDS: ASCORBIC ACID 500 MG TABLET PO SCH (09:18)
[2018-08-08] MEDS: FUROSEMIDE 20 MG TABLET PO SCH (09:18)
[2018-08-08] MEDS: POLYETHYLENE GLYCOL 3350 17 GM PACKET PO SCH (09:18)
[2018-08-08] MEDS: CHOLECALCIFEROL (VIT D3) 1,000 UNITS TABLET PO SCH (09:18)
[2018-08-08] MEDS: BUDESONIDE/FORMOTEROL FUMARATE 160-4.5 MCG/PUFF 6.9 GM INHALER IH SCH (09:19)
[2018-08-08] MEDS: DILTIAZEM HCL CD 240 MG ER CAPSULE PO SCH (09:19)
[2018-08-08] MEDS: VIT A,C & E/LUTEIN/MINERALS TABLET PO SCH (09:19)
[2018-08-08] MEDS: OMEPRAZOLE 20 MG CAPSULE PO SCH (09:20)
[2018-08-08] MEDS: POTASSIUM CHLORIDE 8 MEQ ER TABLET PO SCH (09:20)
[2018-08-08] MEDS: INSULIN GLARGINE,HUM.REC.ANLOG 100 UNITS/ML SQ SCH (09:32)
[2018-08-08 12:23] LABS: GLUCOMETER DEV NAME(LOC) 2WR 2E; GLUCOSE,POINT OF CARE 150 MG/DL (70-110)
[2018-08-08 17:48] LABS: GLUCOMETER DEV NAME(LOC) 2WR 2E; GLUCOSE,POINT OF CARE 114 MG/DL (70-110)
[2018-08-14] MEDS ORDERED: DILT120C88 PO (09:40)
[2018-08-14] MEDS ORDERED: LEVO112T4 PO (09:45)
[2018-08-14] MEDS ORDERED: INSNOV SQ (09:45)
[2018-08-14] MEDS ORDERED: PARO10TA89 PO (09:45)
[2018-08-14] MEDS ORDERED: INSU100I26 SQ (09:45)
[2018-08-14] MEDS ORDERED: LATA2.5D2 OU (09:45)
[2018-08-14] MEDS ORDERED: LISI-662 PO (09:45)
[2018-08-14] MEDS ORDERED: FERR-89 PO (09:45)
[2018-08-14] MEDS ORDERED: IPRA3AMP24 NEB (09:45)
[2018-08-14] MEDS ORDERED: ESOM40CA PO (09:45)
== END 2018-08-08 14:50 | disposition home health service (06) | DRG 65 ==
LOC: 2WR 17:45
PROVIDERS: ADMIT Physical Medicine & Rehabilitation; ATTEND Physical Medicine & Rehabilitation
DX: I61.4 Nontraumatic intracerebral hemorrhage in cerebellum (principal); G81.94 Hemiplegia, unspecified affecting left nondominant side; E87.1 Hypo-osmolality and hyponatremia; N39.0 Urinary tract infection, site not specified; I50.30 Unspecified diastolic (congestive) heart failure; E46 Unspecified protein-calorie malnutrition; E03.9 Hypothyroidism, unspecified; E11.40 Type 2 diabetes mellitus with diabetic neuropathy, unspecified; E11.51 Type 2 diabetes mellitus with diabetic peripheral angiopathy without gangrene; E78.5 Hyperlipidemia, unspecified; E87.6 Hypokalemia; G31.84 Mild cognitive impairment of uncertain or unknown etiology; I11.0 Hypertensive heart disease with heart failure; I25.10 Atherosclerotic heart disease of native coronary artery without angina pectoris; I48.0 Paroxysmal atrial fibrillation; I48.2 Chronic atrial fibrillation; I65.22 Occlusion and stenosis of left carotid artery; I70.202 Unspecified atherosclerosis of native arteries of extremities, left leg; J44.9 Chronic obstructive pulmonary disease, unspecified; K21.9 Gastro-esophageal reflux disease without esophagitis; K59.09 Other constipation; E78.00 Pure hypercholesterolemia, unspecified; Z96.642 Presence of left artificial hip joint; N31.9 Neuromuscular dysfunction of bladder, unspecified; Z79.899 Other long term (current) drug therapy; Z86.718 Personal history of other venous thrombosis and embolism; Z99.81 Dependence on supplemental oxygen; Z85.038 Personal history of other malignant neoplasm of large intestine; Z90.49 Acquired absence of other specified parts of digestive tract; Z98.49 Cataract extraction status, unspecified eye; Z68.28 Body mass index [BMI] 28.0-28.9, adult
CPT/HCPCS: 70450; 83036; 83735; 87081; 87086; 92507; 92508; 92523; 93005; 94640; 97110; 97112; 97116; 97150; 97162; 97166; 97530; 97535; 99366; J1815

== ENCOUNTER → 2018-08-14 | Outpatient (CLI) | payer MEDICARE, OTHER ==
[~2018-08-14] MED LIST changes: -ACET-784 PO; +ALBO180CR TP; -ALBU8.5H8 IH; -AUD NEB; -CALC-1038 PO; -CRAN500C5 PO; -DILT120C48 PO; +DILT120C88 PO; +DILT240C96 PO; +ESOM40CA PO; +INSLAN SQ; +INSNOV SQ; -INSU100I3 SQ; +INSU100V SQ; -IPRNEB IH; +LATA2.5D2 OU; +LEVO150 PO; +MIRALAX PO; -ONDA4 PO; +OS500 PO; -OXYB5XL PO; +PARO10TA89 PO; -RIVA15T PO; +TAMS0.4C32 PO; -[UNRECOGNIZED DRUG - CODE] PO
[2018-08-14 09:23] VITALS: BP 135/72
== END | disposition home or self-care (01) ==
LOC: SRCNTR 09:17
PROVIDERS: ATTEND Hospitalist
DX: J44.9 Chronic obstructive pulmonary disease, unspecified (principal); E11.51 Type 2 diabetes mellitus with diabetic peripheral angiopathy without gangrene; E11.40 Type 2 diabetes mellitus with diabetic neuropathy, unspecified; N63.10 Unspecified lump in the right breast, unspecified quadrant; R91.8 Other nonspecific abnormal finding of lung field; E04.1 Nontoxic single thyroid nodule; I48.91 Unspecified atrial fibrillation; Z87.81 Personal history of (healed) traumatic fracture; Z85.038 Personal history of other malignant neoplasm of large intestine; Z99.81 Dependence on supplemental oxygen
CPT/HCPCS: G0463

== ENCOUNTER 2018-09-29 10:20 | Inpatient (IN) | payer MEDICARE, OTHER ==
[~2018-09-29] VITALS: Ht 162.6 cm; Wt 72.5 kg
[~2018-09-29 10:20] MED LIST changes: -ALBO180CR TP; -DILT240C96 PO; -INSLAN SQ; -INSU100V SQ; -LEVO150 PO; -OMEP20 PO; -TAMS0.4C32 PO
[2018-09-29 11:54] LABS: GLUCOSE,POINT OF CARE 136 MG/DL (70-110)
[2018-09-29 12:38] LABS: BASOPHILS % (AUTO) 0.8 % (0.0-2.0); EOSINOPHILS % (AUTO) 3.6 % (1.0-6.0); HEMATOCRIT 36.9 % (36-46); HEMOGLOBIN 11.9 g/dL (12.0-16.0); LYMPHOCYTES # (AUTO) 0.9 K/uL (1.0-4.8); LYMPHOCYTES % (AUTO) 9.6 % (22.0-44.0); MEAN CORPUSCULAR HEMOGLOBIN 26.9 pg (26.0-34.0); MEAN CORPUSCULAR HGB CONC 32.1 G/dL (31.0-37.0); MEAN CORPUSCULAR VOLUME 84 fL (80-100); MONOCYTES # (AUTO) 0.5 K/uL (0.1-1.0); MONOCYTES % (AUTO) 5.6 % (2.0-9.0); NEUTROPHILS # (AUTO) 7.4 K/uL (1.8-7.7); NEUTROPHILS % (AUTO) 80.4 % (40.0-70.0); PLATELET COUNT (AUTO) 257 K/uL (150-450); RED BLOOD CELL COUNT(AUTO) 4.41 MIL/uL (4.00-5.20); RED CELL DISTRIBUTION WIDTH 17.6 % (11.5-14.5)
[2018-09-29] MEDS ORDERED: DILTIAZEM HCL 5 MG/ML 5 ML VIAL IVP ONE (12:45)
[2018-09-29 12:51] LABS: APPEARANCE,URINE CLOUDY (CLEAR); GLUCOSE, URINE (UA) NEGATIVE (NEGATIVE); KETONES,URINE 15 mg/dL (NEGATIVE); LEUKOCYTE ESTERASE ,URINE SMALL (NEGATIVE); NITRATE,URINE NEGATIVE (NEGATIVE); OCCULT BLOOD,URINE NEGATIVE (NEGATIVE); PH,URINE 5.5 (5.0-8.0); PROTEIN,URINE SEE CONFIRM (NEGATIVE)
[2018-09-29 12:57] LABS: BILIRUBIN,URINE PRELIM. POSITIVE (NEGATIVE)
[2018-09-29 13:05] LABS: SULFOSALICYLIC ACID,URINE 3+ (Negative)
[2018-09-29 13:07] LABS: BACTERIA,URINE Few /HPF (None Seen); RBC,URINE 0-2 /HPF (0-2); SQUAMOUS EPITHELIAL CELL,UR Moderate /LPF (None Seen)
[2018-09-29 13:26] LABS: ANION GAP 6 mmol/L (8-16); CALCIUM, TOTAL 9.5 mg/dL (8.8-10.5); CARBON DIOXIDE 30 mmol/L (22-29); CHLORIDE 101 mmol/L (98-107); GLOMERULAR FILTR. RATE CALC > 60 mL/min (>60); GLUCOSE,RANDOM 124 mg/dL (70-110); SODIUM SERUM 137 mmol/L (136-145); UREA NITROGEN, BLOOD 12 mg/dL (7-18)
[2018-09-29 13:32] LABS: ALANINE AMINOTRANSFERASE 30 U/L (12-78); ALBUMIN 2.7 g/dL (3.4-5.0); ALKALINE PHOSPHATASE 116 U/L (46-116); ASPARTATE AMINOTRANSFERASE 28 U/L (15-37); BILIRUBIN,TOTAL 0.9 mg/dL (0.1-1.0); TOTAL PROTEIN, SERUM 8.2 g/dL (6.4-8.2)
[2018-09-29 13:34] LABS: LACTIC ACID 1.4 mmol/L (0.4-2.0)
[2018-09-29] MEDS ORDERED: CefTRIAXone 1 GM/DEXTROSE 50 ML IV ONE (14:15)
[2018-09-29 17:25] VITALS: BP 130/93
[2018-09-29 19:32] VITALS: BP 140/116
[2018-09-29 20:04] LABS: GLUCOMETER DEV NAME(LOC) 5N.2; GLUCOSE,POINT OF CARE 124 MG/DL (70-110)
[2018-09-29] MEDS ORDERED: ONDANSETRON HCL 4 MG/2 ML VIAL IVP PRN (21:45)
[2018-09-29] MEDS: DOCUSATE SODIUM 100 MG CAPSULE PO SCH (21:45)
[2018-09-29] MEDS ORDERED: 0.9% SODIUM CHLORIDE 10 ML SYRINGE IVP PRN (21:45)
[2018-09-29] MEDS ORDERED: POTASSIUM CHL 10 MEQ/WATER 50 ML IV PRN (21:45)
[2018-09-29] MEDS ORDERED: OxyCODONE HCL/ACETAMINOPHEN 5-325 MG TABLET PO PRN ×2 (21:45)
[2018-09-29] MEDS ORDERED: ACETAMINOPHEN 325 MG TABLET PO PRN (21:45)
[2018-09-29] MEDS ORDERED: MAGNESIUM HYDROXIDE SUSPENSION 30 ML UDCUP PO PRN (21:45)
[2018-09-29] MEDS ORDERED: POTASSIUM CHLORIDE 20 MEQ ER TABLET PO PRN (21:45)
[2018-09-29] MEDS ORDERED: RIVA1TAB PO (21:46)
[2018-09-29] MEDS ORDERED: ALBUTEROL SULFATE 2.5 MG/0.5 ML NEB SOLUTION NEB SCH (23:00)
[2018-09-29] MEDS: MethylPREDNISolone SOD SUCC 125 MG/2 ML VIAL IVP SCH (23:38)
[2018-09-29] MEDS: DILTIAZEM HCL 60 MG TABLET PO SCH (23:48)
[2018-09-29 23:54] VITALS: BP 145/99
[2018-09-30] MEDS: IPRATROPIUM BROMIDE 0.5 MG/2.5 ML NEB SOLUTION NEB SCH ×4 (02:00→20:54)
[2018-09-30] MEDS: ALBUTEROL SULFATE 2.5 MG/0.5 ML NEB SOLUTION NEB SCH ×4 (02:00→20:54)
[2018-09-30 05:04] VITALS: BP 121/98
[2018-09-30] MEDS: LEVOTHYROXINE SODIUM 112 MCG TABLET PO SCH (05:30)
[2018-09-30 06:21] LABS: BASOPHILS % (AUTO) 0.3 % (0.0-2.0); EOSINOPHILS % (AUTO) 0.1 % (1.0-6.0); HEMATOCRIT 38.3 % (36-46); HEMOGLOBIN 12.3 g/dL (12.0-16.0); LYMPHOCYTES # (AUTO) 0.2 K/uL (1.0-4.8); LYMPHOCYTES % (AUTO) 2.9 % (22.0-44.0); MEAN CORPUSCULAR HEMOGLOBIN 26.3 pg (26.0-34.0); MEAN CORPUSCULAR HGB CONC 32.2 G/dL (31.0-37.0); MEAN CORPUSCULAR VOLUME 82 fL (80-100); MONOCYTES # (AUTO) 0.1 K/uL (0.1-1.0); MONOCYTES % (AUTO) 0.7 % (2.0-9.0); NEUTROPHILS # (AUTO) 8.1 K/uL (1.8-7.7); PLATELET COUNT (AUTO) 278 K/uL (150-450); RED BLOOD CELL COUNT(AUTO) 4.69 MIL/uL (4.00-5.20); RED CELL DISTRIBUTION WIDTH 17.4 % (11.5-14.5)
[2018-09-30 06:57] LABS: ANION GAP 9 mmol/L (8-16); CALCIUM, TOTAL 9.9 mg/dL (8.8-10.5); CARBON DIOXIDE 28 mmol/L (22-29); CHLORIDE 101 mmol/L (98-107); CREATININE 0.66 mg/dL (0.60-1.30); GLUCOSE,RANDOM 153 mg/dL (70-110); POTASSIUM 4.3 mmol/L (3.5-5.1); SODIUM SERUM 138 mmol/L (136-145); UREA NITROGEN, BLOOD 12 mg/dL (7-18)
[2018-09-30 07:06] LABS: GLOMERULAR FILTR. RATE CALC > 60 mL/min (>60)
[2018-09-30 07:25] VITALS: BP 132/89
[2018-09-30 07:44] LABS: THYROID STIMULATING HORMONE 0.11 uIU/mL (0.36-3.74)
[2018-09-30 07:51] LABS: B-TYPE NATRIURETIC PEPTIDE 460 pg/mL (0-100)
[2018-09-30] MEDS: PANTOPRAZOLE SODIUM 40 MG/VIAL IVP SCH (08:29)
[2018-09-30] MEDS: DOCUSATE SODIUM 100 MG CAPSULE PO SCH ×3 (08:29→21:51)
[2018-09-30] MEDS: MethylPREDNISolone SOD SUCC 125 MG/2 ML VIAL IVP SCH ×3 (08:30→23:55)
[2018-09-30] MEDS: FUROSEMIDE 40 MG/4 ML VIAL IVP SCH ×2 (08:30→21:01)
[2018-09-30] MEDS: METOPROLOL TARTRATE 25 MG TABLET PO SCH ×3 (08:32→21:51)
[2018-09-30] MEDS: DILTIAZEM HCL 60 MG TABLET PO SCH ×3 (08:32→23:55)
[2018-09-30] MEDS: PARoxetine HCL 10 MG TABLET PO SCH (08:33)
[2018-09-30] MEDS ORDERED: FUROSEMIDE 40 MG/4 ML VIAL IVP SCH (09:00)
[2018-09-30] MEDS: LISINOPRIL 20 MG TABLET PO SCH (09:00)
[2018-09-30 11:20] VITALS: BP 112/69
[2018-09-30 15:09] VITALS: BP 120/76
[2018-09-30] MEDS ORDERED: DEXTROSE 50%-WATER 25 GM/50 ML SYRINGE IVP PRN (17:30)
[2018-09-30] MEDS: RIVAROXABAN 15 MG TABLET PO SCH (18:06)
[2018-09-30] MEDS: INSULIN LISPRO 100 UNITS/ML SQ PRN ×2 (18:09→23:47)
[2018-09-30 19:29] VITALS: BP 126/80
[2018-09-30 23:20] VITALS: BP 114/61
[2018-10-01] MEDS: ALBUTEROL SULFATE 2.5 MG/0.5 ML NEB SOLUTION NEB SCH ×4 (02:00→20:17)
[2018-10-01] MEDS: IPRATROPIUM BROMIDE 0.5 MG/2.5 ML NEB SOLUTION NEB SCH ×4 (02:00→20:17)
[2018-10-01 03:08] VITALS: BP 126/69
[2018-10-01] MEDS: LEVOTHYROXINE SODIUM 112 MCG TABLET PO SCH (06:09)
[2018-10-01] MEDS: INSULIN LISPRO 100 UNITS/ML SQ PRN ×4 (06:12→21:20)
[2018-10-01 06:55] LABS: BASOPHILS % (AUTO) 0.1 % (0.0-2.0); EOSINOPHILS % (AUTO) 0 % (1.0-6.0); HEMATOCRIT 35.6 % (36-46); LYMPHOCYTES # (AUTO) 0.4 K/uL (1.0-4.8); LYMPHOCYTES % (AUTO) 4.1 % (22.0-44.0); MEAN CORPUSCULAR HEMOGLOBIN 27.5 pg (26.0-34.0); MEAN CORPUSCULAR HGB CONC 33.6 G/dL (31.0-37.0); MEAN CORPUSCULAR VOLUME 82 fL (80-100); MONOCYTES # (AUTO) 0.2 K/uL (0.1-1.0); MONOCYTES % (AUTO) 1.4 % (2.0-9.0); NEUTROPHILS # (AUTO) 9.9 K/uL (1.8-7.7); PLATELET COUNT (AUTO) 301 K/uL (150-450); RED BLOOD CELL COUNT(AUTO) 4.35 MIL/uL (4.00-5.20); RED CELL DISTRIBUTION WIDTH 17.6 % (11.5-14.5)
[2018-10-01 07:04] LABS: NEUTROPHILS % (AUTO) 94.4 % (40.0-70.0)
[2018-10-01 07:11] VITALS: BP 140/75
[2018-10-01 07:20] LABS: ALANINE AMINOTRANSFERASE 29 U/L (12-78); ALBUMIN 2.7 g/dL (3.4-5.0); ALKALINE PHOSPHATASE 100 U/L (46-116); ANION GAP 6 mmol/L (8-16); ASPARTATE AMINOTRANSFERASE 25 U/L (15-37); BILIRUBIN,TOTAL 0.5 mg/dL (0.1-1.0); CARBON DIOXIDE 31 mmol/L (22-29); CHLORIDE 95 mmol/L (98-107); CREATININE 0.89 mg/dL (0.60-1.30); GLUCOSE,RANDOM 234 mg/dL (70-110); POTASSIUM 3.8 mmol/L (3.5-5.1); SODIUM SERUM 132 mmol/L (136-145); TOTAL PROTEIN, SERUM 7.8 g/dL (6.4-8.2); UREA NITROGEN, BLOOD 24 mg/dL (7-18)
[2018-10-01 07:21] LABS: GLOMERULAR FILTR. RATE CALC > 60 mL/min (>60)
[2018-10-01 07:39] LABS: GLUCOMETER DEV NAME(LOC) 5S.2; GLUCOSE,POINT OF CARE 230 MG/DL (70-110)
[2018-10-01 07:39] LABS: GLUCOMETER DEV NAME(LOC) 5S.2; GLUCOSE,POINT OF CARE 324 MG/DL (70-110)
[2018-10-01] MEDS: METOPROLOL TARTRATE 25 MG TABLET PO SCH ×2 (08:30→21:00)
[2018-10-01] MEDS: PANTOPRAZOLE SODIUM 40 MG/VIAL IVP SCH (08:30)
[2018-10-01] MEDS: MethylPREDNISolone SOD SUCC 125 MG/2 ML VIAL IVP SCH ×2 (08:30→15:21)
[2018-10-01] MEDS: FUROSEMIDE 40 MG/4 ML VIAL IVP SCH ×2 (08:30→21:00)
[2018-10-01] MEDS: DOCUSATE SODIUM 100 MG CAPSULE PO SCH ×2 (08:30→20:48)
[2018-10-01] MEDS: DILTIAZEM HCL 60 MG TABLET PO SCH ×3 (08:30→23:35)
[2018-10-01] MEDS: PARoxetine HCL 10 MG TABLET PO SCH (08:31)
[2018-10-01] MEDS: LISINOPRIL 20 MG TABLET PO SCH (08:31)
[2018-10-01] MEDS ORDERED: MAGNESIUM SULFATE 4 GM/WATER 100 ML IV PRN (09:30)
[2018-10-01] MEDS ORDERED: MAGNESIUM SULFATE 2 GM/WATER 50 ML IV PRN (09:30)
[2018-10-01] MEDS: MAGNESIUM OXIDE 400 MG TABLET PO PRN ×3 (10:44→17:45)
[2018-10-01 11:24] VITALS: BP 120/67
[2018-10-01 11:24] LABS: GLUCOMETER DEV NAME(LOC) 5N.1; GLUCOSE,POINT OF CARE 289 MG/DL (70-110)
[2018-10-01 11:24] LABS: GLUCOMETER DEV NAME(LOC) 5N.1; GLUCOSE,POINT OF CARE 326 MG/DL (70-110)
[2018-10-01 12:14] LABS: GLUCOMETER DEV NAME(LOC) 5S.1; GLUCOSE,POINT OF CARE 277 MG/DL (70-110)
[2018-10-01 15:15] VITALS: BP 128/72
[2018-10-01] MEDS: RIVAROXABAN 15 MG TABLET PO SCH (17:30)
[2018-10-01 19:34] LABS: GLUCOMETER DEV NAME(LOC) 5S.2; GLUCOSE,POINT OF CARE 288 MG/DL (70-110)
[2018-10-01 20:11] VITALS: BP 112/66
[2018-10-01] MEDS: PredniSONE 20 MG TABLET PO SCH (20:48)
[2018-10-01 23:15] VITALS: BP 112/75
[2018-10-02] MEDS: ALBUTEROL SULFATE 2.5 MG/0.5 ML NEB SOLUTION NEB SCH ×3 (02:15→14:28)
[2018-10-02] MEDS: IPRATROPIUM BROMIDE 0.5 MG/2.5 ML NEB SOLUTION NEB SCH ×3 (02:15→14:28)
[2018-10-02 02:54] LABS: GLUCOMETER DEV NAME(LOC) 5S.1; GLUCOSE,POINT OF CARE 298 MG/DL (70-110)
[2018-10-02 05:00] VITALS: BP 160/78
[2018-10-02] MEDS: INSULIN LISPRO 100 UNITS/ML SQ PRN ×2 (05:31→11:53)
[2018-10-02] MEDS: LEVOTHYROXINE SODIUM 112 MCG TABLET PO SCH (06:02)
[2018-10-02 06:49] LABS: ANION GAP 6 mmol/L (8-16); CALCIUM, TOTAL 9.2 mg/dL (8.8-10.5); CARBON DIOXIDE 31 mmol/L (22-29); CHLORIDE 97 mmol/L (98-107); CREATININE 0.84 mg/dL (0.60-1.30); GLUCOSE,RANDOM 275 mg/dL (70-110); POTASSIUM 3.2 mmol/L (3.5-5.1); SODIUM SERUM 134 mmol/L (136-145); UREA NITROGEN, BLOOD 30 mg/dL (7-18)
[2018-10-02 06:50] LABS: GLOMERULAR FILTR. RATE CALC > 60 mL/min (>60)
[2018-10-02 06:56] LABS: BASOPHILS % (AUTO) 0.2 % (0.0-2.0); EOSINOPHILS % (AUTO) 0 % (1.0-6.0); LYMPHOCYTES # (AUTO) 0.3 K/uL (1.0-4.8); LYMPHOCYTES % (AUTO) 2.7 % (22.0-44.0); MEAN CORPUSCULAR HGB CONC 33.3 G/dL (31.0-37.0); MEAN CORPUSCULAR VOLUME 81 fL (80-100); MONOCYTES # (AUTO) 0.2 K/uL (0.1-1.0); MONOCYTES % (AUTO) 1.9 % (2.0-9.0); NEUTROPHILS # (AUTO) 11.3 K/uL (1.8-7.7); PLATELET COUNT (AUTO) 324 K/uL (150-450); RED BLOOD CELL COUNT(AUTO) 4.44 MIL/uL (4.00-5.20); RED CELL DISTRIBUTION WIDTH 17.3 % (11.5-14.5)
[2018-10-02 07:01] LABS: NEUTROPHILS % (AUTO) 95.2 % (40.0-70.0)
[2018-10-02] MEDS: PANTOPRAZOLE SODIUM 40 MG/VIAL IVP SCH (08:01)
[2018-10-02] MEDS: FUROSEMIDE 40 MG/4 ML VIAL IVP SCH (08:01)
[2018-10-02] MEDS: LISINOPRIL 20 MG TABLET PO SCH (08:02)
[2018-10-02] MEDS: METOPROLOL TARTRATE 25 MG TABLET PO SCH (08:02)
[2018-10-02] MEDS: DOCUSATE SODIUM 100 MG CAPSULE PO SCH (08:02)
[2018-10-02] MEDS: MAGNESIUM OXIDE 400 MG TABLET PO PRN ×3 (08:02→16:01)
[2018-10-02 08:03] VITALS: BP 131/77
[2018-10-02] MEDS: PARoxetine HCL 10 MG TABLET PO SCH (08:03)
[2018-10-02] MEDS: DILTIAZEM HCL 60 MG TABLET PO SCH ×2 (08:03→16:01)
[2018-10-02] MEDS: PredniSONE 20 MG TABLET PO SCH (08:03)
[2018-10-02 11:16] VITALS: BP 138/79
[2018-10-02 12:25] LABS: GLUCOMETER DEV NAME(LOC) 5S.1; GLUCOSE,POINT OF CARE 283 MG/DL (70-110)
[2018-10-02] MEDS ORDERED: AUD NEB (12:46)
[2018-10-02] MEDS ORDERED: METO25 PO (12:47)
[2018-10-02] MEDS ORDERED: PRED5 PO (12:50)
[2018-10-02] MEDS ORDERED: ACET-2247 PO (12:52)
[2018-10-02] MEDS ORDERED: MOM30 PO (12:53)
[2018-10-02 15:26] VITALS: BP 120/79
[2018-10-02] MEDS: RIVAROXABAN 15 MG TABLET PO SCH (17:44)
[2018-10-02 18:45] LABS: GLUCOMETER DEV NAME(LOC) 5S.2; GLUCOSE,POINT OF CARE 275 MG/DL (70-110)
[2018-10-02] MEDS ORDERED: FUROSEMIDE 40 MG TABLET PO SCH (21:00)
[2018-10-02 22:49] LABS: GLUCOMETER DEV NAME(LOC) 5S.1; GLUCOSE,POINT OF CARE 265 MG/DL (70-110)
== END 2018-10-02 18:20 | disposition home or self-care (01) | DRG 291 ==
LOC: EMS 10:21 → 5S 16:13 → 5N 10-01 21:32 → 5S 10-01 21:36
PROVIDERS: ADMIT Internal Medicine; ATTEND Internal Medicine
DX: I11.0 Hypertensive heart disease with heart failure (principal); E43 Unspecified severe protein-calorie malnutrition; N39.0 Urinary tract infection, site not specified; I65.22 Occlusion and stenosis of left carotid artery; I50.43 Acute on chronic combined systolic (congestive) and diastolic (congestive) heart failure; I48.91 Unspecified atrial fibrillation; J44.9 Chronic obstructive pulmonary disease, unspecified; E03.9 Hypothyroidism, unspecified; E78.00 Pure hypercholesterolemia, unspecified; E11.9 Type 2 diabetes mellitus without complications; Z66 Do not resuscitate; I25.10 Atherosclerotic heart disease of native coronary artery without angina pectoris; F17.210 Nicotine dependence, cigarettes, uncomplicated; E78.5 Hyperlipidemia, unspecified; Z68.27 Body mass index [BMI] 27.0-27.9, adult; Z86.73 Personal history of transient ischemic attack (TIA), and cerebral infarction without residual deficits
CPT/HCPCS: 83605; 83735; 84132; 84443; 87040; 93005; 93306; 93971; 94640; 96365; 96375; 97162; 97530; C9113; G0378; J0696; J1940; J2930; J3490

== ENCOUNTER → 2018-11-06 | Outpatient (CLI) | payer MEDICARE, OTHER ==
[~2018-11-06] MED LIST changes: +ACET-2247 PO; +AUD NEB; -FERR-89 PO; +LEVO250 PO; +METO25 PO; +OCUVITE SOFTGE1 EACH PO; +PARO20TA24 PO; +PRED10 PO; +PRED5 PO; +RIVA1TAB PO; -VIT1CAPS21 PO
[2018-11-06 08:43] VITALS: BP 80/48
== END | disposition home or self-care (01) ==
LOC: SRCNTR 08:26
PROVIDERS: ATTEND Hospitalist
DX: E78.5 Hyperlipidemia, unspecified (principal); I13.0 Hypertensive heart and chronic kidney disease with heart failure and stage 1 through stage 4 chronic kidney disease, or unspecified chronic kidney disease; E11.22 Type 2 diabetes mellitus with diabetic chronic kidney disease; N18.9 Chronic kidney disease, unspecified; I50.9 Heart failure, unspecified; E11.65 Type 2 diabetes mellitus with hyperglycemia; J44.9 Chronic obstructive pulmonary disease, unspecified; I48.91 Unspecified atrial fibrillation
CPT/HCPCS: G0463

== ENCOUNTER → 2018-11-14 | Outpatient (CLI) | payer MEDICARE, OTHER ==
[2018-11-14 15:42] VITALS: BP 104/64
== END | disposition home or self-care (01) ==
LOC: SRCNTR 11:35
PROVIDERS: ATTEND Hospitalist
DX: E78.5 Hyperlipidemia, unspecified (principal); E03.9 Hypothyroidism, unspecified; I13.0 Hypertensive heart and chronic kidney disease with heart failure and stage 1 through stage 4 chronic kidney disease, or unspecified chronic kidney disease; E11.22 Type 2 diabetes mellitus with diabetic chronic kidney disease; N18.9 Chronic kidney disease, unspecified; I50.9 Heart failure, unspecified
CPT/HCPCS: 82962; G0463

== ENCOUNTER 2018-12-05 13:40 | Inpatient (IN) | payer MEDICARE, OTHER ==
[~2018-12-05] VITALS: Ht 170.2 cm; Wt 84.4 kg
[2018-12-05 14:39] LABS: GLUCOSE,POINT OF CARE 280 MG/DL (70-110)
[2018-12-05 16:07] LABS: ANION GAP 4 mmol/L (8-16); CALCIUM, TOTAL 9.2 mg/dL (8.8-10.5); CARBON DIOXIDE 32 mmol/L (22-29); CHLORIDE 102 mmol/L (98-107); CREATININE 0.87 mg/dL (0.60-1.30); GLUCOSE,RANDOM 277 mg/dL (70-110); POTASSIUM 4.1 mmol/L (3.5-5.1); SODIUM SERUM 138 mmol/L (136-145); UREA NITROGEN, BLOOD 19 mg/dL (7-18)
[2018-12-05 16:09] LABS: BASOPHILS % (AUTO) 0.3 % (0.0-2.0); EOSINOPHILS % (AUTO) 0.4 % (1.0-6.0); GLOMERULAR FILTR. RATE CALC > 60 mL/min (>60); HEMATOCRIT 34.9 % (36-46); HEMOGLOBIN 10.8 g/dL (12.0-16.0); LYMPHOCYTES # (AUTO) 0.5 K/uL (1.0-4.8); MEAN CORPUSCULAR HEMOGLOBIN 25.9 pg (26.0-34.0); MEAN CORPUSCULAR HGB CONC 30.8 G/dL (31.0-37.0); MEAN CORPUSCULAR VOLUME 84 fL (80-100); MONOCYTES # (AUTO) 0.5 K/uL (0.1-1.0); MONOCYTES % (AUTO) 3.5 % (2.0-9.0); PLATELET COUNT (AUTO) 242 K/uL (150-450); RED BLOOD CELL COUNT(AUTO) 4.17 MIL/uL (4.00-5.20); RED CELL DISTRIBUTION WIDTH 22.7 % (11.5-14.5)
[2018-12-05 16:14] LABS: ALANINE AMINOTRANSFERASE 23 U/L (12-78); ALBUMIN 2.7 g/dL (3.4-5.0); ALKALINE PHOSPHATASE 80 U/L (46-116); ASPARTATE AMINOTRANSFERASE 16 U/L (15-37); BILIRUBIN,TOTAL 0.6 mg/dL (0.1-1.0); CREATINE KINASE, TOTAL ONLY 46 U/L (26-192); TOTAL PROTEIN, SERUM 7.3 g/dL (6.4-8.2)
[2018-12-05 16:15] LABS: INR 1.6 (0.9-1.1); PROTHROMBIN TIME 16.8 SEC (9.4-11.6)
[2018-12-05 16:17] LABS: NEUTROPHILS % (AUTO) 92.8 % (40.0-70.0)
[2018-12-05 16:55] LABS: B-TYPE NATRIURETIC PEPTIDE 870 pg/mL (0-100)
[2018-12-05] MEDS ORDERED: FUROSEMIDE 40 MG/4 ML VIAL IVP ONE (17:30)
[2018-12-05] MEDS ORDERED: ACETAMINOPHEN 325 MG TABLET PO PRN ×2 (17:45→20:00)
[2018-12-05] MEDS ORDERED: ONDANSETRON HCL 4 MG/2 ML VIAL IVP PRN (17:45)
[2018-12-05] MEDS ORDERED: 0.9% SODIUM CHLORIDE 10 ML SYRINGE IVP PRN (17:45)
[2018-12-05] MEDS ORDERED: DEXTROSE 50%-WATER 25 GM/50 ML SYRINGE IVP PRN (18:45)
[2018-12-05 18:49] VITALS: BP 156/63
[2018-12-05 19:36] VITALS: BP 109/51
[2018-12-05] MEDS ORDERED: OxyCODONE HCL/ACETAMINOPHEN 5-325 MG TABLET PO PRN (20:00)
[2018-12-05] MEDS ORDERED: ALBUTEROL SULFATE 2.5 MG/0.5 ML NEB SOLUTION NEB PRN (20:00)
[2018-12-05] MEDS ORDERED: MAGNESIUM HYDROXIDE SUSPENSION 30 ML UDCUP PO PRN (20:00)
[2018-12-05] MEDS: DOCUSATE SODIUM 100 MG CAPSULE PO SCH (20:57)
[2018-12-05] MEDS: METOPROLOL TARTRATE 25 MG TABLET PO SCH (20:57)
[2018-12-05] MEDS: ATORVASTATIN CALCIUM 20 MG TABLET PO SCH (20:57)
[2018-12-05] MEDS: INSULIN LISPRO 100 UNITS/ML SQ PRN (21:02)
[2018-12-05 22:33] LABS: GLUCOMETER DEV NAME(LOC) 5N.2; GLUCOSE,POINT OF CARE 352 MG/DL (70-110)
[2018-12-05 23:52] VITALS: BP 116/57
[2018-12-06 04:17] VITALS: BP 116/60
[2018-12-06] MEDS: INSULIN LISPRO 100 UNITS/ML SQ PRN ×3 (05:21→18:08)
[2018-12-06 07:49] VITALS: BP 150/72
[2018-12-06 08:16] LABS: BASOPHILS % (AUTO) 0.4 % (0.0-2.0); HEMATOCRIT 33.3 % (36-46); HEMOGLOBIN 10.4 g/dL (12.0-16.0); LYMPHOCYTES # (AUTO) 1.3 K/uL (1.0-4.8); MEAN CORPUSCULAR HEMOGLOBIN 25.9 pg (26.0-34.0); MEAN CORPUSCULAR HGB CONC 31.1 G/dL (31.0-37.0); MEAN CORPUSCULAR VOLUME 83 fL (80-100); MONOCYTES # (AUTO) 0.8 K/uL (0.1-1.0); MONOCYTES % (AUTO) 5.6 % (2.0-9.0); NEUTROPHILS # (AUTO) 12.1 K/uL (1.8-7.7); PLATELET COUNT (AUTO) 203 K/uL (150-450); RED CELL DISTRIBUTION WIDTH 22.8 % (11.5-14.5)
[2018-12-06] MEDS: METOPROLOL TARTRATE 25 MG TABLET PO SCH ×2 (08:18→20:42)
[2018-12-06] MEDS: DOCUSATE SODIUM 100 MG CAPSULE PO SCH ×2 (08:18→20:41)
[2018-12-06] MEDS: FUROSEMIDE 20 MG TABLET PO SCH (08:18)
[2018-12-06] MEDS: FAMOTIDINE 20 MG TABLET PO SCH (08:23)
[2018-12-06 08:36] LABS: ALANINE AMINOTRANSFERASE 20 U/L (12-78); ALBUMIN 2.3 g/dL (3.4-5.0); ALKALINE PHOSPHATASE 73 U/L (46-116); ANION GAP 3 mmol/L (8-16); ASPARTATE AMINOTRANSFERASE 14 U/L (15-37); BILIRUBIN,TOTAL 0.4 mg/dL (0.1-1.0); CALCIUM, TOTAL 8.8 mg/dL (8.8-10.5); CARBON DIOXIDE 33 mmol/L (22-29); CHLORIDE 101 mmol/L (98-107); CREATININE 0.82 mg/dL (0.60-1.30); GLUCOSE,RANDOM 115 mg/dL (70-110); POTASSIUM 3.8 mmol/L (3.5-5.1); SODIUM SERUM 137 mmol/L (136-145); THYROID STIMULATING HORMONE 8.84 uIU/mL (0.36-3.74); TOTAL PROTEIN, SERUM 6.6 g/dL (6.4-8.2); UREA NITROGEN, BLOOD 20 mg/dL (7-18)
[2018-12-06 08:38] LABS: GLOMERULAR FILTR. RATE CALC > 60 mL/min (>60)
[2018-12-06 11:05] VITALS: BP 108/56
[2018-12-06] MEDS: INSULIN GLARGINE,HUM.REC.ANLOG 100 UNITS/ML SQ SCH ×2 (11:48→20:44)
[2018-12-06 15:52] VITALS: BP 135/59
[2018-12-06] MEDS: RIVAROXABAN 15 MG TABLET PO SCH (18:11)
[2018-12-06 20:09] VITALS: BP 132/55
[2018-12-06] MEDS: ATORVASTATIN CALCIUM 20 MG TABLET PO SCH (20:41)
[2018-12-06 21:34] LABS: GLUCOMETER DEV NAME(LOC) 5S.2; GLUCOSE,POINT OF CARE 125 MG/DL (70-110)
[2018-12-06 21:34] LABS: GLUCOMETER DEV NAME(LOC) 5S.2; GLUCOSE,POINT OF CARE 199 MG/DL (70-110)
[2018-12-07 00:24] VITALS: BP 139/67
[2018-12-07 01:18] LABS: GLUCOMETER DEV NAME(LOC) 5N.2; GLUCOSE,POINT OF CARE 167 MG/DL (70-110)
[2018-12-07 01:18] LABS: GLUCOMETER DEV NAME(LOC) 5N.2; GLUCOSE,POINT OF CARE 185 MG/DL (70-110)
[2018-12-07 05:02] VITALS: BP 148/70
[2018-12-07 05:53] LABS: GLUCOMETER DEV NAME(LOC) 5N.2; GLUCOSE,POINT OF CARE 127 MG/DL (70-110)
[2018-12-07 07:39] VITALS: BP 154/89
[2018-12-07] MEDS: FUROSEMIDE 20 MG TABLET PO SCH (08:07)
[2018-12-07] MEDS: DOCUSATE SODIUM 100 MG CAPSULE PO SCH ×2 (08:07→20:08)
[2018-12-07] MEDS: FAMOTIDINE 20 MG TABLET PO SCH (08:07)
[2018-12-07] MEDS: METOPROLOL TARTRATE 25 MG TABLET PO SCH ×2 (08:14→20:08)
[2018-12-07] MEDS: INSULIN GLARGINE,HUM.REC.ANLOG 100 UNITS/ML SQ SCH ×2 (09:31→21:00)
[2018-12-07 11:18] VITALS: BP 128/65
[2018-12-07 15:23] VITALS: BP 106/79
[2018-12-07 15:40] LABS: APPEARANCE,URINE TURBID (CLEAR); BILIRUBIN,URINE NEGATIVE (NEGATIVE); GLUCOSE, URINE (UA) NEGATIVE (NEGATIVE); KETONES,URINE NEGATIVE (NEGATIVE); LEUKOCYTE ESTERASE ,URINE NEGATIVE (NEGATIVE); NITRATE,URINE NEGATIVE (NEGATIVE); OCCULT BLOOD,URINE NEGATIVE (NEGATIVE); PH,URINE 8.5 (5.0-8.0); PROTEIN,URINE TRACE (NEGATIVE)
[2018-12-07] MEDS: RIVAROXABAN 15 MG TABLET PO SCH (17:33)
[2018-12-07] MEDS: INSULIN LISPRO 100 UNITS/ML SQ PRN (17:38)
[2018-12-07 17:49] LABS: GLUCOMETER DEV NAME(LOC) 5N.2; GLUCOSE,POINT OF CARE 156 MG/DL (70-110)
[2018-12-07 17:49] LABS: GLUCOMETER DEV NAME(LOC) 5S.2; GLUCOSE,POINT OF CARE 168 MG/DL (70-110)
[2018-12-07 19:48] VITALS: BP 148/79
[2018-12-07] MEDS: ATORVASTATIN CALCIUM 20 MG TABLET PO SCH (20:08)
[2018-12-07 21:18] LABS: GLUCOMETER DEV NAME(LOC) 5S.2; GLUCOSE,POINT OF CARE 114 MG/DL (70-110)
[2018-12-08 00:37] VITALS: BP 138/89
[2018-12-08 05:10] VITALS: BP 149/87
[2018-12-08 05:54] LABS: GLUCOMETER DEV NAME(LOC) 5S.2; GLUCOSE,POINT OF CARE 96 MG/DL (70-110)
[2018-12-08] MEDS: LEVOTHYROXINE SODIUM 125 MCG TABLET PO SCH (06:02)
[2018-12-08 06:49] LABS: BASOPHILS % (AUTO) 0.5 % (0.0-2.0); EOSINOPHILS % (AUTO) 0.5 % (1.0-6.0); HEMOGLOBIN 11.9 g/dL (12.0-16.0); LYMPHOCYTES # (AUTO) 1.2 K/uL (1.0-4.8); LYMPHOCYTES % (AUTO) 6.8 % (22.0-44.0); MEAN CORPUSCULAR HEMOGLOBIN 25.8 pg (26.0-34.0); MEAN CORPUSCULAR HGB CONC 31.2 G/dL (31.0-37.0); MEAN CORPUSCULAR VOLUME 83 fL (80-100); MONOCYTES % (AUTO) 5.5 % (2.0-9.0); NEUTROPHILS # (AUTO) 15.7 K/uL (1.8-7.7); NEUTROPHILS % (AUTO) 86.7 % (40.0-70.0); PLATELET COUNT (AUTO) 215 K/uL (150-450)
[2018-12-08 06:51] LABS: ANION GAP 7 mmol/L (8-16); CALCIUM, TOTAL 8.6 mg/dL (8.8-10.5); CARBON DIOXIDE 31 mmol/L (22-29); CHLORIDE 96 mmol/L (98-107); CREATININE 0.66 mg/dL (0.60-1.30); GLUCOSE,RANDOM 100 mg/dL (70-110); POTASSIUM 3.2 mmol/L (3.5-5.1); SODIUM SERUM 134 mmol/L (136-145); UREA NITROGEN, BLOOD 13 mg/dL (7-18)
[2018-12-08 06:54] LABS: GLOMERULAR FILTR. RATE CALC > 60 mL/min (>60)
[2018-12-08 07:49] VITALS: BP 155/91
[2018-12-08] MEDS: INSULIN GLARGINE,HUM.REC.ANLOG 100 UNITS/ML SQ SCH ×2 (09:00→20:49)
[2018-12-08] MEDS: METOPROLOL TARTRATE 25 MG TABLET PO SCH ×2 (10:49→20:16)
[2018-12-08] MEDS: FUROSEMIDE 20 MG TABLET PO SCH (10:49)
[2018-12-08] MEDS: DOCUSATE SODIUM 100 MG CAPSULE PO SCH ×2 (10:54→20:16)
[2018-12-08] MEDS: FAMOTIDINE 20 MG TABLET PO SCH (10:54)
[2018-12-08] MEDS ORDERED: POTASSIUM CHL 10 MEQ/WATER 50 ML IV PRN (11:15)
[2018-12-08] MEDS ORDERED: POTASSIUM CHLORIDE 20 MEQ ER TABLET PO PRN (11:15)
[2018-12-08 11:17] VITALS: BP 154/82
[2018-12-08 11:59] LABS: GLUCOMETER DEV NAME(LOC) 5N.2; GLUCOSE,POINT OF CARE 91 MG/DL (70-110)
[2018-12-08 11:59] LABS: GLUCOMETER DEV NAME(LOC) 5N.2; GLUCOSE,POINT OF CARE 70 MG/DL (70-110)
[2018-12-08] MEDS: FLUCONAZOLE 100 MG TABLET PO SCH (12:41)
[2018-12-08] MEDS: NYSTATIN 500,000 UNITS/5 ML SUSPENSION UDCUP PO SCH ×3 (12:42→23:35)
[2018-12-08 12:53] LABS: GLUCOMETER DEV NAME(LOC) 5N.2; GLUCOSE,POINT OF CARE 92 MG/DL (70-110)
[2018-12-08 15:48] VITALS: BP 145/83
[2018-12-08] MEDS: RIVAROXABAN 15 MG TABLET PO SCH (18:16)
[2018-12-08] MEDS: ATORVASTATIN CALCIUM 20 MG TABLET PO SCH (20:16)
[2018-12-08 20:23] VITALS: BP 146/82
[2018-12-08 21:33] LABS: GLUCOMETER DEV NAME(LOC) 5N.2; GLUCOSE,POINT OF CARE 130 MG/DL (70-110)
[2018-12-08 21:34] LABS: GLUCOMETER DEV NAME(LOC) 5S.2; GLUCOSE,POINT OF CARE 196 MG/DL (70-110)
[2018-12-09 00:05] VITALS: BP 144/82
[2018-12-09 04:31] VITALS: BP 140/77
[2018-12-09 05:38] LABS: BASOPHILS % (AUTO) 0.6 % (0.0-2.0); EOSINOPHILS % (AUTO) 1.1 % (1.0-6.0); HEMATOCRIT 35.5 % (36-46); HEMOGLOBIN 11.4 g/dL (12.0-16.0); LYMPHOCYTES % (AUTO) 5.8 % (22.0-44.0); MEAN CORPUSCULAR HEMOGLOBIN 26.3 pg (26.0-34.0); MEAN CORPUSCULAR VOLUME 82 fL (80-100); MONOCYTES # (AUTO) 1.2 K/uL (0.1-1.0); MONOCYTES % (AUTO) 7.1 % (2.0-9.0); NEUTROPHILS # (AUTO) 14.4 K/uL (1.8-7.7); PLATELET COUNT (AUTO) 207 K/uL (150-450); RED BLOOD CELL COUNT(AUTO) 4.32 MIL/uL (4.00-5.20); RED CELL DISTRIBUTION WIDTH 22.2 % (11.5-14.5)
[2018-12-09 05:39] LABS: NEUTROPHILS % (AUTO) 85.4 % (40.0-70.0)
[2018-12-09] MEDS: LEVOTHYROXINE SODIUM 125 MCG TABLET PO SCH (06:12)
[2018-12-09] MEDS: INSULIN LISPRO 100 UNITS/ML SQ PRN (06:16)
[2018-12-09 06:19] LABS: GLUCOMETER DEV NAME(LOC) 5N.2; GLUCOSE,POINT OF CARE 157 MG/DL (70-110)
[2018-12-09 07:56] VITALS: BP 154/79
[2018-12-09] MEDS: INSULIN GLARGINE,HUM.REC.ANLOG 100 UNITS/ML SQ SCH (09:00)
[2018-12-09] MEDS: DOCUSATE SODIUM 100 MG CAPSULE PO SCH (09:08)
[2018-12-09] MEDS: NYSTATIN 500,000 UNITS/5 ML SUSPENSION UDCUP PO SCH ×2 (09:08→16:47)
[2018-12-09] MEDS: FLUCONAZOLE 100 MG TABLET PO SCH (09:08)
[2018-12-09] MEDS: FUROSEMIDE 20 MG TABLET PO SCH (09:09)
[2018-12-09] MEDS: FAMOTIDINE 20 MG TABLET PO SCH (09:09)
[2018-12-09] MEDS: METOPROLOL TARTRATE 25 MG TABLET PO SCH (09:09)
[2018-12-09 11:24] VITALS: BP 135/69
[2018-12-09] MEDS ORDERED: ATOR20TA86 PO (12:41)
[2018-12-09] MEDS ORDERED: DSS100 PO (12:42)
[2018-12-09] MEDS ORDERED: FAMO20 PO (12:43)
[2018-12-09] MEDS ORDERED: FLUC100T PO (12:45)
[2018-12-09] MEDS ORDERED: FURO20 PO (12:46)
[2018-12-09] MEDS ORDERED: INSLAN SQ (12:48)
[2018-12-09] MEDS ORDERED: NYST100026 PO (12:51)
[2018-12-09 15:00] VITALS: BP 156/65
[2018-12-09] MEDS ORDERED: INSU100V SQ (15:11)
[2018-12-09] MEDS ORDERED: OXYC-530 PO (15:14)
[2018-12-09] MEDS ORDERED: MOM30 PO (15:14)
[2018-12-09 19:14] LABS: GLUCOMETER DEV NAME(LOC) 5N.2; GLUCOSE,POINT OF CARE 106 MG/DL (70-110)
[2018-12-09 19:14] LABS: GLUCOMETER DEV NAME(LOC) 5S.2; GLUCOSE,POINT OF CARE 113 MG/DL (70-110)
== END 2018-12-09 17:20 | DRG 292 ==
LOC: EMS 13:41 → 5N 17:54
PROVIDERS: ADMIT Internal Medicine; ATTEND Internal Medicine
DX: I11.0 Hypertensive heart disease with heart failure (principal); B37.0 Candidal stomatitis; I50.33 Acute on chronic diastolic (congestive) heart failure; I48.2 Chronic atrial fibrillation; E11.9 Type 2 diabetes mellitus without complications; Z86.73 Personal history of transient ischemic attack (TIA), and cerebral infarction without residual deficits; J44.9 Chronic obstructive pulmonary disease, unspecified; R09.02 Hypoxemia; E78.00 Pure hypercholesterolemia, unspecified; E03.9 Hypothyroidism, unspecified; F01.50 Vascular dementia, unspecified severity, without behavioral disturbance, psychotic disturbance, mood disturbance, and anxiety; D72.829 Elevated white blood cell count, unspecified; E87.6 Hypokalemia; R62.7 Adult failure to thrive; I25.10 Atherosclerotic heart disease of native coronary artery without angina pectoris; Z90.49 Acquired absence of other specified parts of digestive tract; Z79.4 Long term (current) use of insulin
CPT/HCPCS: 84132; 84443; 93005; 93306; 96374; 97163; G0378; J1815; J1940